=== PATIENT | male | born 1950 | race Caucasian/White ===

== ENCOUNTER → 2019-12-07 09:18 | Outpatient (BNVA) | payer MEDICARE, SELFPAY | PROVIDERS: Family Provider Nurse Practitioner; PCP Nurse Practitioner; Visit Provider Internal Medicine Cardiovascular Disease | DX: I48.91 Unspecified atrial fibrillation (principal); E11.9 Type 2 diabetes mellitus without complications; F41.9 Anxiety disorder, unspecified; E55.9 Vitamin D deficiency, unspecified; F41.1 Generalized anxiety disorder; E78.2 Mixed hyperlipidemia; E61.1 Iron deficiency; I10 Essential (primary) hypertension; I48.20 Chronic atrial fibrillation, unspecified | CPT/HCPCS: 36415; 80053; 80061; 83036; 85610 ==

== ENCOUNTER → 2020-01-04 09:23 | Outpatient (BNVA) | payer MEDICARE, SELFPAY | PROVIDERS: Family Provider Nurse Practitioner; PCP Nurse Practitioner; Visit Provider Internal Medicine Cardiovascular Disease | DX: I48.20 Chronic atrial fibrillation, unspecified (principal) | CPT/HCPCS: 85610 ==

== ENCOUNTER → 2020-02-01 09:35 | Outpatient (BNVA) | payer MEDICARE, SELFPAY | PROVIDERS: Family Provider Nurse Practitioner; PCP Nurse Practitioner; Visit Provider Internal Medicine Cardiovascular Disease | DX: I48.91 Unspecified atrial fibrillation (principal) | CPT/HCPCS: 85610 ==

== ENCOUNTER → 2020-02-29 09:11 | Outpatient (BNVA) | payer MEDICARE, SELFPAY | PROVIDERS: Family Provider Nurse Practitioner; PCP Nurse Practitioner; Visit Provider Internal Medicine Cardiovascular Disease | DX: I48.91 Unspecified atrial fibrillation (principal) | CPT/HCPCS: 85610 ==

== ENCOUNTER → 2020-03-28 09:14 | Outpatient (BNVA) | payer MEDICARE, SELFPAY | PROVIDERS: Family Provider Nurse Practitioner; PCP Nurse Practitioner; Visit Provider Internal Medicine Cardiovascular Disease | DX: I48.20 Chronic atrial fibrillation, unspecified (principal) | CPT/HCPCS: 85610 ==

== ENCOUNTER → 2020-04-27 09:41 | Outpatient (BNVA) | payer MEDICARE, SELFPAY | PROVIDERS: Family Provider Nurse Practitioner; PCP Nurse Practitioner; Visit Provider Internal Medicine Cardiovascular Disease | DX: I48.20 Chronic atrial fibrillation, unspecified (principal); Z79.01 Long term (current) use of anticoagulants | CPT/HCPCS: 85610 ==

== ENCOUNTER → 2020-05-25 09:06 | Outpatient (BNVA) | payer MEDICARE, SELFPAY | PROVIDERS: Family Provider Nurse Practitioner; PCP Nurse Practitioner; Visit Provider Internal Medicine Cardiovascular Disease | DX: I48.20 Chronic atrial fibrillation, unspecified (principal); Z79.01 Long term (current) use of anticoagulants | CPT/HCPCS: 85610 ==

== ENCOUNTER → 2020-06-14 08:41 | Outpatient (BNVA) | payer MEDICARE, SELFPAY | PROVIDERS: Family Provider Nurse Practitioner; PCP Nurse Practitioner; Visit Provider Nurse Practitioner | DX: E55.9 Vitamin D deficiency, unspecified (principal); E11.9 Type 2 diabetes mellitus without complications; F03.90 Unspecified dementia, unspecified severity, without behavioral disturbance, psychotic disturbance, mood disturbance, and anxiety; I10 Essential (primary) hypertension; F41.9 Anxiety disorder, unspecified | CPT/HCPCS: 80053; 80061; 81000; 82044; 82306; 83036; 85025; 87086 ==

== ENCOUNTER → 2020-06-22 08:59 | Outpatient (BNVA) | payer MEDICARE, SELFPAY | PROVIDERS: Family Provider Nurse Practitioner; PCP Nurse Practitioner; Visit Provider Internal Medicine Cardiovascular Disease | DX: I48.20 Chronic atrial fibrillation, unspecified (principal); Z79.01 Long term (current) use of anticoagulants | CPT/HCPCS: 85610 ==

== ENCOUNTER → 2020-07-20 09:06 | Outpatient (BNVA) | payer MEDICARE, SELFPAY | PROVIDERS: Family Provider Nurse Practitioner; PCP Nurse Practitioner; Visit Provider Internal Medicine Cardiovascular Disease | DX: I48.20 Chronic atrial fibrillation, unspecified (principal) | CPT/HCPCS: 85610 ==

== ENCOUNTER → 2020-08-17 09:40 | Outpatient (BNVA) | payer MEDICARE, SELFPAY | PROVIDERS: Family Provider Nurse Practitioner; PCP Nurse Practitioner; Visit Provider Internal Medicine Cardiovascular Disease | DX: I48.20 Chronic atrial fibrillation, unspecified (principal); Z79.01 Long term (current) use of anticoagulants | CPT/HCPCS: 85610 ==

== ENCOUNTER → 2020-09-13 08:34 | Outpatient (BNVA) | payer MEDICARE, SELFPAY | PROVIDERS: Family Provider Nurse Practitioner; PCP Nurse Practitioner; Visit Provider Nurse Practitioner | DX: E11.9 Type 2 diabetes mellitus without complications (principal); E55.9 Vitamin D deficiency, unspecified; F03.90 Unspecified dementia, unspecified severity, without behavioral disturbance, psychotic disturbance, mood disturbance, and anxiety; F41.9 Anxiety disorder, unspecified; I10 Essential (primary) hypertension | CPT/HCPCS: 80053; 83036 ==

== ENCOUNTER → 2020-09-14 08:56 | Outpatient (BNVA) | payer MEDICARE, SELFPAY | PROVIDERS: Family Provider Nurse Practitioner; PCP Nurse Practitioner; Visit Provider Internal Medicine Cardiovascular Disease | DX: I48.20 Chronic atrial fibrillation, unspecified (principal); Z79.01 Long term (current) use of anticoagulants | CPT/HCPCS: 85610 ==

== ENCOUNTER → 2020-09-21 08:55 | Outpatient (BNVA) | payer MEDICARE, SELFPAY | PROVIDERS: Family Provider Nurse Practitioner; PCP Nurse Practitioner; Visit Provider Internal Medicine Cardiovascular Disease | DX: I48.20 Chronic atrial fibrillation, unspecified (principal); Z79.01 Long term (current) use of anticoagulants | CPT/HCPCS: 85610 ==

== ENCOUNTER → 2020-10-05 09:15 | Outpatient (BNVA) | payer MEDICARE, SELFPAY | PROVIDERS: Family Provider Nurse Practitioner; PCP Nurse Practitioner; Visit Provider Internal Medicine Cardiovascular Disease | DX: I48.20 Chronic atrial fibrillation, unspecified (principal); Z79.01 Long term (current) use of anticoagulants | CPT/HCPCS: 85610 ==

== ENCOUNTER → 2020-11-02 09:10 | Outpatient (BNVA) | payer MEDICARE, SELFPAY | PROVIDERS: Family Provider Nurse Practitioner; PCP Nurse Practitioner; Visit Provider Internal Medicine Cardiovascular Disease | DX: I48.20 Chronic atrial fibrillation, unspecified (principal); Z79.01 Long term (current) use of anticoagulants | CPT/HCPCS: 85610 ==

== ENCOUNTER → 2020-11-30 09:02 | Outpatient (BNVA) | payer MEDICARE, SELFPAY | PROVIDERS: Family Provider Nurse Practitioner; PCP Nurse Practitioner; Visit Provider Internal Medicine Cardiovascular Disease | DX: Z79.01 Long term (current) use of anticoagulants (principal); I48.20 Chronic atrial fibrillation, unspecified | CPT/HCPCS: 85610 ==

== ENCOUNTER → 2020-12-29 10:30 | Outpatient (BNVA) | payer MEDICARE, SELFPAY | PROVIDERS: Family Provider Nurse Practitioner; PCP Nurse Practitioner; Visit Provider Internal Medicine Cardiovascular Disease | DX: I48.20 Chronic atrial fibrillation, unspecified (principal); Z79.01 Long term (current) use of anticoagulants | CPT/HCPCS: 85610 ==

== ENCOUNTER → 2021-01-26 09:34 | Outpatient (BNVA) | payer MEDICARE, SELFPAY | PROVIDERS: Family Provider Nurse Practitioner; PCP Nurse Practitioner; Visit Provider Internal Medicine Cardiovascular Disease | DX: I48.20 Chronic atrial fibrillation, unspecified (principal); Z79.01 Long term (current) use of anticoagulants | CPT/HCPCS: 85610 ==

== ENCOUNTER → 2021-02-23 09:32 | Outpatient (BNVA) | payer MEDICARE, SELFPAY | PROVIDERS: Family Provider Nurse Practitioner; PCP Nurse Practitioner; Visit Provider Internal Medicine Cardiovascular Disease | DX: Z79.01 Long term (current) use of anticoagulants (principal); I48.20 Chronic atrial fibrillation, unspecified | CPT/HCPCS: 85610 ==

== ENCOUNTER → 2021-03-02 09:19 | Outpatient (BNVA) | payer MEDICARE, SELFPAY | PROVIDERS: Family Provider Nurse Practitioner; PCP Nurse Practitioner; Visit Provider Internal Medicine Cardiovascular Disease | DX: Z79.01 Long term (current) use of anticoagulants (principal); I48.20 Chronic atrial fibrillation, unspecified | CPT/HCPCS: 85610 ==

== ENCOUNTER → 2021-03-13 11:12 | Outpatient (BNVA) | payer MEDICARE, SELFPAY | PROVIDERS: Family Provider Nurse Practitioner; PCP Nurse Practitioner; Visit Provider Nurse Practitioner | DX: E11.9 Type 2 diabetes mellitus without complications (principal); E55.9 Vitamin D deficiency, unspecified; F03.90 Unspecified dementia, unspecified severity, without behavioral disturbance, psychotic disturbance, mood disturbance, and anxiety; I10 Essential (primary) hypertension; F41.1 Generalized anxiety disorder; E78.2 Mixed hyperlipidemia | CPT/HCPCS: 80053; 80061; 82306; 82607; 83036; 85025 ==

== ENCOUNTER → 2021-03-16 09:11 | Outpatient (BNVA) | payer MEDICARE, SELFPAY | PROVIDERS: Family Provider Nurse Practitioner; PCP Nurse Practitioner; Visit Provider Internal Medicine Cardiovascular Disease | DX: I48.20 Chronic atrial fibrillation, unspecified (principal); Z79.01 Long term (current) use of anticoagulants | CPT/HCPCS: 85610 ==

== ENCOUNTER → 2021-03-23 09:20 | Outpatient (BNVA) | payer MEDICARE, SELFPAY | PROVIDERS: Family Provider Nurse Practitioner; PCP Nurse Practitioner; Visit Provider Internal Medicine Cardiovascular Disease | DX: I48.20 Chronic atrial fibrillation, unspecified (principal) | CPT/HCPCS: 85610 ==

== ENCOUNTER → 2021-04-20 09:07 | Outpatient (BNVA) | payer MEDICARE, SELFPAY | PROVIDERS: Family Provider Nurse Practitioner; PCP Nurse Practitioner; Visit Provider Internal Medicine Cardiovascular Disease | DX: I48.20 Chronic atrial fibrillation, unspecified (principal); Z79.01 Long term (current) use of anticoagulants | CPT/HCPCS: 85610 ==

== ENCOUNTER → 2021-05-18 09:02 | Outpatient (BNVA) | payer MEDICARE, SELFPAY | PROVIDERS: Family Provider Nurse Practitioner; PCP Nurse Practitioner; Visit Provider Internal Medicine Cardiovascular Disease | DX: I48.20 Chronic atrial fibrillation, unspecified (principal); Z79.01 Long term (current) use of anticoagulants | CPT/HCPCS: 85610 ==

== ENCOUNTER → 2021-06-15 09:29 | Outpatient (BNVA) | payer MEDICARE, SELFPAY | PROVIDERS: Family Provider Nurse Practitioner; PCP Nurse Practitioner; Visit Provider Internal Medicine Cardiovascular Disease | DX: I48.20 Chronic atrial fibrillation, unspecified (principal); Z79.01 Long term (current) use of anticoagulants | CPT/HCPCS: 85610 ==

== ENCOUNTER → 2021-07-13 09:39 | Outpatient (BNVA) | payer MEDICARE, SELFPAY | PROVIDERS: Family Provider Nurse Practitioner; PCP Nurse Practitioner; Visit Provider Internal Medicine Cardiovascular Disease | DX: Z79.01 Long term (current) use of anticoagulants (principal); I48.20 Chronic atrial fibrillation, unspecified | CPT/HCPCS: 85610 ==

== ENCOUNTER → 2021-08-10 09:34 | Outpatient (BNVA) | payer MEDICARE, SELFPAY | PROVIDERS: Family Provider Nurse Practitioner; PCP Nurse Practitioner; Visit Provider Internal Medicine Cardiovascular Disease | DX: I48.20 Chronic atrial fibrillation, unspecified (principal); Z79.01 Long term (current) use of anticoagulants | CPT/HCPCS: 85610 ==

== ENCOUNTER → 2021-09-04 10:00 | Outpatient (BNVA) | payer MEDICARE, SELFPAY | PROVIDERS: Family Provider Nurse Practitioner; PCP Nurse Practitioner; Visit Provider Nurse Practitioner | DX: E55.9 Vitamin D deficiency, unspecified (principal); E11.9 Type 2 diabetes mellitus without complications; F03.90 Unspecified dementia, unspecified severity, without behavioral disturbance, psychotic disturbance, mood disturbance, and anxiety; I10 Essential (primary) hypertension; F41.1 Generalized anxiety disorder; E78.2 Mixed hyperlipidemia | CPT/HCPCS: 80053; 80061; 82043; 82306; 83036 ==

== ENCOUNTER → 2021-09-07 09:33 | Outpatient (BNVA) | payer MEDICARE, SELFPAY | PROVIDERS: Family Provider Nurse Practitioner; PCP Nurse Practitioner; Visit Provider Internal Medicine Cardiovascular Disease | DX: I48.20 Chronic atrial fibrillation, unspecified (principal); Z79.01 Long term (current) use of anticoagulants | CPT/HCPCS: 85610 ==

== ENCOUNTER → 2021-10-05 09:22 | Outpatient (BNVA) | payer MEDICARE, SELFPAY | PROVIDERS: Family Provider Nurse Practitioner; PCP Nurse Practitioner; Visit Provider Internal Medicine Cardiovascular Disease | DX: I48.20 Chronic atrial fibrillation, unspecified (principal); Z79.01 Long term (current) use of anticoagulants | CPT/HCPCS: 85610 ==

== ENCOUNTER → 2021-11-02 09:53 | Outpatient (BNVA) | payer MEDICARE, SELFPAY | PROVIDERS: Family Provider Nurse Practitioner; PCP Nurse Practitioner; Visit Provider Internal Medicine Cardiovascular Disease | DX: I48.20 Chronic atrial fibrillation, unspecified (principal); Z79.01 Long term (current) use of anticoagulants | CPT/HCPCS: 85610 ==

== ENCOUNTER → 2021-11-16 09:52 | Outpatient (BNVA) | payer MEDICARE, SELFPAY | PROVIDERS: Family Provider Nurse Practitioner; PCP Nurse Practitioner; Visit Provider Internal Medicine Cardiovascular Disease | DX: I48.20 Chronic atrial fibrillation, unspecified (principal); Z79.01 Long term (current) use of anticoagulants | CPT/HCPCS: 85610 ==

== ENCOUNTER → 2021-11-30 11:30 | Outpatient (BNVA) | payer MEDICARE, SELFPAY | PROVIDERS: Family Provider Nurse Practitioner; PCP Nurse Practitioner; Visit Provider Internal Medicine Cardiovascular Disease | DX: I48.20 Chronic atrial fibrillation, unspecified (principal) | CPT/HCPCS: 85610 ==

== ENCOUNTER → 2021-12-28 09:01 | Outpatient (BNVA) | payer MEDICARE, SELFPAY | PROVIDERS: Family Provider Nurse Practitioner; PCP Nurse Practitioner; Visit Provider Internal Medicine Cardiovascular Disease | DX: Z79.01 Long term (current) use of anticoagulants (principal); I48.20 Chronic atrial fibrillation, unspecified | CPT/HCPCS: 85610 ==

== ENCOUNTER → 2022-01-08 08:59 | Outpatient (BNVA) | payer MEDICARE, SELFPAY | PROVIDERS: Family Provider Nurse Practitioner; PCP Nurse Practitioner; Visit Provider Internal Medicine Cardiovascular Disease | DX: I48.20 Chronic atrial fibrillation, unspecified (principal) | CPT/HCPCS: 85610 ==

== ENCOUNTER → 2022-02-05 09:11 | Outpatient (BNVA) | payer MEDICARE, SELFPAY | PROVIDERS: Family Provider Nurse Practitioner; PCP Nurse Practitioner; Visit Provider Internal Medicine Cardiovascular Disease | DX: Z79.01 Long term (current) use of anticoagulants (principal) ==

== ENCOUNTER 2022-02-25 00:36 | Emergency (ER) | payer MEDICARE, SELFPAY ==
[2022-02-25 00:46] VITALS: BP 147/97; PULSE 91; RESP 18; TEMP 36.7; O2SAT 99; BMI 27.8
--- NOTE | 2022-02-25 00:59 | W.ED.FALL ---
HPI - Fall General: Chief Complaint: Fall Stated Complaint: Fall Time Seen by Provider: 02/25/22 00:59 History of Present Illness: 72-year-old male patient comes in today with injury to the left anterior ribs from a fall injury yesterday. Patient reports worsening pain tonight. Patient appears in moderate pain. Patient appears nontoxic. Patient has a history of hypertension, coronary artery disease, CABG, diabetes, hyperlipidemia, and atrial fibrillation with the use of warfarin. MD complaint: fall Onset (ago): day(s) Fall from: standing Loss of consciousness: None Associated symptoms-after fall: Denies abdominal pain Review of Systems General: Reports: 10 or more systems reviewed and unremarkable except in HPI and below Const: Denies: fever(s) Resp: Reports: pain on inspiration GI: Denies: abdominal pain Musc: Reports: other (Left anterior rib pain) PFS ED PFSH: Medical History (Updated 02/25/22 @ 01:37 by TODD Sprague) Anxiety disorder, unspecified Atrial fibrillation, chronic Chronic anticoagulation Controlled diabetes mellitus Dementia Essential (primary) hypertension Iron deficiency Mixed hyperlipidemia Neuropathic peripheral nerve Vitamin D deficiency Surgical History History of appendectomy 1979 Hx of CABG in 1991 Family History Mother Diabetes Dementia Grandmother Heart disease Paternal Social History Second hand smoke exposure: No Smoking risk assessment/counseling performed?: No Alcohol intake: never Desire information about alcohol rehabilitation?: No Counseling given: No Desire information about substance/drug rehabilitation?: No Counseling given: No Adopted: No Caregiver/support person: No Lives independently: Yes Household members: spouse Housing: House Marital status: service: No Current occupational status: retired History of recent travel: No Current gender identity: Male Physical Exam Const: COMMON NORMALS: alert HENMT: COMMON NORMALS: atraumatic HEAD & SCALP: atraumatic Neck/C-Spine: COMMON NORMALS: full ROM Chest: CHEST: Yes tenderness rib (Right lower anterior ribs) Resp: COMMON NORMALS: normal respiratory effort AUSCULTATION: diminished lung sounds Cardio: COMMON NORMALS: regular rate and regular rhythm RATE: regular rate RHYTHM: regular rhythm GI: COMMON NORMALS: Soft to palpation and non-tender PALPATION: Yes Soft to palpation : COMMON NORMALS: Yes no CVA tenderness BLADDER/KIDNEY EXAM: Yes no CVA tenderness Back/Pelvis: COMMON NORMALS: no CVA tenderness Extremity: COMMON NORMALS: no pedal edema Neuro: SENSORIUM/ORIENTATION: Yes alert Skin: COMMON NORMALS: turgor normal GENERAL SKIN EXAM: turgor normal Course Vital Signs: Vital signs: Vital Signs Temperature 98.0 F 02/25/22 00:46 Pulse Rate 89 02/25/22 01:27 Respiratory Rate 18 02/25/22 01:27 Blood Pressure 134/91 02/25/22 01:27 Pulse Oximetry 94 02/25/22 01:27 MDM - Fall Medical Decision Making 72-year-old male patient comes in today for complaints of left rib pain. On exam patient has tenderness in the anterior left ribs. Decreased lung sounds in the bases. Abdomen soft nontender. Differential diagnosis includes contusion, rib fracture, pneumonia. X-ray showed some mild atelectasis in the left lower lung, a fracture of the #6 rib, no obvious pneumothorax or other pathology is noted. Recommended patient use incentive spirometer. Hydrocodone tablets for pain. And follow-up for worsening symptoms or new concerns. Patient reported understanding. Discharge Plan Discharge Patient Disposition: Home Clinical Impression: Fracture, rib Qualifiers: Encounter type: initial encounter Rib fracture type: single rib Fracture type: closed Laterality: left Qualified Code(s): S22.32XA - Fracture of one rib, left side, initial encounter for closed fracture Condition: Stable Prescriptions: New hydrocodone-acetaminophen 5-325 mg tablet 1 tab PO Q6H PRN (Reason: pain (scale score 7-10)) Qty: 14 0RF No Action enalapril maleate 5 mg tablet 5 mg PO BID Qty: 180 4RF metoprolol succinate [Toprol XL] 100 mg tablet extended release 24 hr 100 mg PO DAILY Qty: 90 4RF nitroglycerin [Nitro-Dur] 0.4 mg/hr patch 24 hour 1 patch TRANSDERMA Q24H Qty: 30 6RF Rx Instructions: allow nitrate-free interval of approx. 10-12 hrs per 24-hour period rosuvastatin [Crestor] 10 mg tablet 10 mg PO DAILY Qty: 90 4RF warfarin 1 mg tablet 1 mg PO DAILY Qty: 30 6RF Protocol: Dose Management Condition: Saturday Dose/Route: 5 mg Instruction: 1 x 5 mg tablet Condition: Saturday Dose/Route: 5 mg Instruction: 1 x 5 mg tablet Condition: Saturday Dose/Route: 5 mg Instruction: 1 x 5 mg tablet Condition: Saturday Dose/Route: 5 mg Instruction: 1 x 5 mg tablet Condition: Dose/Route: 6 mg Instruction: 1 x 1 mg tablet, 1 x 5 mg tablet Condition: Saturday Dose/Route: 5 mg Instruction: 1 x 5 mg tablet Condition: Saturday Dose/Route: 5 mg Instruction: 1 x 5 mg tablet Protocol Text: Adjustment Start Date: Saturday02/06/22 INR Value: 2.8 INR Date: 02/05/22 Recheck Date: 03/05/22 warfarin 5 mg tablet 5 mg PO DAILY Qty: 30 6RF Protocol: Dose Management Condition: Saturday Dose/Route: 5 mg Instruction: 1 x 5 mg tablet Condition: Saturday Dose/Route: 5 mg Instruction: 1 x 5 mg tablet Condition: Saturday Dose/Route: 5 mg Instruction: 1 x 5 mg tablet Condition: Saturday Dose/Route: 5 mg Instruction: 1 x 5 mg tablet Condition: Dose/Route: 6 mg Instruction: 1 x 1 mg tablet, 1 x 5 mg tablet Condition: Saturday Dose/Route: 5 mg Instruction: 1 x 5 mg tablet Condition: Saturday Dose/Route: 5 mg Instruction: 1 x 5 mg tablet Protocol Text: Adjustment Start Date: Saturday02/06/22 INR Value: 2.8 INR Date: 02/05/22 Recheck Date: 03/05/22 (DME) Accu-Chek Julianna Plus test strp Strip See Rx Instructions .ROUTE .MEDSUPPLY Qty: 50 5RF Rx Instructions: 1 strip daily aspirin [Aspir-Low] 81 mg tablet,delayed release (DR/EC) 81 mg PO DAILY PRN0RF folic acid 1 mg tablet 1 mg PO DAILY Qty: 30 0RF Rx Instructions: getting over the counter cholecalciferol (vitamin D3) 1,250 mcg (50,000 unit) capsule 50,000 unit PO .monthly Qty: 1 5RF donepezil [Aricept] 5 mg tablet 5 mg PO DAILY Qty: 30 5RF metformin 500 mg tablet extended release 24 hr 500 mg PO DAILY Qty: 30 5RF sertraline [Zoloft] 50 mg tablet 50 mg PO DAILY Qty: 30 5RF Discharge Orders: Discharge ED (Routine); Ordered 02/25/22 Ordered By: Dayne Scherer Referrals: Hao Jeffries FNP-C [Primary Care Provider] - Discharge Diet: Usual diet Discharge Activity: Increase activity as tolerated Patient Instructions: Rib Fracture (ED), Opioid Safety Activity Restrictions/Additional Instructions: Activity as tolerated. Use ice or heat to the area for comfort. Use incentive spirometer as directed. Splint the ribs with a pillow in order to take deep breaths and cough. Drink plenty of water with medication. Follow-up with primary care for further instruction. Return to the emergency department for new concerns. Coding Level of Care Code ED Weaving Supervisor for Marina Fwd Exam Comprehensive
--- NOTE | 2022-02-25 01:12 | XRR_ITS ---
PROCEDURE INFORMATION: Exam: XR Left Ribs with PA Chest Exam date and time: 02/25/2022 1:20 AM Age: 72 years old Clinical indication: Injury or trauma; Fall; Rib area, left side; Blunt trauma; Prior surgery; Surgery date: 6+ months; Surgery type: Cabg; Additional info: Fall injury TECHNIQUE: Imaging protocol: XR Left ribs with PA chest. Views: 3 views COMPARISON: CR Shoulder 2+ views, LEFT* 06/24/2019 10:13 AM FINDINGS: Lungs: Unremarkable. No consolidation. Pleural spaces: Unremarkable. No pleural effusion. No pneumothorax. Heart/Mediastinum: There is mild cardiomegaly. Bones/joints: There has been a median sternotomy. Nondisplaced left 6th rib fracture. Multiple old left rib fractures. XR/XR ribs LT mn 3V w CXR1V [id number] IMPRESSION: 1. Mild cardiomegaly. 2. Acute Nondisplaced left 6th rib fracture.
[2022-02-25 01:27] VITALS: BP 134/91; PULSE 89; RESP 18; O2SAT 94
[2022-02-25] MEDS: HYDROcodone-acetaminophen 10-325 mg Tablet 1 TAB PO (01:47)
== END 2022-02-25 02:05 | disposition home or self-care (01) ==
PROVIDERS: Emergency Provider Nurse Practitioner Family; PCP Nurse Practitioner
DX: S22.32XA Fracture of one rib, left side, initial encounter for closed fracture (principal); Z79.01 Long term (current) use of anticoagulants; Z79.84 Long term (current) use of oral hypoglycemic drugs; Z79.82 Long term (current) use of aspirin; E11.9 Type 2 diabetes mellitus without complications; F03.90 Unspecified dementia, unspecified severity, without behavioral disturbance, psychotic disturbance, mood disturbance, and anxiety; I10 Essential (primary) hypertension; E78.2 Mixed hyperlipidemia; Z95.1 Presence of aortocoronary bypass graft; I25.10 Atherosclerotic heart disease of native coronary artery without angina pectoris
CPT/HCPCS: 71101; 99283

== ENCOUNTER → 2022-03-05 09:22 | Outpatient (BNVA) | payer MEDICARE, SELFPAY | PROVIDERS: PCP Nurse Practitioner; Visit Provider Internal Medicine Cardiovascular Disease | DX: I48.20 Chronic atrial fibrillation, unspecified (principal); Z79.01 Long term (current) use of anticoagulants | CPT/HCPCS: 85610 ==

== ENCOUNTER → 2022-03-21 10:53 | Outpatient (BNVA) | payer MEDICARE, SELFPAY | PROVIDERS: PCP Nurse Practitioner; Visit Provider Nurse Practitioner | DX: R07.81 Pleurodynia (principal); S22.42XA Multiple fractures of ribs, left side, initial encounter for closed fracture; W19.XXXA Unspecified fall, initial encounter; Y92.009 Unspecified place in unspecified non-institutional (private) residence as the place of occurrence of the external cause | CPT/HCPCS: 71101 ==

== ENCOUNTER → 2022-04-02 09:59 | Outpatient (BNVA) | payer MEDICARE, SELFPAY | PROVIDERS: PCP Nurse Practitioner; Visit Provider Internal Medicine | DX: Z79.01 Long term (current) use of anticoagulants (principal) | CPT/HCPCS: 85610 ==

== ENCOUNTER → 2022-04-09 09:59 | Outpatient (BNVA) | payer MEDICARE, SELFPAY | PROVIDERS: PCP Nurse Practitioner; Visit Provider Internal Medicine | DX: Z79.01 Long term (current) use of anticoagulants (principal) | CPT/HCPCS: 85610 ==

== ENCOUNTER → 2022-04-10 11:30 | Outpatient (BNVA) | payer MEDICARE, SELFPAY | PROVIDERS: PCP Nurse Practitioner; Visit Provider Nurse Practitioner | DX: F41.1 Generalized anxiety disorder (principal); E11.9 Type 2 diabetes mellitus without complications; F03.90 Unspecified dementia, unspecified severity, without behavioral disturbance, psychotic disturbance, mood disturbance, and anxiety; E55.9 Vitamin D deficiency, unspecified | CPT/HCPCS: 80053; 80061; 82306; 82607; 83036; 84443; 85025 ==

== ENCOUNTER → 2022-04-16 10:02 | Outpatient (BNVA) | payer MEDICARE, SELFPAY | PROVIDERS: PCP Nurse Practitioner; Visit Provider Internal Medicine | DX: Z79.01 Long term (current) use of anticoagulants (principal) | CPT/HCPCS: 85610 ==

== ENCOUNTER → 2022-05-14 09:45 | Outpatient (BNVA) | payer MEDICARE, SELFPAY | PROVIDERS: PCP Nurse Practitioner; Visit Provider Internal Medicine | DX: Z79.01 Long term (current) use of anticoagulants (principal) | CPT/HCPCS: 85610 ==

== ENCOUNTER → 2022-05-17 09:53 | Outpatient (BNVA) | payer MEDICARE, SELFPAY | PROVIDERS: PCP Nurse Practitioner; Visit Provider Internal Medicine | DX: Z79.01 Long term (current) use of anticoagulants (principal) ==

== ENCOUNTER → 2022-05-21 09:58 | Outpatient (BNVA) | payer MEDICARE, SELFPAY | PROVIDERS: PCP Nurse Practitioner; Visit Provider Internal Medicine | DX: I48.20 Chronic atrial fibrillation, unspecified (principal) | CPT/HCPCS: 85610 ==

== ENCOUNTER → 2022-05-23 17:09 | Outpatient (BNVA) | payer MEDICARE, SELFPAY | PROVIDERS: PCP Nurse Practitioner; Visit Provider Internal Medicine | DX: Z79.01 Long term (current) use of anticoagulants (principal) ==

== ENCOUNTER → 2022-05-28 09:30 | Outpatient (BNVA) | payer MEDICARE, SELFPAY | PROVIDERS: PCP Nurse Practitioner; Visit Provider Internal Medicine | DX: I48.20 Chronic atrial fibrillation, unspecified (principal); Z79.01 Long term (current) use of anticoagulants | CPT/HCPCS: 85610 ==

== ENCOUNTER → 2022-05-31 10:41 | Outpatient (BNVA) | payer MEDICARE, SELFPAY | PROVIDERS: PCP Nurse Practitioner; Visit Provider Internal Medicine | DX: Z79.01 Long term (current) use of anticoagulants (principal) ==

== ENCOUNTER 2022-06-05 09:41 | Outpatient (CLI) | payer MEDICARE, SELFPAY | END 2022-06-05 09:42 | disposition home or self-care (01) | LOC: RAD 09:46 | PROVIDERS: PCP Nurse Practitioner; Visit Provider Internal Medicine | DX: Z51.81 Encounter for therapeutic drug level monitoring (principal); I48.20 Chronic atrial fibrillation, unspecified | CPT/HCPCS: 36415; 85610 ==

== ENCOUNTER → 2022-06-06 15:10 | Outpatient (BNVA) | payer MEDICARE, SELFPAY | PROVIDERS: PCP Nurse Practitioner; Visit Provider Internal Medicine | DX: I48.20 Chronic atrial fibrillation, unspecified (principal); Z51.81 Encounter for therapeutic drug level monitoring | CPT/HCPCS: 85610 ==

== ENCOUNTER → 2022-06-08 13:53 | Outpatient (BNVA) | payer MEDICARE, SELFPAY | PROVIDERS: PCP Nurse Practitioner; Visit Provider Internal Medicine | DX: Z79.01 Long term (current) use of anticoagulants (principal) ==

== ENCOUNTER → 2022-06-13 09:48 | Outpatient (BNVA) | payer MEDICARE, SELFPAY | PROVIDERS: PCP Nurse Practitioner; Visit Provider Internal Medicine | DX: I48.20 Chronic atrial fibrillation, unspecified (principal) | CPT/HCPCS: 85610 ==

== ENCOUNTER → 2022-06-15 13:18 | Outpatient (BNVA) | payer MEDICARE, SELFPAY | PROVIDERS: PCP Nurse Practitioner; Visit Provider Internal Medicine | DX: Z79.01 Long term (current) use of anticoagulants (principal) ==

== ENCOUNTER → 2022-06-20 09:30 | Outpatient (BNVA) | payer MEDICARE, SELFPAY | PROVIDERS: PCP Nurse Practitioner; Visit Provider Internal Medicine | DX: Z51.81 Encounter for therapeutic drug level monitoring (principal) | CPT/HCPCS: 85610 ==

== ENCOUNTER → 2022-06-22 08:14 | Outpatient (BNVA) | payer MEDICARE, SELFPAY | PROVIDERS: PCP Nurse Practitioner; Visit Provider Internal Medicine | DX: Z79.01 Long term (current) use of anticoagulants (principal) ==

== ENCOUNTER → 2022-06-27 11:26 | Outpatient (BNVA) | payer MEDICARE, SELFPAY | PROVIDERS: PCP Nurse Practitioner; Visit Provider Internal Medicine | DX: I48.20 Chronic atrial fibrillation, unspecified (principal) | CPT/HCPCS: 85610 ==

== ENCOUNTER → 2022-07-04 10:42 | Outpatient (BNVA) | payer MEDICARE, SELFPAY | PROVIDERS: PCP Nurse Practitioner; Visit Provider Internal Medicine | DX: I48.20 Chronic atrial fibrillation, unspecified (principal) | CPT/HCPCS: 85610 ==

== ENCOUNTER → 2022-07-11 09:24 | Outpatient (BNVA) | payer MEDICARE, SELFPAY | PROVIDERS: PCP Nurse Practitioner; Visit Provider Internal Medicine | DX: I48.20 Chronic atrial fibrillation, unspecified (principal) | CPT/HCPCS: 85610 ==

== ENCOUNTER 2022-07-12 12:29 | Inpatient (IN) | payer MEDICARE, SELFPAY ==
[2022-07-12] VITALS (89 sets, daily range): BP systolic 103–155; BP diastolic 79–112; PULSE 74–127; RESP 0–45; O2SAT 81–100; BMI 34.0
--- NOTE | 2022-07-12 12:33 | ECG_ITS ---
[facility] Test Date: 2022-07-12 Pat Name: Justyn Pedroza Department: Room: Gender: Male Crib Tender: : 1950 Requested By: Vince Millard Order Number: [id number] Easton MD: Yarelis Negron M.D. Measurements Intervals [place] Rate: 89 P: IA: QRS: 39 QRSD: 125 T: -40 QT: 378 QTc: 461 Interpretive Statements ATRIAL FIBRILLATION WITH ABERRANT CONDUCTION OR VENTRICULAR PREMATURE COMPLEXES LATERAL MYOCARDIAL INFARCTION , OF INDETERMINATE AGE INFERIOR MYOCARDIAL INFARCTION , OF INDETERMINATE AGE No previous ECG available for comparison Electronically Signed On 07-12-2022 18:39:30 CDT by Yarelis Negron M.D. [id number]
--- NOTE | 2022-07-12 12:41 | XR_ITS ---
WS: [id number] XR chest 1V portable [id number] REASON FOR EXAM: post cardioversion; cp FINDINGS: Previous coronary artery bypass surgery. Cardiomegaly. Chronic interstitial changes in both lower lung [place]. No definite acute chest abnormality. XR/XR chest 1V portable [id number] IMPRESSION: No acute chest abnormality.
--- NOTE | 2022-07-12 12:43 | ED_ITS ---
HPI - Chest Pain General: Chief Complaint: Chest Pain Stated Complaint: CHEST PAIN Time Seen by Provider: 07/12/22 12:40 Source: patient and EMS Mode of arrival: EMS Limitations: no limitations History of Present Illness: Patient was transported by EMS to the emergency department because of arrhythmia with chest pain. Patient states earlier this morning he was feeling like his heart was beating irregularly and fast. He states that it was associated with central chest pressure without radiation. He states his symptoms increased and then he called 911. Upon arrival 911/EMS evaluated the patient performed twelve-lead EKGs repetitively which showed a wide-complex tachycardia. The patient was treated appropriately with IV fluid bolus, adenosine however did not responded in fact the patient's blood pressure started to drop in the 50-60 range systolic. At that time he was cardioverted with 100 J successfully. The patient converted to a generally sinus rhythm of narrow complex QRSs. Patient currently denies any chest pain. He states that he may have had a similar episode several years ago associated post CABG but has no history that he is aware of recurrent rhythm issues. EMS does report that he takes Coumadin and so 1 wonders if he has atrial fib chronically. He has not been recently ill. He has not taken any of his usual medications today because of this current intervention. Patient did receive 324 mg of aspirin via EMS prior to arrival. MD complaint: chest heaviness Pertinent past history: coronary artery disease and CABG Onset: during rest Pain location: substernal Pain radiation: none Associated symptoms: Reports dyspnea and palpitations; Deny abdominal pain, fever(s) or vomiting Review of Systems Const: Denies: fever(s) or chills Eyes: Denies: change in vision ENMT: Denies: odynophagia or nasal congestion Card: Reports: chest pain, palpitations and lightheadedness Resp: Reports: dyspnea; Denies: productive cough, non-productive cough, wheezing or stridor GI: Denies: abdominal pain, vomiting or diarrhea : Denies: flank pain, difficulty urinating or dysuria Musc: Denies: neck pain, back pain, extremity pain or extremity swelling Skin/Breast: Denies: rash Neuro: Denies: headache(s), numbness in extremities or weakness in extremities Endo: Denies: polyuria or polydipsia Ernie/Lymph: Reports: easy bruising; Denies: easy bleeding PFSH ED PFSH: Medical History (Updated 07/12/22 @ 14:14 by Vince Millard DO) Anxiety disorder, unspecified Atrial fibrillation, chronic Chronic anticoagulation Controlled diabetes mellitus Dementia Essential (primary) hypertension Iron deficiency Mixed hyperlipidemia Neuropathic peripheral nerve Vitamin D deficiency Surgical History History of appendectomy 1979 Hx of CABG in 1991 Family History Mother Diabetes Dementia Grandmother Heart disease Paternal Social History Smoking and tobacco status: former smoker Second hand smoke exposure: No Smoking risk assessment/counseling performed?: No Alcohol intake: never Desire information about alcohol rehabilitation?: No Counseling given: No Desire information about substance/drug rehabilitation?: No Counseling given: No Adopted: No Caregiver/support person: No Lives independently: Yes Household members: spouse Housing: House Marital status: service: No Current occupational status: retired History of recent travel: No Current gender identity: Male Physical Exam Narrative: EXAM NARRATIVE: Patient is currently slightly anxious but cooperative. He answers questions in a goal-directed fashion. He is alert. Const: COMMON NORMALS: average body habitus and patient oriented x3 GENERAL APPEARANCE: cooperative HENMT: COMMON NORMALS: normocephalic, Normal nasal mucous membranes and turbinates present and moist oral mucous membranes HEAD & SCALP: normocephalic NOSE: Normal nasal mucous membranes and turbinates present Eye: COMMON NORMALS: Equal, round and reactive pupils present, EOMs intact bilaterally and conjunctivae normal CONJUNCTIVA: Yes conjunctivae normal PUPIL: Yes Equal, round and reactive pupils present Neck/C-Spine: COMMON NORMALS: full ROM, no meningeal signs, no JVD and No carotid bruits Chest: COMMONS NORMALS: normal inspection of the chest (Midline sternotomy scar) and normal palpation of entire chest wall Resp: COMMON NORMALS: normal respiratory effort, No retractions, No use of a ccessory muscles and clear to auscultation bilaterally EFFORT & INSPECTION: Yes able to speak in complete sentences AUSCULTATION: clear to auscultation bilaterally Cardio: COMMON NORMALS: no JVD, regular rate, regular rhythm (Appears to be irregularly irregular), No murmurs present (Cardio) and Peripheral pulses 2+ throughout RATE: regular rate RHYTHM: regular rhythm (Appears to be irregularly irregular) PERIPHERAL PULSES: Peripheral pulses 2+ throughout GI: COMMON NORMALS: Normal to inspection, nondistended, normoactive bowel sounds present, Soft to palpation and no masses PALPATION: Yes Soft to palpation : COMMON NORMALS: Yes no CVA tenderness BLADDER/KIDNEY EXAM: Yes no CVA tenderness Back/Pelvis: COMMON NORMALS: no CVA tenderness, thoracic and lumbar spine normal to inspection, no thoracic nor lumbar tenderness, thoraco-lumbar ROM normal and straight leg raise negative bilaterally Extremity: COMMON NORMALS: normal to inspection, full ROM, no calf tenderness and no pedal edema Neuro: COMMON NORMALS: patient oriented x3, moves all extremities, no focal motor deficits and no sensory deficits noted MENINGEAL SIGNS: Yes no meningeal signs Psych: COMMON NORMALS: mental status grossly normal Skin: COMMON NORMALS: no rashes or lesions noted and turgor normal GENERAL SKIN EXAM: no rashes or lesions noted and turgor normal Course ED course: Reviewed multiple strips from EMS. Appears to be a wide-complex tachycardia just prior to electrocardioversion certainly could have been V. tach or A. fib with aberrancy. Reevaluation(s): Reevaluation #1: Remained stable. His rhythm remains in a controlled ventricular response with the underlying atrial fib. Not displayed any other arrhythmias while in the emergency department. His initial troponin is reassuring. Chest x-ray is reassuring. His BNP is elevated but I have no baseline to compare with and with a clear chest x-ray uncertain if this is an acute change or not. Reviewed with noninterventional digital producer and they agree that the patient likely needs to be placed in observation at this time. He is appropriately anticoagulated with an INR of 2.12. Time: 14:12 Consultations: Consultation #1: Discussed with digital producer, Dr. Franklin who will agreed the patient likely would benefit from a short stay observation to ensure that he remains in a controlled ventricular rhythm. Time: 14:13 Consultation #2: Discussed with Dr. Barrios who agreed to admit the patient Time: 14:53 [facility] - Chest Pain Medical Decision Making This patient who was transported via EMS with history of chest pain with rapid heart rate and discovered to be in a wide-complex tachycardia. Prior to arrival he was given Identicard and then became hypotensive and received cardioversion which converted him back to his [place] rhythm. His evaluation here finds no evidence of ACS or ongoing ischemia. He appears to have atrial fibrillation with a Murphy conduction. He has adequate adequately anticoagulated. We feel that the patient is warranted observation time to ensure that his rhythm remains controlled and further establish that there is no ongoing ischemia. Medical Records I reviewed the patient's medical records. Lab Data I reviewed the patient's lab results. : 07/12/22 12:39 07/12/22 12:39 Radiology Impressions Chest X-Ray 07/12/22 12:41 IMPRESSION: No acute chest abnormality. Laboratory Results WBC 7.7 10^3/uL (4.0-10.0) 07/12/22 12:39 RBC 4.74 10^6/uL (4.1-5.3) 07/12/22 12:39 Hgb 14.6 g/dL (11.7-16.6) 07/12/22 12:39 Hct 44.8 % (42.0-52.0) 07/12/22 12:39 MCV 94.5 fl (80-94) H 07/12/22 12:39 MCH 30.8 pg (28.0-34.0) 07/12/22 12:39 MCHC 32.6 g/dL (30.0-36.0) 07/12/22 12:39 RDW 13.6 % (12.1-15.1) 07/12/22 12:39 Plt Count 144 10^3/cmm (130-400) 07/12/22 12:39 MPV 9.3 fL (7.4-10.4) 07/12/22 12:39 Neut % (Auto) 79.2 % 07/12/22 12:39 Lymph % (Auto) 11.1 % 07/12/22 12:39 [place] % (Auto) 6.4 % 07/12/22 12:39 Eos % (Auto) 1.4 % 07/12/22 12:39 Baso % (Auto) 0.5 % 07/12/22 12:39 Neut # (Auto) 6.05 10^3/uL (1.8-7.7) 07/12/22 12:39 Lymph # (Auto) 0.9 10^3/uL (0.8-4.8) 07/12/22 12:39 [place] # (Auto) 0.5 10^3/uL (0.2-0.9) 07/12/22 12:39 Eos # (Auto) 0.1 10^3/uL (0.0-0.8) 07/12/22 12:39 Baso # (Auto) 0.0 10^3/uL (0.0-0.1) 07/12/22 12:39 Nucleated RBC % (auto) 0 % 07/12/22 12:39 Nucleated RBCs # 0.0 /100WBC 07/12/22 12:39 PT 24.10 SECONDS (12.1-14.9) H 07/12/22 12:39 INR 2.12 (0.8-1.2) H 07/12/22 12:39 APTT 28.2 SECONDS (23.9-36.7) 07/12/22 12:39 Sodium 139 mmol/L (136-145) 07/12/22 12:39 Potassium 5.1 mmol/L (3.5-5.1) 07/12/22 12:39 Chloride 103 mmol/L (98-107) 07/12/22 12:39 Carbon Dioxide 24 mmol/L (22-29) 07/12/22 12:39 Anion Gap 17.1 (5-19) 07/12/22 12:39 BUN 11 mg/dL (8-23) 07/12/22 12:39 Creatinine 0.9 mg/dL (0.7-1.2) 07/12/22 12:39 GFR Calculation 83.4 mL/min (90-130) L 07/12/22 12:39 Glucose 227 mg/dL (65-115) H 07/12/22 12:39 Calculated Osmolality 295 mOsm/kg (285-295) 07/12/22 12:39 Calcium 8.9 mg/dL (8.5-10.5) 07/12/22 12:39 Total Bilirubin 0.8 mg/dL (0.15-1.2) 07/12/22 12:39 AST 24 U/L (0-40) 07/12/22 12:39 ALT 17 U/L (0-41) 07/12/22 12:39 Alkaline Phosphatase 56 IU/L (40-130) 07/12/22 12:39 Troponin T Baseline 11 ng/L (0-15) 07/12/22 12:39 NT-Pro-B Natriuret Pep 2199 pg/mL (0-125) H 07/12/22 12:39 Total Protein 6.7 g/dL (6.6-8.7) 07/12/22 12:39 Albumin 4.1 g/dL (3.5-5.2) 07/12/22 12:39 Globulin 2.6 g/dL (1.3-4.6) 07/12/22 12:39 EKG Data EKG 1: EKG interpretation time: 12:49 Interpretation: Resting EKG shows what appears to be an irregularly irregular rhythm suggestive of atrial fibrillation. Occasional PVCs noted. No acute ST-T wave changes noted. EKG 2: I personally reviewed and interpreted this EKG as follows: EKG interpretation time: 14:27 Interpretation: Second EKG this visit reveals ventricular rate of 85 bpm. Underlying rhythm is atrial fibrillation. Appears to have QRSs, consistent with a Murphy C and conduction. No acute ST-T wave changes noted. Discharge Plan Discharge Patient Disposition: Placed in Observation Clinical Impression: Atrial fibrillation, chronic, Sustained supraventricular tachycardia Coding Level of Care Code ED Starch Treating Assistant for Chg Fwd Exam Comprehensive
--- NOTE | 2022-07-12 12:46 | PC.NURSE ---
PT PLACED ON CONTINUOS NIBP, SPO2, AND CM
[2022-07-12 12:52] LABS: Basophils % 0.5 %; Eosinophils # 0.1 10^3/uL (0.0-0.8); Eosinophils % 1.4 %; Hematocrit 44.8 % (42.0-52.0); Hemoglobin 14.6 g/dL (11.7-16.6); Lymphocytes # 0.9 10^3/uL (0.8-4.8); Lymphocytes % 11.1 %; Mean Corpuscular HGB Conc 32.6 g/dL (30.0-36.0); Mean Corpuscular Hemoglobin 30.8 pg (28.0-34.0); Mean Corpuscular Volume 94.5 fl (80-94); Mean Platelet Volume 9.3 fL (7.4-10.4); Monocytes # 0.5 10^3/uL (0.2-0.9); Monocytes % 6.4 %; Neutrophils # 6.05 10^3/uL (1.8-7.7); Neutrophils % 79.2 %; Nucleated Red Blood Cells % 0 %; Platelet Count 144 10^3/cmm (130-400); Red Blood Count 4.74 10^6/uL (4.1-5.3); Red Cell Distribution Width 13.6 % (12.1-15.1); White Blood Count 7.7 10^3/uL (4.0-10.0)
[2022-07-12] MEDS: magnesium sulfate premix 2 GM/50 ML PIGGYBACK IV (13:03)
[2022-07-12 13:11] LABS: INR 2.12 (0.8-1.2); Partial Thromboplastin Time 28.2 SECONDS (23.9-36.7)
[2022-07-12 13:16] LABS: Troponin(5th) Baseline 11 ng/L (0-15)
[2022-07-12 13:26] LABS: Alanine Aminotransferase 17 U/L (0-41); Albumin Level 4.1 g/dL (3.5-5.2); Alkaline Phosphatase 56 IU/L (40-130); Anion Gap 17.1 (5-19); Aspartate Amino Transferase 24 U/L (0-40); Blood Urea Nitrogen 11 mg/dL (8-23); Calcium 8.9 mg/dL (8.5-10.5); Carbon Dioxide 24 mmol/L (22-29); Chloride 103 mmol/L (98-107); Globulin 2.6 g/dL (1.3-4.6); Glomerular Filtration Rate 83.4 mL/min (90-130); Glucose 227 mg/dL (65-115); NT Pro B Type Natriuretic Pept 2199 pg/mL (0-125); Osmolality Calculated 295 mOsm/kg (285-295); Potassium 5.1 mmol/L (3.5-5.1); Sodium 139 mmol/L (136-145); Total Bilirubin 0.8 mg/dL (0.15-1.2); Total Protein 6.7 g/dL (6.6-8.7)
--- NOTE | 2022-07-12 14:25 | ECG_ITS ---
[facility] Test Date: 2022-07-12 Pat Name: Justyn Pedroza Department: Room: Gender: Male Pile Header: : 1950 Requested By: Vince Millard Order Number: [id number] Easton MD: Yarelis Negron M.D. Measurements Intervals [place] Rate: 85 P: OR: QRS: 40 QRSD: 125 T: 14 QT: 388 QTc: 462 Interpretive Statements ATRIAL FIBRILLATION WITH ABERRANT CONDUCTION OR VENTRICULAR PREMATURE COMPLEXES INFERIOR MYOCARDIAL INFARCTION , PROBABLY OLD [40+ ms Q WAVE AND/OR ST/T ABNORMALITY IN II/aVF] No previous ECG available for comparison Electronically Signed On 07-12-2022 18:54:24 CDT by Yarelis Negron M.D. [id number]
--- NOTE | 2022-07-12 14:30 | PC.PHAR ---
PT AND PTS VERIFIED PTS MEDICATIONS-PTS STATES HEART CARE DCED THE ARICEPT 10MG DAILY FILLED 06/25/22 30D/S AND ZOLOFT 50MG DAILY FILLED 04/10/22 90D/S-NOTES ARE MADE IN THE PHARMACY COMMENTS
--- NOTE | 2022-07-12 15:04 | USCV_ITS ---
Justyn Pedroza Age: 72 Gender: M : 1950 Exam Date: 07/12/2022 15:51 Ordering Phys: Juni Linda MD Technologist: Tereso Tate [place]am [place] [facility] [place]: cardiomyopathy BP: 154 / 99 HR: 125 Rhythm: Other Technical Quality: Adequate MEASUREMENTS (Male / Female) Normal Values 2D ECHO LV Diastolic Diameter PLAX 5.0 cm 4.2 - 5.9 / 3.9 - 5.3 cm LV Systolic Diameter PLAX 4.1 cm IVS Diastolic Thickness 0.9 cm 0.6 - 1.0 / 0.6 - 0.9 cm IVS Systolic Thickness 0.7 cm LVPW Diastolic Thickness 0.7 cm 0.6 - 1.0 / 0.6 - 0.9 cm LVPW Systolic Thickness 0.7 cm LVOT Diameter 2.0 cm LV Ejection Fraction 2D Teich 35.2 % LV Ejection Fraction MOD 2C 28.3 % LV Ejection Fraction 2C AL 29.7 % LA Diameter 4.2 cm LA Width 3.7 cm LA Height 6.5 cm RA Width 4.5 cm RA Height 5.1 cm Aorta at Sinotubular Diameter 2.6 cm IVC Diameter 1.8 cm M-MODE Aortic Annulus Diameter 2.8 cm LA Ao Ratio MM 1.4 MV E Point Septal Separation 0.8 cm DOPPLER AV Peak Velocity 112.3 cm/s LVOT Peak Velocity 77.0 cm/s AV Area Cont Eq vti 2.6 cm squared AV Area Cont Eq pk 2.2 cm squared MV Peak Velocity 157.0 cm/s Right Atrial Pressure 3.0 mmHg RV Acceleration Time 0.3 s RV Ejection Time 0.1 s RV AcT/ET 3.7 FINDINGS Left Ventricle Mildly dilated LV cavity with a diminished ejection fraction of 30%. Diffuse hypokinesia of the left ventricle. No filling defects are noted Right Ventricle Possibly normal RV size and ejection fraction Right Atrium Mildly increased right atrial size. Left Atrium Moderately increased left atrial size. Mitral Valve Thickened mitral valve. Mild mitral annular calcification. Mild mitral valve regurgitation. Aortic Valve Thickened aortic valve. Tricuspid Valve Thickened tricuspid valve. Pulmonic Valve Pulmonic valve not well visualized. Pericardium No pericardial effusion. Aorta Normal aortic annulus size. IVC Normal inferior vena cava. CONCLUSIONS Mildly dilated LV cavity with a diminished ejection fraction of 30%. Diffuse hypokinesia of the left ventricle. No filling defects are noted. (Echo contrast was used for endocardial delineation and LV function analysis) Mildly increased right atrial size. Moderately increased left atrial size. Thickened mitral valve. Mild mitral annular calcification. Mild mitral valve regurgitation. Thickened aortic valve. Thickened tricuspid valve. There is no pericardial effusion. Dr Jose Franklin MD [facility] (Electronically Signed) Final Date: 12 July 2022 22:47 S
[2022-07-12 15:05] LABS: Troponin 5 2HR 20.58 ng/L (0-15)
[2022-07-12 15:07] LABS: Troponin 5 2HR Delta 9.58 ABS# (0-10)
--- NOTE | 2022-07-12 15:08 | PM.HP ---
Providers/Chief Complaint Primary Care Provider: Hao Jeffries, HARMONYC Chief Complaint: CHEST PAIN History of Present Illness Justyn Pedroza is a 72 year old male with past medical history of atrial fibrillation, post CABG, ischemic cardiomyopathy with a EF of 40% on echocardiogram from more than 5 years ago, normal stress test more than 5 years ago, type 2 diabetes mellitus, chronic anticoagulation with Coumadin, hypertension who is to follow-up with Dr. Herring with last visit in December 2021 was brought to the ER today by EMS. As per the patient's family, he has been feeling on and off dizzy, weak with jitteriness for last 2 days. Today he was feeling the same way and he had episode of extreme dizziness so the EMS was called. On arrival EMS found him to be in wide-complex tachycardia for which he received 2 boluses of adenosine after which his blood pressure dropped and he was eventually cardioverted. After the patient he has been having occasional chest pressure-like symptoms along with the episodes. The symptoms started after he had an episode of what he felt like heartburn around 4 days ago. As baseline he does not have any difficulty in breathing or chest pain on rest or exertion other than these current episodes. As per the family they have been having difficulty maintaining his anticoagulation with Coumadin recently and they have been a trying to go up on the medications. He supposed to take 6 mg of Coumadin Saturday and along with 5 mg of Coumadin on all the other days. In the ER, he was given 2 g of IV magnesium. Examination is, clean comfortably in bed, slightly anxious, having frequent VPCs. Review of Systems General: Reports: 10 or more systems reviewed and unremarkable except in HPI and below Const: Denies: fever(s), chills, body aches, change in appetite, change in weight, malaise, night sweats, diaphoresis, change in sleep pattern, daytime sleepiness or snoring Eyes: Denies: change in vision, blurry vision, photophobia, eye discomfort or eye discharge ENMT: Denies: throat pain, enlarged tonsils, hoarseness, mouth pain, oral sores, dry mouth, tinnitus, nasal congestion or post nasal drip Card: Denies: chest pain, palpitations, irregular heart rhythm, edema, swelling of feet/ankles, lightheadedness, syncope, pre-syncope, dyspnea on exertion, orthopnea, leg pain with exertion or acrocyanosis Resp: Denies: dyspnea, productive cough, non-productive cough, wheezing, stridor, pain on inspiration, change in phlegm color, hemoptysis or chest congestion GI: Denies: abdominal pain, nausea, vomiting, hematemesis, coffee ground emesis, dysphagia, heartburn, diarrhea, constipation, bloating, GI cramping, change in bowel habits, pain on defecation, hematochezia or melena : Denies: flank pain, difficulty urinating, dysuria, urinary frequency, urinary urgency, urinary hesitancy, urinary dribbling, difficulty starting urination, change in urine stream, nocturia or hematuria Musc: Denies: neck pain, back pain, extremity pain, joint pain, joint swelling, joint redness, joint stiffness or limited range of motion Neuro: Denies: headache(s), numbness in extremities, weakness in extremities, sensory changes, lack of coordination, difficulty walking, frequent falls, dizziness, vertigo, confusion, Slurred speech present, difficulty communicating thoughts or seizure-like activity Psych: Denies: anxiety, depression, mood swings, panic attacks, hopelessness or irritability Endo: Denies: polyuria, polydipsia, tired all the time, cold intolerance, excessive sweating, flushing or heat intolerance Ernie/Lymph: Denies: easy bruising or easy bleeding All/Imm: Denies: tongue swelling, facial swelling or acute wheezing Medications/Allergies Home Medications Medication Instructions Recorded Confirmed Last Taken Type blood sugar diagnostic (Accu-Chek #50 ea 03/13/21 07/12/22 Unknown Rx Julianna Plus test strp) enalapril maleate 5 mg tablet 5 mg PO BID #180 tabs 12/11/21 07/12/22 07/12/22 08:00 Rx nitroglycerin 0.4 mg/hr 1 patch transdermal Q24H #30 ea 12/11/21 07/12/22 07/11/22 Rx transdermal 24 hour patch (Nitro-Dur) aspirin 81 mg tablet,delayed 81 mg PO QAM 07/12/22 07/12/22 07/12/22 08:00 History release cholecalciferol (vitamin D3) 1,250 50,000 unit PO Q30D 07/12/22 07/12/22 07/02/22 History mcg (50,000 unit) capsule cyanocobalamin (vitamin B-12) 1,000 mcg PO DAILY 07/12/22 07/12/22 07/11/22 History 1,000 mcg tablet (Vitamin B-12) ferrous sulfate 325 mg (65 mg 325 mg PO DAILY 07/12/22 07/12/22 07/11/22 History iron) tablet (iron) folic acid 1 mg tablet 1 mg PO QAM 07/12/22 07/12/22 07/12/22 08:00 History magnesium oxide 400 mg PO DAILY 07/12/22 07/12/22 07/11/22 History metformin 500 mg tablet,extended 500 mg PO QAM 07/12/22 07/12/22 07/12/22 08:00 History release 24 hr metoprolol succinate 100 mg 100 mg PO QAM 07/12/22 07/12/22 07/12/22 History tablet,extended release 24 hr (Toprol XL) potassium gluconate 595 mg (99 mg) 595 mg PO DAILY 07/12/22 07/12/22 07/11/22 History tablet rosuvastatin 10 mg tablet (Crestor) 10 mg PO QAM 07/12/22 07/12/22 07/12/22 History warfarin 5 mg tablet See Rx Instructions .Route .COMPLEX 07/12/22 07/12/22 Unknown History warfarin 6 mg tablet 6 mg PO .ON AND Sat07/12/22 07/12/22 07/12/22 History Allergies Allergy/AdvReac Type Severity Reaction Status Date / Time venlafaxine [From Effexor] Allergy hypertensio Verified 07/12/22 14:12 n PFSH Acute PFSH: Medical History (Updated 07/12/22 @ 15:47 by Juni Linda MD) Anxiety disorder, unspecified Atrial fibrillation, chronic CAD (coronary artery disease) Chronic anticoagulation Controlled diabetes mellitus Dementia Essential (primary) hypertension Iron deficiency LBBB (left bundle branch block) Mixed hyperlipidemia Neuropathic peripheral nerve Vitamin D deficiency Surgical History History of appendectomy 1979 Hx of CABG in 1991 Family History Mother Diabetes Dementia Grandmother Heart disease Paternal Social History Smoking and tobacco status: former smoker Second hand smoke exposure: No Smoking risk assessment/counseling performed?: No Alcohol intake: never Desire information about alcohol rehabilitation?: No Counseling given: No Desire information about substance/drug rehabilitation?: No Counseling given: No Adopted: No Caregiver/support person: No Lives independently: Yes Household members: spouse Housing: House Marital status: service: No Current occupational status: retired History of recent travel: No Current gender identity: Male Vitals/I&O/Wt Weight last 48 hrs Weight 104.326 kg Physical Exam Narrative: EXAM NARRATIVE: General: No acute distress, AO x3, NC oxygen supplementation, anxious HEENT: PERRLA, pupils bilaterally equal and reactive Chest: Bilateral normal vesicular breath sounds, occasional rhonchi present all over the lung [place] CVS: S1-S2 regular with frequent VPCs, soft pansystolic murmur at apex, no tachycardia, no gallops, no rubs Abdomen: Soft, nontender, no organomegaly, bowel sounds present, morbidly obese Neuro: No focal deficits, no facial deformity, AO x3, power 5/5 in all limbs Data : 07/12/22 12:39 07/12/22 12:39 A&P Assessment and plan (1) Arrhythmia: Status: Acute (2) Wide-complex tachycardia: Status: Acute (3) Atrial fibrillation, chronic: Status: Chronic (4) Cardiomyopathy, ischemic: Status: Acute (5) CAD (coronary artery disease): Status: Acute (6) Essential (primary) hypertension: Status: Chronic (7) Mixed hyperlipidemia: Status: Chronic (8) LBBB (left bundle branch block): Status: Acute Plan Arrhythmia: Patient does have a history of chronic atrial fibrillation with LBB. On monitor having frequent VPCs. Also has a history of chronic ischemic cardiomyopathy along with CABG with last known EF of 40%. Check magnesium. Keep magnesium around 2 and potassium around 4. Cannot rule out further ischemic etiology versus possible scar etiology. Check echocardiogram, Lexiscan stress test. N.p.o. after midnight, urine drug screen, urinalysis. Check A1c, lipid panel. Continue with home dose of aspirin, statin, beta-page. Telemetry. Hold off on Coumadin for now. Switch to Lovenox 1 mg/kg body weight every 12 hourly as per creatinine clearance. Cardiology has been consulted from the ER. Continue other chronic medications. Check INR daily. Atrial fibrillation Hypertension Dyslipidemia Check iron panel, TSH, vitamin B12, folate level, A1c, lipid panel. Analgesia: Tylenol as needed Glycemic control: Not needed. Hold off on home OHA's. Check A1c. Nutrition: Cardiac diet CODE STATUS: Full code PUD prophylaxis: Famotidine DVT prophylaxis: Lovenox 1 mg/kg body weight every 12 hourly Admit to CSU. This documentation was created by [employer] horticulture instructor software. Every effort was made to ensure accuracy of horticulture instructor. Any obvious errors or omissions should be clarified with the author of the document. Attestations Medical Necessity Statement*: Requires admission under observation for further evaluation and work-up of arrhythmia in a patient with chronic A. fib, LBBB who has baseline ischemic cardiomyopathy post CABG Time Spent in Patient Care: Greater than 35 minutes Coding Level of Care Code Acute Fugitive Investigator for g Fwd Diagnoses Arrhythmia I49.9 Wide-complex tachycardia I47.2 Atrial fibrillation, chronic I48.20 Cardiomyopathy, ischemic I25.5 CAD (coronary artery disease) I25.10 Essential (primary) hypertension I10 Mixed hyperlipidemia E78.2 LBBB (left bundle branch block) I44.7
[2022-07-12 15:52] LABS: Iron 110 ug/dL (59-158); Magnesium 1.8 mg/dL (1.7-2.3); Phosphorus 3.7 mg/dL (2.5-4.5); Thyroid Stimulating Hormone 3.15 uIU/mL (0.27-4.20); Total Iron Binding Capacity 229 mcg/dl; Unsaturated Iron Binding 119 ug/dL (112-347)
[2022-07-12] MEDS: enoxaparin 100 mg/mL Syringe SUBCUT (16:00)
--- NOTE | 2022-07-12 16:13 | P.CONIM_ITS ---
Providers/Reason For Consult Consulting Physician/Specialty*: ALESSANDRO Franklin MD/cardiology Reason for Consult*: Patient with wide-complex tachycardia/atrial fibrillation Requesting Physician: Dr. Linda/Dr. Millard Attending Physician: Juni Linda MD Primary Care Provider: TODD Boggs-C History of Present Illness History of Present Illness Justyn Pedroza is a 72 year old male, with a history of ischemia cardiomyop athy, chronic atrial fibrillation, he is presenting with complaints of sudden onset of generalized weakness, jitteriness and a near syncopal episode. He was apparently in the grocery store while this was happening. Because of the symptoms, an ambulance was called in. He was found to be in wide-complex tachycardia at that time. IV adenosine x2 was ineffective. He was found to be becoming hypotensive. At that time, he got cardioverted by EMS. His rhythm returned to atrial fibrillation with a controlled ventricular response rate. He denies any chest pain or chest tightness. Still has some feeling of generalized weakness. He has some baseline shortness of breath with activities. No other specific complaints. Cardiology consult is requested for further cardiac evaluation recommendations. Mr. Pedroza has a history of atherosclerotic heart disease and had a myocardial infarction in 1990. In 1991, he had a single vessel bypass surgery at [facility] in [place]. Apparently, he occluded the bypass graft subsequently. He had an angiogram in December of 2004 and was found to have a patent venous graft in the right coronary artery with a total occlusion of [place] right coronary artery. The patient had myocardial perfusion imaging since then which revealed persistent perfusion defect in the distribution of the right coronary artery. Most recently on 08/07/2012, he had a myocardial perfusion imaging. At that time, he also was found to have fixed defect in the distribution of the right coronary artery. His left ventricle was found to be dilated with an eject ion fraction around 40%. He also had features of right ventricular hypertrophy, at that time. This patient apparently has been in his baseline state of health up until this morning when he had this event. He has not had any recent fever or chills. No cough. No unusual shortness of breath. Denies any orthopnea or PND. He is on long-term oral anticoagulation with Coumadin. Has not had any recent bleeding complications. Has not had any recent echocardiograms, since 2011. He is known to have atherosclerotic heart disease, high blood pressure, type 2 diabetes, peripheral arterial disease and dyslipidemia. Review of Systems Narrative: CONSTITUTIONAL: No fever or chills. EYES: No blurring of vision or other visual disturbances lately. ENT: No hoarseness of voice, auditory disturbances or sore throat. CARDIOVASCULAR: As mentioned above. RESPIRATORY: No significant cough. GASTROINTESTINAL: No hematemesis or melena. GENITOURINARY: No dysuria or hematuria. INTEGUMENTARY: No skin rashes or history of skin cancer. NEURO: No transient ischemic attacks or amaurosis. PSYCHIATRIC: No history of psychosis or major depression. HEMATOLOGIC: Patient on long-term oral anticoagulation ENDOCRINE: History of type 2 diabetes MUSCULOSKELETAL: No recent joint pain or swelling. ALLERGY/IMMUNOLOGY: As mentioned above. Medications/Allergies Home Medications Medication Instructions Recorded Confirmed Last Taken Type blood sugar diagnostic (Accu-Chek #50 ea 03/13/21 07/12/22 Unknown Rx Julianna Plus test strp) enalapril maleate 5 mg tablet 5 mg PO BID #180 tabs 12/11/21 07/12/22 07/12/22 08:00 Rx nitroglycerin 0.4 mg/hr 1 patch transdermal Q24H #30 ea 12/11/21 07/12/22 07/11/22 Rx transdermal 24 hour patch (Nitro-Dur) aspirin 81 mg tablet,delayed 81 mg PO QAM 07/12/22 07/12/22 07/12/22 08:00 History release cholecalciferol (vitamin D3) 1,250 50,000 unit PO Q30D 07/12/22 07/12/22 History mcg (50,000 unit) capsule cyanocobalamin (vitamin B-12) 1,000 mcg PO DAILY 07/12/22 07/12/22 07/11/22 History 1,000 mcg tablet (Vitamin B-12) ferrous sulfate 325 mg (65 mg 325 mg PO DAILY 07/12/22 07/12/22 07/11/22 History iron) tablet (iron) folic acid 1 mg tablet 1 mg PO QAM 07/12/22 07/12/22 07/12/22 08:00 History magnesium oxide 400 mg PO DAILY 07/12/22 07/12/22 07/11/22 History metformin 500 mg tablet,extended 500 mg PO QAM 07/12/22 07/12/22 07/12/22 08:00 History release 24 hr metoprolol succinate 100 mg 100 mg PO QAM 07/12/22 07/12/22 07/12/22 History tablet,extended release 24 hr (Toprol XL) potassium gluconate 595 mg (99 mg) 595 mg PO DAILY 07/12/22 07/12/22 07/11/22 History tablet rosuvastatin 10 mg tablet (Crestor) 10 mg PO QAM 07/12/22 07/12/22 07/12/22 History warfarin 5 mg tablet See Rx Instructions .Route .COMPLEX 07/12/22 07/12/22 Unknown History warfarin 6 mg tablet 6 mg PO .ON AND Sat07/12/22 07/12/22 07/12/22 History Allergies Allergy/AdvReac Type Severity Reaction Status Date / Time venlafaxine [From Effexor] Allergy hypertensio Verified 07/12/22 14:12 n PFSH Acute PFSH: Medical History (Updated 07/13/22 @ 13:21 by Juni Linda MD) Anxiety disorder, unspecified Atrial fibrillation, chronic CAD (coronary artery disease) Chronic anticoagulation Controlled diabetes mellitus Dementia Essential (primary) hypertension Iron deficiency LBBB (left bundle branch block) Mixed hyperlipidemia Neuropathic peripheral nerve Ventricular tachycardia Vitamin D deficiency Surgical History History of appendectomy 1979 Hx of CABG in 1991 Family History Mother Diabetes Dementia Grandmother Heart disease Paternal Social History Smoking and tobacco status: former smoker Second hand smoke exposure: No Smoking risk assessment/counseling performed?: No Alcohol intake: never Desire information about alcohol rehabilitation?: No Counseling given: No Desire information about substance/drug rehabilitation?: No Counseling given: No Adopted: No Caregiver/support person: No Lives independently: Yes Household members: spouse Housing: House Marital status: service: No Current occupational status: retired History of recent travel: No Current gender identity: Male Vitals/I&O/Wt Last Vital Signs Pulse 82 07/12/22 15:30 Resp 14 07/12/22 15:30 BP 146/100 07/12/22 15:30 Pulse Ox 96 07/12/22 15:30 O2 Del Method 07/12/22 15:30 O2 Flow Rate 4 07/12/22 14:00 Weight last 48 hrs Weight 230 lb Physical Exam Narrative: GENERAL: The patient is alert and oriented times three. Not in any acute distress. HEENT: No significant pallor, icterus or lymphadenopathy.Oral cavity: There are no mucous membrane lesions. NECK: Trachea appears to be central. No masses noted. No JVD or thyromegaly appreciated. RESPIRATORY: Chest is symmetrical. No intercostals muscle retraction or any ac cessory muscle activation. There is no chest wall tenderness. Breath sounds are heard bilaterally. No rales or rhonchi heard. No evidence of any consolidation. BREASTS: Deferred. HEART: The first heart sound is variable. Second heart rate is normal. No S3 or S4. Short systolic murmur in the left sternal border. No diastolic murmurs. No pericardial rub ABDOMEN: No vessel pulsations or distention. No tenderness. No organomegaly appreciated. Bowel sounds are normally heard. : Deferred. RECTAL: Deferred. LYMPHATIC: No lymphadenopathy noted in the neck. EXTREMITIES: No edema or cyanosis. No clubbing. Peripheral pulses are very weak on both sides MUSCULOSKELETAL: No acute joint deformities or swelling SKIN: There are no significant rashes or ecchymosis NEUROPSYCHIATRIC: The patient is alert and oriented x3. He is very tremulous. Not in any acute distress. Data : 07/13/22 03:35 07/13/22 03:35 Micro: Laboratory Last Values WBC 7.7 10^3/uL (4.0-10.0) 07/12/22 12:39 RBC 4.74 10^6/uL (4.1-5.3) 07/12/22 12:39 Hgb 14.6 g/dL (11.7-16.6) 07/12/22 12:39 Hct 44.8 % (42.0-52.0) 07/12/22 12:39 MCV 94.5 fl (80-94) H 07/12/22 12:39 MCH 30.8 pg (28.0-34.0) 07/12/22 12:39 MCHC 32.6 g/dL (30.0-36.0) 07/12/22 12:39 RDW 13.6 % (12.1-15.1) 07/12/22 12:39 Plt Count 144 10^3/cmm (130-400) 07/12/22 12:39 MPV 9.3 fL (7.4-10.4) 07/12/22 12:39 Neut % (Auto) 79.2 % 07/12/22 12:39 Lymph % (Auto) 11.1 % 07/12/22 12:39 [place] % (Auto) 6.4 % 07/12/22 12:39 Eos % (Auto) 1.4 % 07/12/22 12:39 Baso % (Auto) 0.5 % 07/12/22 12:39 Neut # (Auto) 6.05 10^3/uL (1.8-7.7) 07/12/22 12:39 Lymph # (Auto) 0.9 10^3/uL (0.8-4.8) 07/12/22 12:39 [place] # (Auto) 0.5 10^3/uL (0.2-0.9) 07/12/22 12:39 Eos # (Auto) 0.1 10^3/uL (0.0-0.8) 07/12/22 12:39 Baso # (Auto) 0.0 10^3/uL (0.0-0.1) 07/12/22 12:39 Nucleated RBC % (auto) 0 % 07/12/22 12:39 Nucleated RBCs # 0.0 /100WBC 07/12/22 12:39 PT 24.10 SECONDS (12.1-14.9) H 07/12/22 12:39 INR 2.12 (0.8-1.2) H 07/12/22 12:39 APTT 28.2 SECONDS (23.9-36.7) 07/12/22 12:39 Sodium 139 mmol/L (136-145) 07/12/22 12:39 Potassium 5.1 mmol/L (3.5-5.1) 07/12/22 12:39 Chloride 103 mmol/L (98-107) 07/12/22 12:39 Carbon Dioxide 24 mmol/L (22-29) 07/12/22 12:39 Anion Gap 17.1 (5-19) 07/12/22 12:39 BUN 11 mg/dL (8-23) 07/12/22 12:39 Creatinine 0.9 mg/dL (0.7-1.2) 07/12/22 12:39 GFR Calculation 83.4 mL/min (90-130) L 07/12/22 12:39 Glucose 227 mg/dL (65-115) H 07/12/22 12:39 Calculated Osmolality 295 mOsm/kg (285-295) 07/12/22 12:39 Calcium 8.9 mg/dL (8.5-10.5) 07/12/22 12:39 Phosphorus 3.7 mg/dL (2.5-4.5) 07/12/22 12:39 Magnesium 1.8 mg/dL (1.7-2.3) 07/12/22 12:39 Iron 110 ug/dL (59-158) 07/12/22 12:39 TIBC 229 mcg/dl 07/12/22 12:39 % Saturation 48.0 % (20-50) 07/12/22 12:39 Unsat Iron Binding 119 ug/dL (112-347) 07/12/22 12:39 Total Bilirubin 0.8 mg/dL (0.15-1.2) 07/12/22 12:39 AST 24 U/L (0-40) 07/12/22 12:39 ALT 17 U/L (0-41) 07/12/22 12:39 Alkaline Phosphatase 56 IU/L (40-130) 07/12/22 12:39 Troponin T Baseline 11 ng/L (0-15) 07/12/22 12:39 Troponin T 120 Minute 20.58 ng/L (0-15) H 07/12/22 14:37 Delta Troponin T 9.58 ABS# (0-10) 07/12/22 14:37 NT-Pro-B Natriuret Pep 2199 pg/mL (0-125) H 07/12/22 12:39 Total Protein 6.7 g/dL (6.6-8.7) 07/12/22 12:39 Albumin 4.1 g/dL (3.5-5.2) 07/12/22 12:39 Globulin 2.6 g/dL (1.3-4.6) 07/12/22 12:39 TSH 3.15 uIU/mL (0.27-4.20) 07/12/22 12:39 Will EKG 1: My Interpretation: Wide-complex tachycardia with right bundle branch block morphology and left anterior fascicular block. EKG computer-generated impression: Chest X-Ray 07/12/22 12:41 IMPRESSION: No acute chest abnormality. EKG 2: My Interpretation: Fibrillation with a controlled ventricular response rate of 91 bpm. Features of old inferior wall myocardial infarction. QRS duration 128 ms. Nonspecific IVCD. EKG computer-generated impression: Chest X-Ray 07/12/22 12:41 IMPRESSION: No acute chest abnormality. A&P Assessment and plan (1) Wide-complex tachycardia: The EKG features are consistent with ventricular tachycardia with a right bundle branch block and left anterior fascicular block-suggesting fascicular tachycardia. Patient apparently is highly symptomatic. He has a underlying structural heart disease with an LV ejection fraction of around 40%, 10 years ago. Status post electrical cardioversion, currently back in the atrial f ibrillation with a controlled ventricular response rate. Status: Acute (2) Atherosclerosis of coronary artery of [place] heart without angina pectoris: Patient is currently stable. Denies any chest pain. He has a chronically occluded right coronary artery and coronary artery bypass graft. The most recent a Myocardial perfusion imaging from 2012 revealing fixed defect in the distribution of the right coronary artery. May need to repeat Myocardial perfusion imaging Status: Acute (3) Cardiomyopathy, ischemic: His LV ejection fraction was 40% by echocardiogram in 2012. This needs to be repeated. Status: Acute (4) Essential (primary) hypertension: Patient was hypotensive with the tachyarrhythmia. Currently the blood pressure is soft stage II Status: Chronic (5) Mixed hyperlipidemia: Patient is on dietary modification? Status: Chronic (6) Chronic atrial fibrillation: He is on long-term oral anticoagulation. The ventricular response rate is under control. Status: Acute (7) T2DM (type 2 diabetes mellitus): The blood sugar is elevated. Status: Acute (8) Peripheral arterial disease: Patient is currently asymptomatic. Status: Acute Plan In view of his structural heart disease, I may start him on IV amiodarone. May be kept on the other current medications for the time being. Do an echocardiogram, to reevaluate LV ejection fraction. I will hold off on the Coumadin for the time being. Start him on Lovenox in the morning. Patient may require a INSURANCE INVESTIGATOR-D and possible ablation later on. I will be discussing his arrhythmia management with an superintendent refuse disposal, specifically about the role of ablation. Based on the clinical progress, further recommendations will be made Thank for the opportunity to eval this patient and make these recommendations. Coding Level of Care Code Acute Boat And Plant Utility Supervisor for [place] History Detailed Exam Detailed Medical Decision Making High Complexity Diagnoses Wide-complex tachycardia I47.2 Atherosclerosis of coronary artery of [place] heart without angina pectoris I25.10 Cardiomyopathy, ischemic I25.5 Essential (primary) hypertension I10 Mixed hyperlipidemia E78.2 Chronic atrial fibrillation I48.20 T2DM (type 2 diabetes mellitus) E11.9 Peripheral arterial disease I73.9
[2022-07-12] MEDS: perflutren protein-a microsphr 0.22 mg/mL SDV 3 mL IV (16:26)
[2022-07-12 16:42] LABS: Vitamin B12 > 2000 pg/mL (232-1245)
--- NOTE | 2022-07-12 16:53 | PC.NURSE ---
DR. BOOTH GAVE VERBAL ORDER TO HOLD ENOXAPARIN 100MG
--- NOTE | 2022-07-12 17:21 | PC.NURSE ---
Arrived from ED, AO x4, no c/o
[2022-07-12] MEDS: docusate sodium 100 mg Capsule PO (18:21)
[2022-07-12] MEDS: famotidine 20 mg/2 mL INJ IVP (18:21)
--- NOTE | 2022-07-12 18:41 | ECG_ITS ---
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 Measurements Intervals [place] Rate: 91 P: TX: QRS: 29 QRSD: 128 T: -22 QT: 368 QTc: 454 Interpretive Statements ATRIAL FIBRILLATION WITH ABERRANT CONDUCTION OR VENTRICULAR PREMATURE COMPLEXES INFERIOR MYOCARDIAL INFARCTION , OF INDETERMINATE AGE [40+ ms Q WAVE AND/OR ST/T ABNORMALITY IN II/aVF] Compared to ECG 07/12/2022 14:25:07 No significant changes Electronically Signed On 07-13-2022 7:07:22 CDT by Yarelis Negron M.D. [id number]
[2022-07-12 19:22] LABS: Amphetamines Screen Urine Negative (Negative); Barbiturates Screen Urine Negative (Negative); Benzodiazepines Screen Urine Negative (Negative); Blood Urine 2+ (Negative); Cocaine Screen Urine Negative (Negative); Ketones Urine Negative (Negative); Nitrate Urine Negative (Negative); Opiate Screen Urine Negative (Negative); PCP Screen Urine Negative (Negative); Protein Urine Trace (Negative); Specific Gravity, Urine 1.015 (1.005-1.030); THC Screen Urine Negative (Negative); Urine Appearance Clear (CLEAR); Urine Color Yellow (Yellow); pH Urine 6.5 (5-7)
[2022-07-12 19:23] LABS: Add Urine Culture? No; Add Urine Microscopic? YES; Bilirubin Urine Neg (Negative); Glucose Urine UA Trace (Normal); Hyaline Casts Urine 0-4 /lpf; Leukocyte Esterase Urine Trace (Negative); RBC Urine 0-4 /hpf (0-2); Squamous Epithelial Cell Urine 0-4 /hpf (0-5); Urobilinogen Urine Norm (Negative)
[2022-07-12 19:30] LABS: Folate Level > 20.0 ng/mL (4.5-32.2)
[2022-07-12 19:31] LABS: Potassium, Radom Urine 91 mmol/L; Urine Random Chloride 134 mmol/L; Urine Random Sodium 121 mmol/L
[2022-07-13] VITALS (63 sets, daily range): BP systolic 118–163; BP diastolic 69–112; PULSE 75–127; RESP 7–39; O2SAT 93–98
--- NOTE | 2022-07-13 | ECG_ITS ---
[facility] Test Date: 2022-07-13 Pat Name: Justyn Pedroza Department: Room: ICU02 Gender: Male [employer]: : 1950 Requested By: Juni Linda Order Number: [id number] Rustam MD: Jose Franklin M.D. Interpretive Statements NAME OF STUDY: LEXISCAN SESTAMIBI STRESS TEST INDICATION: Unstable angina PROCEDURE: At the baseline, the EKG revealed atrial fibrillation with a controlled ventricular response rate of 96 bpm. Nonspecific IVCD. Possible old inferior wall TX.. The baseline blood pressure was 140/74 mm Hg with a heart rate of 96 beats/min. Lexiscan was infused over a period of 20 seconds. A total of 0.4 milligrams of Lexiscan was infused. The stress phase was continued for a total of 5 minutes. Heart rate at the end of the stress phase was 97 with a blood pressure 149/66. The EKG at the peak infusion revealed no significant changes. Sestamibi was injected 20 seconds after the Lexiscan infusion. Blood pressure at the end of the recovery phase was 150/70 with a heart rate of 98 per minute. CONCLUSION: 1. No significant EKG changes with the LexiScan infusion 2. No LexiScan induced chest pain or cardiac arrhythmia 3. Normal blood pressure and heart rate response 4. Sestamibi/sestamibi perfusion scan pending; see separate report. Electronically Signed On 07-20-2022 15:37:30 CDT by Jose Franklin M.D. [id number]
[2022-07-13] MEDS: famotidine 20 mg/2 mL INJ IVP (04:26)
[2022-07-13 04:37] LABS: Basophils # 0.1 10^3/uL (0.0-0.1); Basophils % 0.5 %; Eosinophils # 0.2 10^3/uL (0.0-0.8); Eosinophils % 2.1 %; Hematocrit 44.4 % (42.0-52.0); Hemoglobin 14.2 g/dL (11.7-16.6); Lymphocytes # 1.2 10^3/uL (0.8-4.8); Mean Corpuscular Hemoglobin 31.2 pg (28.0-34.0); Mean Corpuscular Volume 97.6 fl (80-94); Mean Platelet Volume 9.7 fL (7.4-10.4); Monocytes # 0.6 10^3/uL (0.2-0.9); Monocytes % 6.5 %; Neutrophils # 7.22 10^3/uL (1.8-7.7); Neutrophils % 77.3 %; Nucleated Red Blood Cells % 0 %; Platelet Count 146 10^3/cmm (130-400); Red Blood Count 4.55 10^6/uL (4.1-5.3); White Blood Count 9.4 10^3/uL (4.0-10.0)
[2022-07-13 04:54] LABS: Alanine Aminotransferase 15 U/L (0-41); Albumin Level 3.6 g/dL (3.5-5.2); Alkaline Phosphatase 50 IU/L (40-130); Aspartate Amino Transferase 23 U/L (0-40); Blood Urea Nitrogen 13 mg/dL (8-23); Calcium 8.8 mg/dL (8.5-10.5); Carbon Dioxide 22 mmol/L (22-29); Chloride 103 mmol/L (98-107); Chol HDL Ratio 2.63 mg/dL (1.0-5.00); Cholesterol 113 mg/dL (0-200); Globulin 2.6 g/dL (1.3-4.6); Glomerular Filtration Rate 111.5 mL/min (90-130); Glucose 124 mg/dL (65-115); HDL Cholesterol 43 mg/dL (60-100); LDL Cholesterol Calculated 56 mg/dL (50-129); Magnesium 1.9 mg/dL (1.7-2.3); Osmolality Calculated 286 mOsm/kg (285-295); Phosphorus 3.2 mg/dL (2.5-4.5); Sodium 137 mmol/L (136-145); Total Protein 6.2 g/dL (6.6-8.7); Triglycerides 71 mg/dL (0-150); VLDL Cholestrol Calculation 14 mg/dL (0-30)
--- NOTE | 2022-07-13 05:24 | PC.NURSE ---
Dr. Howard notified of continuous pt behavior throughout shift of removing monitor wires, becoming agitated, and demanding to leave. Order recieved for klonipin 0.25mg PRN for agitation.
[2022-07-13 05:39] LABS: Estmated Average Glucose 146; Hemoglobin A1C 6.7 % (4.0-6.0)
[2022-07-13] MEDS: CLONazepam 0.5 mg Tablet 0.25 MG PO (05:47)
[2022-07-13 06:03] LABS: INR 2.25 (0.8-1.2)
[2022-07-13] MEDS: atorvastatin 40 mg Tablet PO (06:57)
[2022-07-13] MEDS: folic acid 1 mg Tablet PO (06:58)
[2022-07-13] MEDS: aspirin 81 mg EC Tablet PO (06:59)
--- NOTE | 2022-07-13 07:23 | PC.NURSE ---
Patient to stress test at this time
[2022-07-13] MEDS: regadenoson 0.4 Mg/5 ml Syringe IVP (08:44)
[2022-07-13] MEDS: docusate sodium 100 mg Capsule PO (09:41)
[2022-07-13] MEDS: ALPRAZolam 0.5 mg Tablet PO (09:41)
[2022-07-13] MEDS: ferrous sulfate EC 325 mg Tablet PO (09:41)
[2022-07-13] MEDS: amiodarone 200 mg Tablet PO ×2 (09:41→13:12)
--- NOTE | 2022-07-13 10:17 | PC.CHAP ---
Pastoral Care Encounter/Spiritual Assessment Type of Contact [] Declined passenger service agent visit [] Patient/Family/Request visit [] Outpatient visit [] Follow-up visit [] Physician referral [] Code/Alert [x] Routine visit [] Staff referral [] Actively dying [] Patient sleeping [] Family support [] [] Out of room [] Palliative care [] [x] Receiving care in room [] Pre-surgical visit [] Trauma [] Long length of stay [x] ICU visit [] Other: Relational/Emotional Strength [] Patient feels connected with others/family/visitors/staff [] Distress [] Loneliness/isolation [] Abandonment Spirituality of Patient [] Person of Nicole [] Attends Restorationism of their Nicole [] Believes in Prayer [] Reads Bible or Jainism materials [] There are Spiritual issues to be addressed Hospitality Job Titles Interventions [x] Prayer [x] Active listening [x] Non-anxious presence [x] Spiritual/emotional support [] Crisis/trauma care [] Spiritual counseling [] Bereavement support [] Provided bereavement packet [] Provided Bible/devotional materials [] Provided toy/stuffed animal, coloring book to patient or family member [] Provided Communion [] Anointing/[place] [] Salvation [x] Completed spiritual assessment [] Other: Impact on Illness or Injury [] Angry [x] Fearful [] Anxious [] Often cries [] Exhaustion [] Unable to work [] Unable to attend episcopal [] Unable to walk/stand [] Unable to read [] Unable to drive [] Unable to eat/drink [] Unable to sleep [] Unable to be with family [] Patient intubated [] Other: Summary still experiencing chest pains... nurse gave medication..PT calmed down and began to relax......Hospitality Job Titles will return in a couple hours to check on him Time spent with patient
--- NOTE | 2022-07-13 10:36 | PC.NURSE ---
C/O of chest pain and diaphoretic, no ST changes noted, VS WNL, symptoms resolved shortly after ordered xamaliax, Dr. Linda ordered Troponin series
--- NOTE | 2022-07-13 11:03 | PC.NURSE ---
patient has pulled out iv for 5th time, increasingly confused, getting up out of bed, reorients only briefly then forgets again. Dr. Linda to come to bedside
--- NOTE | 2022-07-13 11:37 | PC.NURSE ---
Dr. kumar gave v.o. for IM zofran 4mg now, hold prn xanax and klonipin
[2022-07-13 12:12] LABS: Troponin(5th) Baseline 28 ng/L (0-15)
--- NOTE | 2022-07-13 12:40 | ECG_ITS ---
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 Measurements Intervals [place] Rate: 96 P: CA: QRS: 43 QRSD: 128 T: 37 QT: 399 QTc: 505 Interpretive Statements ATRIAL FIBRILLATION PROBABLE LATERAL MYOCARDIAL INFARCTION , PROBABLY OLD [35 ms Q WAVE IN I/aVL/V5/V6] INFERIOR MYOCARDIAL INFARCTION , PROBABLY OLD [40+ ms Q WAVE AND/OR ST/T ABNORMALITY IN II/aVF] Compared to ECG 07/12/2022 20:14:39 Ventricular premature complex(es) no longer present Aberrant conduction of supraventricular beat(s) no longer present Myocardial infarct finding still present The extremities normal Paulie in the Who Normal on home normal Electronically Signed On 07-13-2022 18:35:40 CDT by Jose Franklin M.D. [id number]
--- NOTE | 2022-07-13 13:10 | PM.DCS ---
Discharge Providers Date of Admission: 07/13/22 08:46 Date of Discharge: July 13, 2022 Attending Provider at Admission: Juni Linda MD Attending Provider at Discharge: Juni Linda MD Consults: Cardiology: Dr. Franklin Primary Care Provider: ANTONIETTA Boggs Diagnoses at Discharge Discharge Diagnosis (1) Wide-complex tachycardia: Status: Acute (2) Atherosclerosis of coronary artery of tangirnaq heart without angina pectoris: Status: Acute (3) Cardiomyopathy, ischemic: Status: Acute (4) Essential (primary) hypertension: Status: Chronic (5) Mixed hyperlipidemia: Status: Chronic (6) Chronic atrial fibrillation: Status: Acute (7) T2DM (type 2 diabetes mellitus): Status: Acute (8) Peripheral arterial disease: Status: Acute Reason for Visit Reason for Visit: CHEST PAIN Hospital Course Hospital Course Justyn Pedroza is a 72 year old male, with a history of ischemia cardiomyopathy, chronic atrial fibrillation, he is presenting with complaints of sudden onset of generalized weakness, jitteriness and a near syncopal episode.? He was apparently in the grocery store while this was happening.? Because of the symptoms, an ambulance was called in.? He was found to be in wide-complex tachycardia at that time.? IV adenosine x2 was ineffective.? He was found to be becoming hypotensive.? At that time, he got cardioverted by EMS.? His rhythm returned to atrial fibrillation with a controlled ventricular response rate.? He denies any chest pain or chest tightness.? Still has some feeling of generalized weakness.? He has some baseline shortness of breath with activities.? No other specific complaints.? Cardiology consult is requested for further cardiac evaluation recommendations. Mr. Pedroza has a history of atherosclerotic heart disease and had a myocardial infarction in 1990. In 1991, he had a single vessel bypass surgery at [facility] in [place]. Apparently, he occluded the bypass graft subsequently. 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 The patient had? myocardial perfusion imaging since then which revealed persistent perfusion defect in the distribution of the right coronary artery. Most recently on 08/07/2012, he had a myocardial perfusion imaging. At that time, he also was found to have fixed defect in the distribution of the right coronary artery. His left ventricle was found to be dilated with an ejection fraction around 40%. He also had features of right ventricular hypertrophy, at that time. This patient apparently has been in his baseline state of health up until this morning when he had this event.? He has not had any recent fever or chills.? No cough.? No unusual shortness of breath.? Denies any orthopnea or PND.? He is on long-term oral anticoagulation with Coumadin.? Has not had any recent bleeding complications.? Has not had any recent echocardiograms, since 2012. He is known to have atherosclerotic heart disease, high blood pressure, type 2 diabetes, peripheral arterial disease and dyslipidemia. Patient admitted to hospital further evaluation and management. There is a concern for ventricular tachycardia secondary to new ischemia versus scar VT. He was started on amiodarone drip which were later transitioned over to oral amiodarone. Cardiology was consulted and patient underwent Lexiscan stress test on 07/13. Stress test showed myocardial scarring in distribution of RCA, LCx with very small area of eva-infarct ischemia around the apex and inferior lateral regions. He underwent echocardiogram which showed an EF of 40% with diffuse hypokinesia of LV along with dilatation, biatrial enlargement. Patient's hospitalization was complicated by him developing confusion secondary to worsening of his dementia. Care plan was discussed in detail with patient and patient's family. Patient needs to be on oral amiodarone along with LifeVest while PUBLIC HEALTH TECHNICIAN-D is arranged for him as an outpatient at a facility diuretic can be done. Patient was agreeable for LifeVest and wants to follow-up as an outpatient for PUBLIC HEALTH TECHNICIAN-D. He has been discharged home medically stable condition on oral amiodarone, his dose of enalapril has been increased. He is to continue taking his home dose metoprolol and warfarin. Physical Exam Narrative: EXAM NARRATIVE: General: No acute distress, AO x3, anxious, occasional episodes of confusion HEENT: PERRLA, pupils bilaterally equal and reactive Chest: Bilateral normal vesicular breath sounds, occasional rhonchi present all over the lung [place] CVS: S1-S2 regular with frequent VPCs, soft pansystolic murmur at apex, no tachycardia, no gallops, no rubs Abdomen: Soft, nontender, no organomegaly, bowel sounds present, morbidly obese Neuro: No focal deficits, no facial deformity, AO x3, power 5/5 in all limbs Discharge Data Studies Completed and Pending Completed Studies During Hospitalization Category Date Time Status Sestamibi Stress Test Request Stat Exams 07/13/22 07:11 Draft XR chest 1V portable [id number] Stat Exams 07/12/22 12:41 Completed NM seema perf SPECT r/s* [id number] Routine Nuc Med 07/13/22 15:07 Completed CV. echo complete* [id number] Routine Ultrasound 07/12/22 15:04 Completed Pending at discharge Category Date Time Status Sestamibi Stress Test Request Stat Exams 07/12/22 15:04 Stop Req Complete Blood Count w/Auto AM LABS Lab 07/14/22 04:00 Ordered Comprehensive Metabolic Panel AM LABS Lab 07/14/22 04:00 Ordered Troponin(5th) 2 Hour. Timed Lab 07/13/22 12:57 Received Troponin(5th) 6 hour. Timed Lab 07/13/22 17:30 Ordered Radiology Impressions Chest X-Ray 07/12/22 12:41 IMPRESSION: No acute chest abnormality. Lexiscan stress test: PERFUSION FINDINGS ?Moderate to large area of severely decreased tracer uptake in the basal, mid?and apical inferior; basal and mid inferolateral, apical lateral and LV apex.? ?Subtle areas of reversibility was noted in the apical and mid inferolateral?segments.? As very small area of reversible defect was noted in the mid ?inferoseptal region. ?FUNCTIONAL RESULTS ? ? (calculated via Gated SPECT) ? Stress Image LV EF (%):? ? 26 ? Stress EDV (mL):179? TID:? 1.03 ? Stress ESV (mL):132 ?FUNCTIONAL FINDINGS: ?Segmental wall motion analysis revealed a severe diffuse hypokinesia of the LV?apex, inferior wall and septum.? Mild diffuse hypokinesia of the anterior wall. ?IMPRESSIONS ?1.? Myocardial perfusion imaging revealing moderate to large area of severely?decreases uptake in the inferior, inferolateral and apical regions with a ?subtle areas of reversibility, suggesting myocardial scarring in the?distribution of the right coronary artery and left circumflex artery with very?small areas of eva-infarction ischemia around the apex and inferolateral?regions. ?2.? Diminished LV ejection fraction of 26%. ?3.? Multiple wall motion normalities as mentioned above. ?4.? Moderately dilated LV cavity, with an end-systolic volume of 132 ml. ?No similar previous studies are available for comparison ?Dr Jose Franklin MD [facility] ?(Electronically Signed) ?Final Date:? ? ? 13 July 2022 ? 09:22 Echocardiogram: ?CONCLUSIONS ?Mildly dilated LV cavity with a diminished ejection fraction of?30%.? ?Diffuse hypokinesia of the left ventricle.? No filling defects?are noted. (Echo contrast was used for endocardial delineation?and LV function analysis) ?Mildly increased right atrial size. ?Moderately increased left atrial size. ?Thickened mitral valve. Mild mitral annular calcification. Mild?mitral valve regurgitation. ?Thickened aortic valve. ?Thickened tricuspid valve. ?There is no pericardial effusion. ?Dr Jose Franklin MD [facility] ?(Electronically Signed) ?Final Date:? ? ? 12 July 2022 ? 22:47 S Laboratory Results WBC 9.4 10^3/uL (4.0-10.0) 07/13/22 03:35 RBC 4.55 10^6/uL (4.1-5.3) 07/13/22 03:35 Hgb 14.2 g/dL (11.7-16.6) 07/13/22 03:35 Hct 44.4 % (42.0-52.0) 07/13/22 03:35 MCV 97.6 fl (80-94) H 07/13/22 03:35 MCH 31.2 pg (28.0-34.0) 07/13/22 03:35 MCHC 32.0 g/dL (30.0-36.0) 07/13/22 03:35 RDW 14.0 % (12.1-15.1) 07/13/22 03:35 Plt Count 146 10^3/cmm (130-400) 07/13/22 03:35 MPV 9.7 fL (7.4-10.4) 07/13/22 03:35 Neut % (Auto) 77.3 % 07/13/22 03:35 Lymph % (Auto) 13.0 % 07/13/22 03:35 Kimble % (Auto) 6.5 % 07/13/22 03:35 Eos % (Auto) 2.1 % 07/13/22 03:35 Baso % (Auto) 0.5 % 07/13/22 03:35 Neut # (Auto) 7.22 10^3/uL (1.8-7.7) 07/13/22 03:35 Lymph # (Auto) 1.2 10^3/uL (0.8-4.8) 07/13/22 03:35 Kimble # (Auto) 0.6 10^3/uL (0.2-0.9) 07/13/22 03:35 Eos # (Auto) 0.2 10^3/uL (0.0-0.8) 07/13/22 03:35 Baso # (Auto) 0.1 10^3/uL (0.0-0.1) 07/13/22 03:35 Nucleated RBC % (auto) 0 % 07/13/22 03:35 Nucleated RBCs # 0.0 /100WBC 07/13/22 03:35 PT 25.20 SECONDS (12.1-14.9) H 07/13/22 03:35 INR 2.25 (0.8-1.2) H 07/13/22 03:35 APTT 28.2 SECONDS (23.9-36.7) 07/12/22 12:39 Sodium 137 mmol/L (136-145) 07/13/22 03:35 Potassium 4.0 mmol/L (3.5-5.1) 07/13/22 03:35 Chloride 103 mmol/L (98-107) 07/13/22 03:35 Carbon Dioxide 22 mmol/L (22-29) 07/13/22 03:35 Anion Gap 16.0 (5-19) 07/13/22 03:35 BUN 13 mg/dL (8-23) 07/13/22 03:35 Creatinine 0.7 mg/dL (0.7-1.2) 07/13/22 03:35 GFR Calculation 111.5 mL/min (90-130) 07/13/22 03:35 Glucose 124 mg/dL (65-115) H 07/13/22 03:35 Estimat Average Glucose 146 07/13/22 03:35 Hemoglobin A1c 6.7 % (4.0-6.0) H 07/13/22 03:35 Calculated Osmolality 286 mOsm/kg (285-295) 07/13/22 03:35 Calcium 8.8 mg/dL (8.5-10.5) 07/13/22 03:35 Phosphorus 3.2 mg/dL (2.5-4.5) 07/13/22 03:35 Magnesium 1.9 mg/dL (1.7-2.3) 07/13/22 03:35 Iron 110 ug/dL (59-158) 07/12/22 12:39 TIBC 229 mcg/dl 07/12/22 12:39 % Saturation 48.0 % (20-50) 07/12/22 12:39 Unsat Iron Binding 119 ug/dL (112-347) 07/12/22 12:39 Total Bilirubin 1.0 mg/dL (0.15-1.2) 07/13/22 03:35 AST 23 U/L (0-40) 07/13/22 03:35 ALT 15 U/L (0-41) 07/13/22 03:35 Alkaline Phosphatase 50 IU/L (40-130) 07/13/22 03:35 Troponin T Baseline 28 ng/L (0-15) H 07/13/22 11:28 Troponin T 120 Minute 20.58 ng/L (0-15) H 07/12/22 14:37 Delta Troponin T 9.58 ABS# (0-10) 07/12/22 14:37 Troponin T Hi Sens 6Hr 30.50 ng/L (0-15) H 07/12/22 18:32 Troponin T Hi Sens 6Hr Delta 19.50 ng/L (0-12) H* 07/12/22 18:32 NT-Pro-B Natriuret Pep 2199 pg/mL (0-125) H 07/12/22 12:39 Total Protein 6.2 g/dL (6.6-8.7) L 07/13/22 03:35 Albumin 3.6 g/dL (3.5-5.2) 07/13/22 03:35 Globulin 2.6 g/dL (1.3-4.6) 07/13/22 03:35 Triglycerides 71 mg/dL (0-150) 07/13/22 03:35 Cholesterol 113 mg/dL (0-200) 07/13/22 03:35 LDL Cholesterol, Calc 56 mg/dL (50-129) 07/13/22 03:35 Total VLDL Cholesterol 14 mg/dL (0-30) 07/13/22 03:35 HDL Cholesterol 43 mg/dL (60-100) L 07/13/22 03:35 Cholesterol/HDL Ratio 2.63 mg/dL (1.0-5.00) 07/13/22 03:35 Vitamin B12 > 2000 pg/mL (232-1245) H 07/12/22 12:39 Folate > 20.0 ng/mL (4.5-32.2) 07/12/22 18:32 TSH 3.15 uIU/mL (0.27-4.20) 07/12/22 12:39 Urine Color Yellow (Yellow) 07/12/22 19:00 Urine Appearance Clear (CLEAR) 07/12/22 19:00 Urine pH 6.5 (5-7) 07/12/22 19:00 Ur Specific [place] 1.015 (1.005-1.030) 07/12/22 19:00 Urine Protein Trace (Negative) 07/12/22 19:00 Urine Glucose (UA) Trace (Normal) H 07/12/22 19:00 Urine Ketones Negative (Negative) 07/12/22 19:00 Urine Blood 2+ (Negative) H 07/12/22 19:00 Urine Nitrate Negative (Negative) 07/12/22 19:00 Urine Bilirubin Neg (Negative) 07/12/22 19:00 Urine Urobilinogen Norm mg/dL (Negative) 07/12/22 19:00 Ur Leukocyte Esterase Trace (Negative) H 07/12/22 19:00 Urine RBC 0-4 /hpf (0-2) H 07/12/22 19:00 Urine WBC 5-10 /hpf (0-5) H 07/12/22 19:00 Ur Squamous Epith Cells 0-4 /hpf (0-5) H 07/12/22 19:00 Amorphous Sediment Not Reportable 07/12/22 19:00 Urine Bacteria None /hpf (NONE) 07/12/22 19:00 Hyaline Casts 0-4 /lpf H 07/12/22 19:00 Ur Random Sodium 121 mmol/L 07/12/22 19:00 Ur Random Potassium 91 mmol/L 07/12/22 19:00 Ur Random Chloride 134 mmol/L 07/12/22 19:00 Urine Opiates Screen Negative ng/mL (Negative) 07/12/22 19:00 Ur Barbiturates Screen Negative ng/mL (Negative) 07/12/22 19:00 Ur Phencyclidine Scrn Negative ng/mL (Negative) 07/12/22 19:00 Ur Amphetamines Screen Negative ng/mL (Negative) 07/12/22 19:00 U Benzodiazepines Scrn Negative ng/mL (Negative) 07/12/22 19:00 Urine Cocaine Screen Negative ng/mL (Negative) 07/12/22 19:00 U Marijuana (THC) Screen Negative ng/mL (Negative) 07/12/22 19:00 Vitals Last Vital Signs Pulse 93 07/13/22 10:00 Resp 31 H 07/13/22 10:00 BP 163/112 07/13/22 10:00 Pulse Ox 93 07/13/22 10:00 O2 Del Method 07/12/22 20:27 O2 Flow Rate 4 07/12/22 14:00 Discharge Plan Discharge Patient Disposition: Home Condition: Stable Prescriptions: New amiodarone 200 mg tablet See Taper PO DAILY Qty: 90 0RF Taper: amiodarone 400bid to 200daily 400 mg Twice A Day for 10 Days and 0 Hour 200 mg Twice A Day for 10 Days and 0 Hour 200 mg Daily for 30 Days and 0 Hour Rx Instructions: Take 400 mg morning and evening for next 10 days followed by 200 mg morning and evening for 10 days, after that take 200 mg daily. Continued nitroglycerin [Nitro-Dur] 0.4 mg/hr patch 24 hour 1 patch TRANSDERMA Q24H Qty: 30 6RF Rx Instructions: allow nitrate-free interval of approx. 10-12 hrs per 24-hour period (DME) Accu-Chek Julianna Plus test strp Strip See Rx Instructions .ROUTE .MEDSUPPLY Qty: 50 5RF Rx Instructions: 1 strip daily Aspir-81 81 mg Tablet,Delayed Release (Dr/Ec) 81 mg PO QAM Toprol XL 100 mg tablet extended release 24 hr 100 mg PO QAM folic acid 1 mg tablet 1 mg PO QAM Rx Instructions: getting over the counter metformin 500 mg tablet extended release 24 hr 500 mg PO QAM Crestor 10 mg tablet 10 mg PO QAM cholecalciferol (vitamin D3) 1,250 mcg (50,000 unit) capsule 50,000 unit PO Q30D warfarin 6 mg Tablet 6 mg PO .ON TH AND FRI Rx Instructions: 6MG PO ON TH AND FRI AND 5MG ON SUN,MON,,WED,SAT warfarin 5 mg Tablet See Rx Instructions .ROUTE .COMPLEX Rx Instructions: 5MG PO DAILY ON SUN,MON,,SAT,SAT AND 6MG PO DAILY ON THURS AND FRI Vitamin B-12 1,000 mcg Tablet 1,000 mcg PO DAILY iron 325 mg (65 mg iron) Tablet 325 mg PO DAILY potassium gluconate 595 mg (99 mg) Tablet 595 mg PO DAILY magnesium oxide 400 mg magnesium Tablet 400 mg PO DAILY Changed enalapril maleate 5 mg tablet 10 mg PO BID Qty: 180 4RF Discharge Orders: Discharge Order (Routine); Ordered 07/13/22 Ordered By: Juni Linda Other Ambulatory Orders: DME: Life Vest (Order) Timeframe: 1 Day Location: None Selected Ordered By: Juni Linda Referrals: Hao Jeffries FNP-C [Primary Care Provider] - 7-10 days Jsoe Franklin MD [Physician] - 1 month Sakina Calhoun FNP [Nurse Practitioner] - 4-7 days Discharge Diet: Cardiac Discharge Activity: Resume usual activity and Increase activity as tolerated Patient Instructions: Opioid Safety Activity Restrictions/Additional Instructions: Please take amiodarone 400 mg 2 tablets morning and evening for next 10 days followed by 200 mg tablets 1 tablet morning and evening for 10 days afterwards. Following that take 20 mg daily. Continue taking your Coumadin/warfarin as before. The dose of enalapril has been increased to 10 mg twice daily. Please make sure you are wearing LifeVest. Please follow-up with cardiology/[facility] Care Services on set appointment. They will let you know about PUBLIC HEALTH TECHNICIAN-D appointment as an outpatient. Discharge Attestations Time Spent in Discharge Care*: greater than 30 min Specific Discharge Activities: educating patient, educating and/or supporting family/caregiver, discussing with pcp/other providers, discussing with cyanide case hardener/social workers/dc planners, documenting/other paperwork and evaluating patient/reviewing data Status at Discharge: Cognitive status at discharge: mildly impaired cognition, Behavioral status at discharge: cooperative and can be uncooperative, Functional status at discharge: independent ambulation, Overall status at discharge: patient is back to baseline Quality Metrics Clinical Quality Measures [ No reported AMI, CVA or VTE this stay] Coding Level of Care Code Acute Chg FW DC note Diagnoses Wide-complex tachycardia I47.2 Atherosclerosis of coronary artery of tangirnaq heart without angina pectoris I25.10 Cardiomyopathy, ischemic I25.5 Essential (primary) hypertension I10 Mixed hyperlipidemia E78.2 Chronic atrial fibrillation I48.20 T2DM (type 2 diabetes mellitus) E11.9 Peripheral arterial disease I73.9
--- NOTE | 2022-07-13 13:14 | PC.NURSE ---
Patient refusing to wear telemetry, Dr. Linda and Dr. Franklin spoke with patient and family, patient decided to go home with life vest. Dr. Franklin to order
--- NOTE | 2022-07-13 13:41 | P.PN_ITS ---
Subjective Subjective: Patient had a Myocardial perfusion imaging today. He was found to have very small areas of reversible defect in the apical and inferoseptal regions. The patient has been very confused and agitated through the night. He was pulling out the IVs and is wanting to go home. The episodes of confusion seems to be waxing and waning. 1 time he complained about chest pain and was found to be sweating. Medications: Medication Review Details: Current Medications Acetaminophen (Acetaminophen 325 Mg Tablet) 650 mg PO Q6H PRN PRN Reason: Mild/Mod Pain Or Temp >/= 101 Alprazolam (Alprazolam 0.5 Mg Tablet) 0.5 mg PO TID [facility] Last Admin: 07/13/22 09:41 Dose: 0.5 mg Aminophylline (Aminophylline 25 Mg/Ml Sdv 10 Ml) 25 mg IVP Q2M PRN PRN Reason: see dose instructions Stop: 07/14/22 07:11 Amiodarone HCl (Amiodarone 200 Mg Tablet) 200 mg PO BID [facility] Last Admin: 07/13/22 09:41 Dose: 200 mg Aspirin (Aspirin 81 Mg Ec Tablet) 81 mg PO QAM [facility] Last Admin: 07/13/22 06:59 Dose: 81 mg Atorvastatin Calcium (Atorvastatin 40 Mg Tablet) 40 mg PO QAM [facility] Last Admin: 07/13/22 06:57 Dose: 40 mg Calcium Carbonate (Calcium Carbonate 500 Mg Chew Tablet) 1,000 mg PO Q4H PRN PRN Reason: DYSPEPSI Clonazepam (Clonazepam 0.5 Mg Tablet) 0.25 mg PO TID PRN PRN Reason: ANXIETY Last Admin: 07/13/22 05:47 Dose: 0.25 mg Docusate Sodium (Docusate Sodium 100 Mg Capsule) 100 mg PO BID [facility] Last Admin: 07/13/22 09:41 Dose: 100 mg Enalapril Maleate (Enalapril 10 Mg Tablet) 10 mg PO BID [facility] Last Admin: 07/13/22 10:07 Dose: 10 mg Enoxaparin Sodium (Enoxaparin 100 Mg/Ml Syringe) 100 mg 1 mg/kg (100 mg) SUBCUT Q12H [facility] Last Admin: 07/13/22 04:23 Dose: Not Given Famotidine (Famotidine 20 Mg/2 Ml Inj) 20 mg IVP Q12H [facility] Last Admin: 07/13/22 04:26 Dose: 20 mg Ferrous Sulfate (Ferrous Sulfate Ec 325 Mg Tablet) 325 mg PO DAILY [facility] Last Admin: 07/13/22 09:41 Dose: 325 mg Folic Acid (Folic Acid 1 Mg Tablet) [address] [facility] Last Admin: 07/13/22 06:58 Dose: 1 mg Amiodarone HCl 900 mg/Dextrose/ IV Miscellaneous Supplies 518 mls @ 0 mls/hr IV .Q0M [facility]; Protocol Last Titration: 07/13/22 05:09 Dose: 0 mg/min, 0 mls/hr Metoprolol Succinate (Metoprolol Succinate Er (24 Hr) 100 Mg Tablet) [address] [facility] Last Admin: 07/13/22 06:55 Dose: Not Given Morphine Sulfate (Morphine 4 Mg/Ml Sdv 1 Ml) 1 mg IVP Q4H PRN PRN Reason: SEVERE PAIN Nitroglycerin (Nitroglycerin 0.4 Mg Sublingual Tablet) 0.4 mg SUBLINGUAL Q5M PRN PRN Reason: CHEST PAIN Stop: 07/14/22 07:11 Ondansetron HCl (Ondansetron 2 Mg/Ml Sdv 2 Ml) 4 mg IVP Q8H PRN PRN Reason: vomiting, or N/V if npo Ondansetron HCl (Ondansetron 2 Mg/Ml Sdv 2 Ml) 4 mg IVP Q2M PRN PRN Reason: NAUSEA Vitals/I&O/Wt Last Vital Signs Pulse 93 07/13/22 10:00 Resp 31 H 07/13/22 10:00 BP 163/112 07/13/22 10:00 Pulse Ox 93 07/13/22 10:00 O2 Del Method 07/12/22 20:27 O2 Flow Rate 4 07/12/22 14:00 07/12/22 07/13/22 07/13/22 22:59 06:59 14:59 Intake Total 50 / 50 227.044 / 277.044 Output Total 50 / 50 100 / 100 Balance 0 / 0 227.044 / 227.044 -100 / -100 Weight last 48 hrs Weight 230 lb Physical Exam Narrative: GENERAL: The patient is alert and confused. Telemetry shows atrial fibrillation with a controlled ventricular response rate. HEENT: No significant pallor, icterus or lymphadenopathy.Oral cavity: There are no mucous membrane lesions. NECK: Trachea appears to be central. No masses noted. No JVD or thyromegaly appreciated. RESPIRATORY: Chest is symmetrical. No intercostals muscle retraction or any accessory muscle activation. There is no chest wall tenderness. Breath sounds are heard bilaterally. No rales or rhonchi heard. No evidence of any consolidation. BREASTS: Deferred. HEART: The first heart sound is variable. Second heart rate is normal. No S3 or S4. Short systolic murmur in the left sternal border. No diastolic murmurs. No pericardial rub ABDOMEN: No vessel pulsations or distention. No tenderness. No organomegaly appreciated. Bowel sounds are normally heard. : Deferred. RECTAL: Deferred. LYMPHATIC: No lymphadenopathy noted in the neck. EXTREMITIES: No edema or cyanosis. No clubbing. Peripheral pulses are very weak on both sides MUSCULOSKELETAL: No acute joint deformities or swelling SKIN: There are no significant rashes or ecchymosis NEUROPSYCHIATRIC: The patient is alert and oriented x3. He is very tremulous. Not in any acute distress. Data : 07/13/22 03:35 07/13/22 03:35 Other Labs: Laboratory Last Values WBC 9.4 10^3/uL (4.0-10.0) 07/13/22 03:35 RBC 4.55 10^6/uL (4.1-5.3) 07/13/22 03:35 Hgb 14.2 g/dL (11.7-16.6) 07/13/22 03:35 Hct 44.4 % (42.0-52.0) 07/13/22 03:35 MCV 97.6 fl (80-94) H 07/13/22 03:35 MCH 31.2 pg (28.0-34.0) 07/13/22 03:35 MCHC 32.0 g/dL (30.0-36.0) 07/13/22 03:35 RDW 14.0 % (12.1-15.1) 07/13/22 03:35 Plt Count 146 10^3/cmm (130-400) 07/13/22 03:35 MPV 9.7 fL (7.4-10.4) 07/13/22 03:35 Neut % (Auto) 77.3 % 07/13/22 03:35 Lymph % (Auto) 13.0 % 07/13/22 03:35 [place] % (Auto) 6.5 % 07/13/22 03:35 Eos % (Auto) 2.1 % 07/13/22 03:35 Baso % (Auto) 0.5 % 07/13/22 03:35 Neut # (Auto) 7.22 10^3/uL (1.8-7.7) 07/13/22 03:35 Lymph # (Auto) 1.2 10^3/uL (0.8-4.8) 07/13/22 03:35 [place] # (Auto) 0.6 10^3/uL (0.2-0.9) 07/13/22 03:35 Eos # (Auto) 0.2 10^3/uL (0.0-0.8) 07/13/22 03:35 Baso # (Auto) 0.1 10^3/uL (0.0-0.1) 07/13/22 03:35 Nucleated RBC % (auto) 0 % 07/13/22 03:35 Nucleated RBCs # 0.0 /100WBC 07/13/22 03:35 PT 25.20 SECONDS (12.1-14.9) H 07/13/22 03:35 INR 2.25 (0.8-1.2) H 07/13/22 03:35 APTT 28.2 SECONDS (23.9-36.7) 07/12/22 12:39 Sodium 137 mmol/L (136-145) 07/13/22 03:35 Potassium 4.0 mmol/L (3.5-5.1) 07/13/22 03:35 Chloride 103 mmol/L (98-107) 07/13/22 03:35 Carbon Dioxide 22 mmol/L (22-29) 07/13/22 03:35 Anion Gap 16.0 (5-19) 07/13/22 03:35 BUN 13 mg/dL (8-23) 07/13/22 03:35 Creatinine 0.7 mg/dL (0.7-1.2) 07/13/22 03:35 GFR Calculation 111.5 mL/min (90-130) 07/13/22 03:35 Glucose 124 mg/dL (65-115) H 07/13/22 03:35 Estimat Average Glucose 146 07/13/22 03:35 Hemoglobin A1c 6.7 % (4.0-6.0) H 07/13/22 03:35 Calculated Osmolality 286 mOsm/kg (285-295) 07/13/22 03:35 Calcium 8.8 mg/dL (8.5-10.5) 07/13/22 03:35 Phosphorus 3.2 mg/dL (2.5-4.5) 07/13/22 03:35 Magnesium 1.9 mg/dL (1.7-2.3) 07/13/22 03:35 Iron 110 ug/dL (59-158) 07/12/22 12:39 TIBC 229 mcg/dl 07/12/22 12:39 % Saturation 48.0 % (20-50) 07/12/22 12:39 Unsat Iron Binding 119 ug/dL (112-347) 07/12/22 12:39 Total Bilirubin 1.0 mg/dL (0.15-1.2) 07/13/22 03:35 AST 23 U/L (0-40) 07/13/22 03:35 ALT 15 U/L (0-41) 07/13/22 03:35 Alkaline Phosphatase 50 IU/L (40-130) 07/13/22 03:35 Troponin T Baseline 28 ng/L (0-15) H 07/13/22 11:28 Troponin T 120 Minute 20.58 ng/L (0-15) H 07/12/22 14:37 Delta Troponin T 9.58 ABS# (0-10) 07/12/22 14:37 Troponin T Hi Sens 6Hr 30.50 ng/L (0-15) H 07/12/22 18:32 Troponin T Hi Sens 6Hr Delta 19.50 ng/L (0-12) H* 07/12/22 18:32 NT-Pro-B Natriuret Pep 2199 pg/mL (0-125) H 07/12/22 12:39 Total Protein 6.2 g/dL (6.6-8.7) L 07/13/22 03:35 Albumin 3.6 g/dL (3.5-5.2) 07/13/22 03:35 Globulin 2.6 g/dL (1.3-4.6) 07/13/22 03:35 Triglycerides 71 mg/dL (0-150) 07/13/22 03:35 Cholesterol 113 mg/dL (0-200) 07/13/22 03:35 LDL Cholesterol, Calc 56 mg/dL (50-129) 07/13/22 03:35 Total VLDL Cholesterol 14 mg/dL (0-30) 07/13/22 03:35 HDL Cholesterol 43 mg/dL (60-100) L 07/13/22 03:35 Cholesterol/HDL Ratio 2.63 mg/dL (1.0-5.00) 07/13/22 03:35 Vitamin B12 > 2000 pg/mL (232-1245) H 07/12/22 12:39 Folate > 20.0 ng/mL (4.5-32.2) 07/12/22 18:32 TSH 3.15 uIU/mL (0.27-4.20) 07/12/22 12:39 Urine Color Yellow (Yellow) 07/12/22 19:00 Urine Appearance Clear (CLEAR) 07/12/22 19:00 Urine pH 6.5 (5-7) 07/12/22 19:00 Ur Specific [place] 1.015 (1.005-1.030) 07/12/22 19:00 Urine Protein Trace (Negative) 07/12/22 19:00 Urine Glucose (UA) Trace (Normal) H 07/12/22 19:00 Urine Ketones Negative (Negative) 07/12/22 19:00 Urine Blood 2+ (Negative) H 07/12/22 19:00 Urine Nitrate Negative (Negative) 07/12/22 19:00 Urine Bilirubin Neg (Negative) 07/12/22 19:00 Urine Urobilinogen Norm mg/dL (Negative) 07/12/22 19:00 Ur Leukocyte Esterase Trace (Negative) H 07/12/22 19:00 Urine RBC 0-4 /hpf (0-2) H 07/12/22 19:00 Urine WBC 5-10 /hpf (0-5) H 07/12/22 19:00 Ur Squamous Epith Cells 0-4 /hpf (0-5) H 07/12/22 19:00 Amorphous Sediment Not Reportable 07/12/22 19:00 Urine Bacteria None /hpf (NONE) 07/12/22 19:00 Hyaline Casts 0-4 /lpf H 07/12/22 19:00 Ur Random Sodium 121 mmol/L 07/12/22 19:00 Ur Random Potassium 91 mmol/L 07/12/22 19:00 Ur Random Chloride 134 mmol/L 07/12/22 19:00 Urine Opiates Screen Negative ng/mL (Negative) 07/12/22 19:00 Ur Barbiturates Screen Negative ng/mL (Negative) 07/12/22 19:00 Ur Phencyclidine Scrn Negative ng/mL (Negative) 07/12/22 19:00 Ur Amphetamines Screen Negative ng/mL (Negative) 07/12/22 19:00 U Benzodiazepines Scrn Negative ng/mL (Negative) 07/12/22 19:00 Urine Cocaine Screen Negative ng/mL (Negative) 07/12/22 19:00 U Marijuana (THC) Screen Negative ng/mL (Negative) 07/12/22 19:00 Myocardial perfusion imaging: My impression: ?1.? Myocardial perfusion imaging revealing moderate to large area of severely ?decreases uptake in the inferior, inferolateral and apical regions with a ?subtle areas of reversibility, suggesting myocardial scarring in the ?distribution of the right coronary artery and left circumflex artery with very ?small areas of eva-infarction ischemia around the apex and inferolateral ?regions. ?2.? Diminished LV ejection fraction of 26%. ?3.? Multiple wall motion normalities as mentioned above. ?4.? Moderately dilated LV cavity, with an end-systolic volume of 132 ml. ?No similar previous studies are available for comparison A&P Assessment and plan (1) Wide-complex tachycardia: The EKG features are consistent with ventricular tachycardia with a right bundle branch block and left anterior fascicular block-suggesting fascicular tachycardia. Patient apparently is highly symptomatic. He has a underlying structural heart disease with an LV ejection fraction of around 40%, 10 years ago. Status post electrical cardioversion, currently back in the atrial fibrillation with a controlled ventricular response rate. He seems to be tolerating the amiodarone so far well. Status: Acute (2) Atherosclerosis of coronary artery of lime heart without angina pectoris: The Myocardial perfusion imaging results from today was discussed with the family in detail. Because of the worsening of the LV systolic function and atypical chest pains and new onset of ventricular tachycardia, it may be appropriate to do a cardiac catheterization to evaluate the coronary arteries and decide on further management. The patient is not willing to go for the angiogram at this time. He wants to go home. He might consider this later . Status: Acute (3) Cardiomyopathy, ischemic: The repeat echocardiogram from yesterday revealed ejection fraction around 30%. Patient would benefit from a PLANT SAFETY LEADER-D in view of the prolonged QRS complex and ventricular tachycardia.. Since the patient is wanting to wait for a while, discussed about LifeVest. Patient is willing to wear the LifeVest. Since he is not wanting to wait in the hospital for this, we will make arrangements to have it done at home. Status: Acute (4) Essential (primary) hypertension: Patient was hypotensive with the tachyarrhythmia. Currently the blood pressure is soft stage II. The antihypertensive medications needs to be optimized. Status: Chronic (5) Mixed hyperlipidemia: Patient is on dietary modification? Status: Chronic (6) Chronic atrial fibrillation: He is on long-term oral anticoagulation. The ventricular response rate is under control. Status: Acute (7) T2DM (type 2 diabetes mellitus): The blood sugar is elevated. Status: Acute (8) Peripheral arterial disease: Patient is currently asymptomatic. Status: Acute Plan He is a patient desires to go home, he may be discharged home on amiodarone 400 mg p.o. twice daily for 10 days followed by 400 mg p.o. daily. Need to be seen by the nurse practitioner at the [facility] in [address] Almendarez at the [facility] in [facility] is willing to take him for the PLANT SAFETY LEADER-D placement. However the family is concerned about his insurance acceptance in [place]. If his insurance is not accepted in [place], I will make arrangements for him to be [facility] Medical Necessity Statement*: Disposition as per the primary Coding Level of Care Code Acute [facility] for [facility] Fwd History Detailed Exam Detailed Medical Decision Making High Complexity Diagnoses Wide-complex tachycardia I47.2 Atherosclerosis of coronary artery of lime heart without angina pectoris I25.10 Cardiomyopathy, ischemic I25.5 Essential (primary) hypertension I10 Mixed hyperlipidemia E78.2 Chronic atrial fibrillation I48.20 T2DM (type 2 diabetes mellitus) E11.9 Peripheral arterial disease I73.9
--- NOTE | 2022-07-13 15:07 | NMCV_ITS ---
NM seema perf SPECT r/s* [id number] Justyn Pedroza Age: 72 Gender: M : 1950 Exam Date: 07/13/2022 07:03 Ordering Phys: Juni Linda MD Technologist: YING Manuel Exam Location: [facility] Indications: CHEST PAIN STRESS TEST Please [facility] IMAGE PROTOCOL Rest/Stress 1 Lexiscan Day Radiopharmaceutical Dose (mCi) Administration Site Administered by Rest: Tc-99m 10.9 IV Tim Corona, YING Sestamibi Stress:Tc-99m 32.9 IV YING Potts Sestamibi Rest: 13-Jul-2022 60 Discovery 630 Stress: 13-Jul-2022 30 Discovery 630 0.4mg Lexiscan. Supine position only as patient was unable to lay prone. SPECT RESULTS Technical Quality: Excellent Raw Data Analysis: Normal Image Corrections: No attenuation or motion correction applied Summed Stress Score: 22 Summed Rest Score: 20 Summed Difference Score: 4 PERFUSION FINDINGS Moderate to large area of severely decreased tracer uptake in the basal, mid and apical inferior; basal and mid inferolateral, apical lateral and LV apex. Subtle areas of reversibility was noted in the apical and mid inferolateral segments. As very small area of reversible defect was noted in the mid inferoseptal region FUNCTIONAL RESULTS (calculated via Gated SPECT) Stress Image LV EF (%): 26 Stress EDV (mL):179 TID: 1.03 Stress ESV (mL):132 FUNCTIONAL FINDINGS: Segmental wall motion analysis revealed a severe diffuse hypokinesia of the LV apex, inferior wall and septum. Mild diffuse hypokinesia of the anterior wall. IMPRESSIONS 1. Myocardial perfusion imaging revealing moderate to large area of severely decreases uptake in the inferior, inferolateral and apical regions with a subtle areas of reversibility, suggesting myocardial scarring in the distribution of the right coronary artery and left circumflex artery with very small areas of eva-infarction ischemia around the apex and inferolateral regions. 2. Diminished LV ejection fraction of 26%. 3. Multiple wall motion normalities as mentioned above. 4. Moderately dilated LV cavity, with an end-systolic volume of 132 ml. No similar previous studies are available for comparison Dr Jose Franklin MD FACC (Electronically Signed) Final Date: 13 July 2022 09:22 S
--- NOTE | 2022-07-13 16:40 | ECG_ITS ---
[facility] Test Date: 2022-07-13 Pat Name: Justyn Pedroza Department: Room: ICU02 Gender: Male Medical Scribe: : 1950 Requested By: Juni Linda Order Number: [id number] Rustam MD: Jose Franklin M.D. Measurements Intervals [place] Rate: 97 P: PA: QRS: 22 QRSD: 149 T: 29 QT: 392 QTc: 499 Interpretive Statements ATRIAL FIBRILLATION WITH ABERRANT CONDUCTION OR VENTRICULAR PREMATURE COMPLEXES INTRAVENTRICULAR CONDUCTION DELAY [130+ ms QRS DURATION] Compared to ECG 07/13/2022 13:09:57 Ventricular premature complex(es) now present Aberrant conduction of supraventricular beat(s) now present Intraventricular conduction delay now present Myocardial infarct finding no longer present Electronically Signed On 07-13-2022 18:37:38 CDT by Jose Franklin M.D. [id number]
--- NOTE | 2022-07-13 16:48 | PC.NURSE ---
Discharge Dr. Linda stated to d/c patient once life vest is set up. [facility] med surg set up life vest to be delivered home, patient signed d/c form, all instructions and appointments educated to patient and family. no questions or concerns expressed. patient signed d/c form, [facility] at this time transported by family
== END 2022-07-13 16:57 | disposition home or self-care (01) | DRG 310 ==
LOC: ER 14:14 → ICU 15:51
PROVIDERS: Admitting Provider Student in an Organized Health Care Education/Training Program; Emergency Provider Emergency Medicine; PCP Nurse Practitioner; Visit Provider Student in an Organized Health Care Education/Training Program
DX: I47.2 Ventricular tachycardia (principal); I10 Essential (primary) hypertension; I45.10 Unspecified right bundle-branch block; I48.20 Chronic atrial fibrillation, unspecified; I25.10 Atherosclerotic heart disease of native coronary artery without angina pectoris; Z95.1 Presence of aortocoronary bypass graft; I25.5 Ischemic cardiomyopathy; E11.42 Type 2 diabetes mellitus with diabetic polyneuropathy; F41.9 Anxiety disorder, unspecified; F03.90 Unspecified dementia, unspecified severity, without behavioral disturbance, psychotic disturbance, mood disturbance, and anxiety; E78.2 Mixed hyperlipidemia; Z87.891 Personal history of nicotine dependence; I25.2 Old myocardial infarction; Z79.82 Long term (current) use of aspirin; Z79.84 Long term (current) use of oral hypoglycemic drugs; Z79.01 Long term (current) use of anticoagulants
CPT/HCPCS: 36415; 71045; 78452; 80053; 80061; 80306; 81001; 82436; 82607; 82746; 83036; 83540; 83550; 83735; 83880; 84100; 84133; 84300; 84443; 84484; 85025; 85610; 85730; 93005; 93017; 93306; 94664; 96365; 96375; 99285; A9500; G0378; J0282; J1650; J2785; J3475; J3490; J7060; Q9956

== ENCOUNTER → 2022-07-18 09:52 | Outpatient (BNVA) | payer MEDICARE, SELFPAY | PROVIDERS: PCP Nurse Practitioner; Visit Provider Internal Medicine | DX: Z79.01 Long term (current) use of anticoagulants (principal) | CPT/HCPCS: 85610 ==

== ENCOUNTER → 2022-07-20 09:14 | Outpatient (BNVA) | payer MEDICARE, SELFPAY | PROVIDERS: PCP Nurse Practitioner; Visit Provider Nurse Practitioner Family | DX: I25.10 Atherosclerotic heart disease of native coronary artery without angina pectoris (principal); I48.20 Chronic atrial fibrillation, unspecified; I47.2 Ventricular tachycardia; Z95.1 Presence of aortocoronary bypass graft; I10 Essential (primary) hypertension; Z87.891 Personal history of nicotine dependence; Z79.01 Long term (current) use of anticoagulants | CPT/HCPCS: 93005; 99214 ==

== ENCOUNTER → 2022-07-25 09:06 | Outpatient (BNVA) | payer MEDICARE, SELFPAY | PROVIDERS: PCP Nurse Practitioner; Visit Provider Internal Medicine | DX: Z79.01 Long term (current) use of anticoagulants (principal) | CPT/HCPCS: 85610 ==

== ENCOUNTER → 2022-08-07 14:41 | Outpatient (BNVA) | payer MEDICARE, SELFPAY | PROVIDERS: PCP Nurse Practitioner Family; Visit Provider Internal Medicine | DX: I48.20 Chronic atrial fibrillation, unspecified (principal); I25.10 Atherosclerotic heart disease of native coronary artery without angina pectoris; R58 Hemorrhage, not elsewhere classified; I47.2 Ventricular tachycardia; E11.9 Type 2 diabetes mellitus without complications; I25.2 Old myocardial infarction | CPT/HCPCS: 85610; 99214 ==

== ENCOUNTER 2022-08-20 07:28 | Outpatient (CLI) | payer MEDICARE, SELFPAY ==
[2022-08-20] VITALS (23 sets, daily range): BP systolic 104–135; BP diastolic 65–96; PULSE 73–106; RESP 12–40; TEMP 37.7; O2SAT 98; BMI 30.8
--- NOTE | 2022-08-20 07:30 | XACV_ITS ---
Ht: 175 cm Wt: 95 kg BSA: 2.18 m2 Gender: Male : 1950 Any Known Allergies: Other Exam Priority: Routine Indication(s): - Abnormal stress perfusion study - Decreased LV systolic function - Tachycardia/V-tach Procedure(s): Procedure Description: Diagnostic procedure Procedure Description: Left Heart Catheterization Procedure Description: Coronary Angiography Diagnostic Cath Status: Elective Diagnostic Findings * Left main artery: Patent LAD: Patent Left circumflex artery: Patent RCA: Has proximal chronic total occlusion. PDA receives collaterals from left system SVG to RCA: Occluded.. * INDICATION: LV dysfunction/ abnormal stress test/ Ventricular tachycardia. * Coronary angiography shows right dominance. Conclusions 1. Left main artery: Patent LAD: Patent Left circumflex artery: Patent RCA: Has proximal chronic total occlusion. PDA receives collaterals from left system SVG to RCA: Occluded.. 2. Patient has prior CABG. Recommendations * Aggressive risk factor modification. * Guideline directed heart failure therapy. * Outpatient cardiology follow-up in 4 weeks. Interventional RX Recommendation: medical therapy and/or counseling Diagnostic RX Recommendation: medical therapy and/or counseling Pressures Phase:Rest AO : / ( 0 ) @ 10:52:00 AM 93 / 74 ( 83 ) @ 10:55:00 AM 92 / 70 ( 82 ) @ 10:56:00 AM 135 / 73 ( 97 ) @ 11:09:00 AM LV : 429 / 429 / 274 @ 11:06:00 AM 129 / -19 / -5 @ 11:06:00 AM 124 / -19 / -6 @ 11:07:00 AM 122 / -13 / -12 @ 11:07:00 AM 97 / 0 / 3 @ 11:08:00 AM 123 / -15 / 0 @ 11:08:00 AM 124 / -13 / 3 @ 11:08:00 AM 131 / -15 / -7 @ 11:08:00 AM 128 / -13 / 1 @ 11:08:00 AM 131 / -14 / -6 @ 11:09:00 AM 121 / -12 / 0 @ 11:09:00 AM 124 / -13 / 2 @ 11:09:00 AM 126 / -13 / -2 @ 11:09:00 AM 120 / -11 / 0 @ 11:09:00 AM 131 / -17 / -2 @ 11:09:00 AM Valves Phase:DefaultPhase AV : 0.0 @ 10:23:53 AM AV Mean Gradient: 0.0 @ 10:23:53 AM Clinical Evaluation EBL: 5mL-10mL Procedural Details Procedure Consent Obtained. Admit Source: Out Patient. Pre-Procedure Time Out. Identified patient by full name and date of as verbalized by the patient/guarantor. Does the consent match the physician's order: Yes. Accurate & Complete Informed Consent: Yes. Inpatient/Outpatient History & Physical on Chart: Yes. If H&P is completed, is and addenduem needed: No; If yes, is the addendum complete: N/A. Visualize and Verify Site with Patient/Guarantor: N/A. Relevant Radiology Images available: N/A. The risks, benefits, and alternatives of sedation and/or procedure were discussed by physician. The patient agrees to continue. Procedure started. [facility] Clinical Fraility Score: 4: Vulnerable. Wet Mix Operator Indications: LV Dysfunction and V TACH and abnormal stress test. Chest Pain Symptom Assessment: Atypical Angina. Cardiovascular Instability: No, stable. Correct patient, site and procedure confirmed by cath team. Current diagnosis: LV DYSFUNCTION, V TACH, ABNORMAL STRESS TEST. PERRLA. Strong, equal hand finish carpenter bilaterally. Lungs clear x 5 lobes. IV Site on Arrival: 20 gauge in the left anticubital. IV Fluids: 0.9% NaCl at KVO. 0 mL infused prior to slabber light. Pre Procedural Pulses: bilateral dorsalis pedis was 2+. Pre Procedural Pulses: bilateral posterior tibial was Doppled. Pre Procedural Pulses: bilateral radial was 3+. Oxygen started at 3liters/min via nasal canula. bilateral groins was prepped with chloroprep then draped in the usual sterile fashion. Physician notified. Baseline sample Acquired. HR: 94 BPM. Physician arrived. Family updated to MD prior to the start of the procedure. Physician scrubbed in. Immediate Pre-Procedure Time Out. Correct Patient: Yes; Correct Procedure: Yes; Correct Site: Yes; Correct Patient Position: Yes; Correct Supplies: Yes; Dried Flammable Prep: Yes; Blood Products Available: N/A;. Lidocaine 1% infiltrated to the right groin. Arterial access obtained with micropuncture set. A 5 nepalese JL4 catheter in over wire. Multiple views taken of left coronary artery. Catheter removed over the standard wire. A 5 nepalese JR4 catheter in over wire. Multiple views taken of right coronary artery. SVG to RCA occluded. Physician review of films. EDP Sample taken: LV 129/-20,-6; HR: 98 BPM; SpO2: 100%. EDP Sample taken: LV 429/429,274; HR: 78 BPM; SpO2: 100%. EDP Sample taken: LV 122/-14,-13; HR: 101 BPM; SpO2: 100%. EDP Sample taken: LV 124/-20,-7; HR: 106 BPM; SpO2: 100%. EDP Sample taken: LV 131/-16,-8; HR: 112 BPM; SpO2: 100%. EDP Sample taken: LV 131/-15,-7; HR: 88 BPM; SpO2: 100%. Pullback taken: LV 131/-18,-3; AO 135/73(97); Mean: 0mmHg, Peak to Peak: 0mmHg, SEP: 13sec/min; HR: 96 BPM; SpO2: 100%. Catheter removed over the wire. EDP manually caluclated at 8 mm/hg. Physician scrubbed out. A Manual Compression was successful obtaining hemostatsis at the Right Femoral artery insertion site. Sheath(s) removed and manual pressure held until hemostasis was achieved. Sterile 4x4 and Op-site applied to the puncture site. No oozing or hematoma noted. Post sheath removal instructions were given and the patient verbalized understanding. Post Procedure: Pulses reassessed and unchanged. PERRLA. Strong, equal hand finish carpenter bilaterally. No VTE prophylaxis required. MEDICATION WASTE: lido 1 ml, Heparin 1000 units, Versed 1 mg, Fentanyl 75 mcg. Total IV fluids: 43 mL. Fluoro: 3:06. Contrast type used: Omnipaque 300 mg/mL, 150 mL bottle. [id number]. Post-op diagnosis: Occluded SVG to RCA; LV dysfunction. Complications: None. Estimated blood loss: 5mL-10mL. Responsiveness - Normal response to verbal stimuli; alert and oriented, PERRLA. Airway - Unaffected, no intervention required; spontaneous ventilation. Circulation: W/N/L, pulses unchanged. Nausea/Vomiting: No. Procedure completed. Patient transferred by bed to [facility]. Access Site Site: Right Femoral artery Sheath Size: 6 Fr Hemostasis Method: Manual Compression Hemostasis Success: Successful Procedure Medications Start: 9:50 AM Stop: 9:50 AM Medication: Versed 1 mg and Fentanyl 25 mcg Amount: 1 Route: I.V. I, the attending physician, have reviewed and verified all procedure medications. Yes, all medications given per verbal order History/Risk Factors Hypertension: Yes Dyslipidemia: Yes Peripheral Arterial Disease (PAD): Yes Myocardial Infarction (OR): No Obesity: No Renal Disease: No Prior Interventions PCI: No CABG: Yes Valve Surgery: No Report Signatures Finalized by Ej Francis MD on 09/01/2022 10:41 PM
[2022-08-20 08:56] LABS: Basophils % 0.5 %; Eosinophils % 0.9 %; Hematocrit 41.5 % (42.0-52.0); Hemoglobin 14.2 g/dL (11.7-16.6); Lymphocytes # 0.6 10^3/uL (0.8-4.8); Lymphocytes % 13.7 %; Mean Corpuscular HGB Conc 34.2 g/dL (30.0-36.0); Mean Corpuscular Hemoglobin 31.4 pg (28.0-34.0); Mean Corpuscular Volume 91.8 fl (80-94); Mean Platelet Volume 9.7 fL (7.4-10.4); Monocytes # 0.4 10^3/uL (0.2-0.9); Monocytes % 8.1 %; Neutrophils # 3.21 10^3/uL (1.8-7.7); Neutrophils % 74.7 %; Nucleated Red Blood Cells % 0 %; Platelet Count 105 10^3/cmm (130-400); Red Blood Count 4.52 10^6/uL (4.1-5.3); Red Cell Distribution Width 13.9 % (12.1-15.1); White Blood Count 4.3 10^3/uL (4.0-10.0)
[2022-08-20 09:13] LABS: Anion Gap 12.1 (5-19); Blood Urea Nitrogen 12 mg/dL (8-23); Calcium 8.5 mg/dL (8.5-10.5); Carbon Dioxide 23 mmol/L (22-29); Chloride 95 mmol/L (98-107); Glomerular Filtration Rate 111.5 mL/min (90-130); Glucose 132 mg/dL (65-115); Osmolality Calculated 264 mOsm/kg (285-295); Potassium 4.1 mmol/L (3.5-5.1); Sodium 126 mmol/L (136-145)
--- NOTE | 2022-08-20 09:27 | W.PM.OPSUD ---
Surgery/Procedure H&P Update DATE OF PROCEDURE: August 20, 2022 DATE H&P PERFORMED: 08/07/22 H&P UPDATE INFORMATION: I have reviewed H&P completed within last 30 days, I have examined patient prior to procedure and No changes to prior documentation PREOP DIAGNOSIS: LV dysfunction/ abnormal stress test/ Ventricular tachycardia PRIMARY INDICATION FOR PROCEDURE: LV dysfunction/ abnormal stress test/ Ventricular tachycardia PLANNED PROCEDURE: Operation Date: 08/20/22 08:30 Proposed Procedures p [facility] 71030,I20.0(Not Applicable) - Ej Francis M.D Possible percutaneous coronary intervention PATIENT REASSESSED PRIOR TO SEDATION, WITH NO CHANGE NOTED: Yes PHYSICAL EXAM: alert, oriented x 3, clear to auscultation bilaterally and regular rate & rhythm AIRWAY EVAL/ANESTHESIA PLAN: ASA III, Local Anesthesia, Risks, benefits & alternatives of sedation and/or procedure discussed and Patient agrees to continue as planned ADDITIONAL INFORMATION: Moderate sedation
--- NOTE | 2022-08-20 17:41 | PC.NURSE ---
patient ambulated in [place] with stand by assistance and a walker patient able to ambulate 300ft with out sob or chest pain sheath site with out complications
--- NOTE | 2022-08-20 18:03 | PC.NURSE ---
Discharge Note Patient discharged to home via private vehicle accompanied by family. Discharge instructions reviewed with patient and/or new accounts banking representative. Mobile pharmacy medications and/or prescriptions provided. Belongings/home medications returned.
== END 2022-08-20 18:03 | disposition home or self-care (01) ==
LOC: CCL 07:41 → MEDSURG 11:10
PROVIDERS: PCP Nurse Practitioner Family; Visit Provider Internal Medicine
DX: I25.10 Atherosclerotic heart disease of native coronary artery without angina pectoris (principal); I25.82 Chronic total occlusion of coronary artery; I10 Essential (primary) hypertension; E78.5 Hyperlipidemia, unspecified; Z79.82 Long term (current) use of aspirin; Z95.1 Presence of aortocoronary bypass graft; I48.91 Unspecified atrial fibrillation; Z79.84 Long term (current) use of oral hypoglycemic drugs; F41.9 Anxiety disorder, unspecified; I48.20 Chronic atrial fibrillation, unspecified; Z79.01 Long term (current) use of anticoagulants; E11.9 Type 2 diabetes mellitus without complications; E78.2 Mixed hyperlipidemia; I47.2 Ventricular tachycardia; I25.5 Ischemic cardiomyopathy
CPT/HCPCS: 36415; 80048; 85025; 93459; 96360; 99152; 99153; C1769; C1887; C1894; J1644; J2250; J3010; J3490; J7030; Q0163; Q9967

== ENCOUNTER → 2022-08-28 09:33 | Outpatient (BNVA) | payer MEDICARE, SELFPAY | PROVIDERS: PCP Nurse Practitioner Family; Visit Provider Nurse Practitioner Family | DX: I25.5 Ischemic cardiomyopathy (principal); Z87.891 Personal history of nicotine dependence; I48.20 Chronic atrial fibrillation, unspecified | CPT/HCPCS: 36415; 80048; 85025; 85610; 99214 ==

== ENCOUNTER → 2022-09-10 17:10 | Outpatient (BNVA) | payer MEDICARE, SELFPAY | PROVIDERS: PCP Nurse Practitioner Family; Visit Provider Internal Medicine | DX: Z79.01 Long term (current) use of anticoagulants (principal) | CPT/HCPCS: 85610 ==

== ENCOUNTER → 2022-09-18 12:20 | Outpatient (BNVA) | payer MEDICARE, SELFPAY | PROVIDERS: PCP Nurse Practitioner Family; Visit Provider Internal Medicine | DX: I25.10 Atherosclerotic heart disease of native coronary artery without angina pectoris (principal); Z95.1 Presence of aortocoronary bypass graft; I47.20 Ventricular tachycardia, unspecified; E11.9 Type 2 diabetes mellitus without complications; Z79.84 Long term (current) use of oral hypoglycemic drugs; I25.5 Ischemic cardiomyopathy; I48.20 Chronic atrial fibrillation, unspecified; Z79.01 Long term (current) use of anticoagulants; Z79.82 Long term (current) use of aspirin; Z87.891 Personal history of nicotine dependence; I10 Essential (primary) hypertension | CPT/HCPCS: 85610; 99214 ==

== ENCOUNTER → 2022-10-02 10:49 | Outpatient (BNVA) | payer MEDICARE, SELFPAY | PROVIDERS: PCP Nurse Practitioner Family; Visit Provider Internal Medicine | DX: I48.20 Chronic atrial fibrillation, unspecified (principal); Z79.01 Long term (current) use of anticoagulants | CPT/HCPCS: 85610 ==

== ENCOUNTER → 2022-10-16 11:11 | Outpatient (BNVA) | payer MEDICARE, SELFPAY | PROVIDERS: PCP Nurse Practitioner Family; Visit Provider Internal Medicine | DX: Z79.01 Long term (current) use of anticoagulants (principal); I48.20 Chronic atrial fibrillation, unspecified | CPT/HCPCS: 85610 ==

== ENCOUNTER → 2022-10-22 14:45 | Outpatient (BNVA) | payer MEDICARE, SELFPAY | PROVIDERS: PCP Nurse Practitioner Family; Visit Provider Internal Medicine | DX: Z79.01 Long term (current) use of anticoagulants (principal) | CPT/HCPCS: 85610 ==

== ENCOUNTER → 2022-11-06 10:08 | Outpatient (BNVA) | payer MEDICARE, SELFPAY | PROVIDERS: PCP Nurse Practitioner Family; Visit Provider Internal Medicine | DX: Z79.01 Long term (current) use of anticoagulants (principal) | CPT/HCPCS: 85610 ==

== ENCOUNTER → 2022-11-09 11:22 | Outpatient (BNVA) | payer MEDICARE, SELFPAY | PROVIDERS: PCP Nurse Practitioner Family; Visit Provider Nurse Practitioner Family | DX: E11.9 Type 2 diabetes mellitus without complications (principal); F03.90 Unspecified dementia, unspecified severity, without behavioral disturbance, psychotic disturbance, mood disturbance, and anxiety; Z12.5 Encounter for screening for malignant neoplasm of prostate; R25.1 Tremor, unspecified; E55.9 Vitamin D deficiency, unspecified; I48.20 Chronic atrial fibrillation, unspecified; I10 Essential (primary) hypertension | CPT/HCPCS: 80053; 80061; 82043; 82306; 82607; 83036; 83735; 84443; 85025; G0103 ==

== ENCOUNTER → 2022-11-13 09:43 | Outpatient (BNVA) | payer MEDICARE, SELFPAY | PROVIDERS: PCP Nurse Practitioner Family; Visit Provider Internal Medicine | DX: Z79.01 Long term (current) use of anticoagulants (principal) | CPT/HCPCS: 85610 ==

== ENCOUNTER → 2022-11-27 10:03 | Outpatient (BNVA) | payer MEDICARE, SELFPAY | PROVIDERS: PCP Nurse Practitioner Family; Visit Provider Internal Medicine | DX: Z79.01 Long term (current) use of anticoagulants (principal) | CPT/HCPCS: 85610 ==

== ENCOUNTER → 2022-12-11 10:07 | Outpatient (BNVA) | payer MEDICARE, SELFPAY | PROVIDERS: PCP Nurse Practitioner Family; Visit Provider Internal Medicine | DX: I48.20 Chronic atrial fibrillation, unspecified (principal); Z79.01 Long term (current) use of anticoagulants | CPT/HCPCS: 85610 ==

== ENCOUNTER → 2023-01-08 08:48 | Outpatient (BNVA) | payer MEDICARE, SELFPAY | PROVIDERS: PCP Nurse Practitioner Family; Visit Provider Internal Medicine | DX: Z79.01 Long term (current) use of anticoagulants (principal) | CPT/HCPCS: 85610 ==

== ENCOUNTER → 2023-01-15 09:25 | Outpatient (BNVA) | payer MEDICARE, SELFPAY | PROVIDERS: PCP Nurse Practitioner Family; Visit Provider Internal Medicine | DX: Z79.01 Long term (current) use of anticoagulants (principal) | CPT/HCPCS: 85610 ==

== ENCOUNTER → 2023-01-22 09:37 | Outpatient (BNVA) | payer MEDICARE, SELFPAY | PROVIDERS: PCP Nurse Practitioner Family; Visit Provider Internal Medicine | DX: Z79.01 Long term (current) use of anticoagulants (principal) | CPT/HCPCS: 85610 ==

== ENCOUNTER → 2023-02-05 09:23 | Outpatient (BNVA) | payer MEDICARE, SELFPAY | PROVIDERS: PCP Nurse Practitioner Family; Visit Provider Internal Medicine | DX: Z79.01 Long term (current) use of anticoagulants (principal) | CPT/HCPCS: 85610 ==

== ENCOUNTER → 2023-02-08 09:10 | Outpatient (BNVA) | payer MEDICARE, SELFPAY | PROVIDERS: PCP Nurse Practitioner Family; Visit Provider Nurse Practitioner Family | DX: I25.10 Atherosclerotic heart disease of native coronary artery without angina pectoris (principal); I10 Essential (primary) hypertension; I73.9 Peripheral vascular disease, unspecified; I48.20 Chronic atrial fibrillation, unspecified; Z79.01 Long term (current) use of anticoagulants; Z87.891 Personal history of nicotine dependence; Z95.1 Presence of aortocoronary bypass graft; Z79.82 Long term (current) use of aspirin | CPT/HCPCS: 99214 ==

== ENCOUNTER → 2023-02-12 10:08 | Outpatient (BNVA) | payer MEDICARE, SELFPAY | PROVIDERS: PCP Nurse Practitioner Family; Visit Provider Internal Medicine | DX: Z79.01 Long term (current) use of anticoagulants (principal) | CPT/HCPCS: 85610 ==

== ENCOUNTER → 2023-02-20 10:51 | Outpatient (BNVA) | payer MEDICARE, SELFPAY | PROVIDERS: PCP Nurse Practitioner Family; Visit Provider Nurse Practitioner Family | DX: E11.9 Type 2 diabetes mellitus without complications (principal); E55.9 Vitamin D deficiency, unspecified; Z79.01 Long term (current) use of anticoagulants | CPT/HCPCS: 80053; 80061; 82306; 82607; 83036; 85025; 85610 ==

== ENCOUNTER → 2023-03-19 09:50 | Outpatient (BNVA) | payer MEDICARE, SELFPAY | PROVIDERS: PCP Nurse Practitioner Family; Visit Provider Internal Medicine | DX: Z79.01 Long term (current) use of anticoagulants (principal) | CPT/HCPCS: 85610 ==

== ENCOUNTER → 2023-03-26 09:48 | Outpatient (BNVA) | payer MEDICARE, SELFPAY | PROVIDERS: PCP Nurse Practitioner Family; Visit Provider Internal Medicine | DX: I48.20 Chronic atrial fibrillation, unspecified (principal); Z79.01 Long term (current) use of anticoagulants | CPT/HCPCS: 85610 ==

== ENCOUNTER → 2023-04-23 10:03 | Outpatient (BNVA) | payer MEDICARE, SELFPAY | PROVIDERS: PCP Nurse Practitioner Family; Visit Provider Internal Medicine | DX: Z79.01 Long term (current) use of anticoagulants (principal) | CPT/HCPCS: 85610 ==

== ENCOUNTER → 2023-05-21 10:02 | Outpatient (BNVA) | payer MEDICARE, SELFPAY | PROVIDERS: PCP Nurse Practitioner Family; Visit Provider Nurse Practitioner Family | DX: E11.9 Type 2 diabetes mellitus without complications (principal); Z79.01 Long term (current) use of anticoagulants; E55.9 Vitamin D deficiency, unspecified | CPT/HCPCS: 80053; 80061; 82306; 82607; 83036; 84443; 85025; 85610 ==

== ENCOUNTER → 2023-06-18 10:01 | Outpatient (BNVA) | payer MEDICARE, SELFPAY | PROVIDERS: PCP Nurse Practitioner Family; Visit Provider Internal Medicine | DX: I48.20 Chronic atrial fibrillation, unspecified (principal) | CPT/HCPCS: 85610 ==

== ENCOUNTER → 2023-06-25 14:19 | Outpatient (BNVA) | payer MEDICARE, SELFPAY | PROVIDERS: PCP Nurse Practitioner Family; Visit Provider Internal Medicine | DX: I48.20 Chronic atrial fibrillation, unspecified (principal) | CPT/HCPCS: 85610 ==

== ENCOUNTER → 2023-07-23 09:44 | Outpatient (BNVA) | payer MEDICARE, SELFPAY | PROVIDERS: PCP Nurse Practitioner Family; Visit Provider Internal Medicine | DX: Z51.81 Encounter for therapeutic drug level monitoring (principal); Z79.01 Long term (current) use of anticoagulants | CPT/HCPCS: 85610 ==

== ENCOUNTER → 2023-08-09 09:46 | Outpatient (BNVA) | payer MEDICARE, SELFPAY | PROVIDERS: PCP Nurse Practitioner Family; Visit Provider Internal Medicine | DX: I47.20 Ventricular tachycardia, unspecified (principal); I48.20 Chronic atrial fibrillation, unspecified; E11.9 Type 2 diabetes mellitus without complications; I25.10 Atherosclerotic heart disease of native coronary artery without angina pectoris; I25.5 Ischemic cardiomyopathy; I10 Essential (primary) hypertension; Z87.891 Personal history of nicotine dependence; Z79.84 Long term (current) use of oral hypoglycemic drugs; Z79.01 Long term (current) use of anticoagulants | CPT/HCPCS: 93225; 99214 ==

== ENCOUNTER → 2023-08-14 10:20 | Outpatient (BNVA) | payer MEDICARE, SELFPAY | PROVIDERS: PCP Nurse Practitioner Family; Visit Provider Nurse Practitioner Family | DX: E11.9 Type 2 diabetes mellitus without complications (principal); E55.9 Vitamin D deficiency, unspecified | CPT/HCPCS: 80053; 80061; 82306; 82607; 83036; 84443; 85025 ==

== ENCOUNTER → 2023-08-20 12:52 | Outpatient (BNVA) | payer MEDICARE, SELFPAY | PROVIDERS: PCP Nurse Practitioner Family; Visit Provider Internal Medicine | DX: Z79.01 Long term (current) use of anticoagulants (principal) | CPT/HCPCS: 85610 ==

== ENCOUNTER → 2023-09-17 12:25 | Outpatient (BNVA) | payer MEDICARE, SELFPAY | PROVIDERS: PCP Nurse Practitioner Family; Visit Provider Nurse Practitioner Family | DX: Z79.01 Long term (current) use of anticoagulants (principal) | CPT/HCPCS: 85610 ==

== ENCOUNTER → 2023-10-15 10:18 | Outpatient (BNVA) | payer MEDICARE, SELFPAY | PROVIDERS: PCP Nurse Practitioner Family; Visit Provider Internal Medicine | DX: Z79.01 Long term (current) use of anticoagulants (principal) | CPT/HCPCS: 85610 ==

== ENCOUNTER → 2023-11-12 11:16 | Outpatient (BNVA) | payer MEDICARE, SELFPAY | PROVIDERS: PCP Nurse Practitioner Family; Visit Provider Internal Medicine | DX: Z79.01 Long term (current) use of anticoagulants (principal) | CPT/HCPCS: 85610 ==

== ENCOUNTER → 2023-12-11 12:49 | Outpatient (BNVA) | payer MEDICARE, SELFPAY | PROVIDERS: PCP Nurse Practitioner Family; Visit Provider Internal Medicine | DX: Z79.01 Long term (current) use of anticoagulants (principal) | CPT/HCPCS: 85610 ==

== ENCOUNTER → 2024-01-08 11:47 | Outpatient (BNVA) | payer MEDICARE, SELFPAY | PROVIDERS: PCP Nurse Practitioner Family; Visit Provider Internal Medicine | DX: Z79.01 Long term (current) use of anticoagulants (principal) | CPT/HCPCS: 85610 ==

== ENCOUNTER → 2024-02-04 10:10 | Outpatient (BNVA) | payer MEDICARE, SELFPAY | PROVIDERS: PCP Nurse Practitioner Family; Visit Provider Internal Medicine | DX: Z79.01 Long term (current) use of anticoagulants (principal) | CPT/HCPCS: 85610 ==

== ENCOUNTER → 2024-02-06 10:46 | Outpatient (BNVA) | payer MEDICARE, SELFPAY | PROVIDERS: PCP Nurse Practitioner Family; Visit Provider Nurse Practitioner Family | DX: I48.20 Chronic atrial fibrillation, unspecified (principal); Z79.01 Long term (current) use of anticoagulants; Z79.82 Long term (current) use of aspirin; I10 Essential (primary) hypertension; I25.118 Atherosclerotic heart disease of native coronary artery with other forms of angina pectoris; Z87.891 Personal history of nicotine dependence | CPT/HCPCS: 99214 ==

== ENCOUNTER 2024-02-08 01:25 | Emergency (ER) | payer MEDICARE, MEDICAID, SELFPAY ==
[2024-02-08 01:25] VITALS: BP 144/81; PULSE 74; RESP 19; TEMP 36.6; O2SAT 99; BMI 26.6
--- NOTE | 2024-02-08 01:39 | ED_ITS ---
HPI - Chest Pain 2 General: Chief Complaint: Chest Pain Stated Complaint: CP Time Seen by Provider: 02/08/24 01:45 History of Present Illness: Patient presents to the ER from home by EMS with complaints of being woke up with 10 out of 10 crushing chest pain. He cannot tell us exactly when he woke up. EMS was called they gave him 100 mcg of fentanyl, 324 mg aspirin and 1 nitro on route and the pain is significantly improved. Patient is alert to name only as he has dementia. And this is his baseline. Patient has an extensive history of coronary artery disease with history of multiple MIs and CABG in the past. Patient sees Dr. Vallejo. 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, proceed with medical therapy and/or counseling, and echo of 07/12/2022 showed mildly dilated left ventricular cavity with ejection fraction of 30%, [facility] 2 PFSH: Medical History Tremor Ventricular tachycardia CAD (coronary artery disease) Dementia Chronic anticoagulation Controlled diabetes mellitus Vitamin D deficiency Neuropathic peripheral nerve Iron deficiency Essential (primary) hypertension Mixed hyperlipidemia Atrial fibrillation, chronic Anxiety disorder, unspecified Encounter for therapeutic drug level monitoring Surgical History History of appendectomy 1979 Hx of CABG in 1991 Family History Mother Diabetes Dementia Grandmother Heart disease Paternal Social History Smoking and tobacco/nicotine status: former use of tobacco/nicotine Second hand smoke exposure: No Alcohol intake: never Substance/Drug Use: never Adopted: No Caregiver/support person: No Lives independently: Yes Household members: spouse Housing: House Marital status: service: No Current occupational status: retired Do you think of yourself as: Straight/Heterosexual Current gender identity: Male Physical Exam 2 Const: COMMON NORMALS: no acute distress, average body habitus, no limitations, healthy appearing, alert and well nourished HENMT: COMMON NORMALS: normocephalic, atraumatic, hearing grossly normal bilaterally, external ears normal, Normal external nose present, moist oral mucous membranes and oropharynx normal HEAD & SCALP: normocephalic and atraumatic NOSE: Normal external nose present EXTERNAL EAR: Yes external ears normal Eye: COMMON NORMALS: Equal, round and reactive pupils present, EOMs intact bilaterally, conjunctivae normal and no scleral icterus CONJUNCTIVA: Yes conjunctivae normal PUPIL: Yes Equal, round and reactive pupils present Neck/C-Spine: COMMON NORMALS: full ROM, no lymphadenopathy, supple, no meningeal signs, no JVD and Thyroid normal THYROID: Thyroid normal Chest: COMMONS NORMALS: normal inspection of the chest and normal palpation of entire chest wall Resp: COMMON NORMALS: normal respiratory effort, No retractions, No use of accessory muscles and clear to auscultation bilaterally AUSCULTATION: clear to auscultation bilaterally Cardio: COMMON NORMALS: no JVD, regular rate, regular rhythm, S1 normal heart sound present, S2 normal heart sound present, No gallops present (Cardio), No clicks present (Cardio), No murmurs present (Cardio) and No rub (Cardio) R ATE: regular rate RHYTHM: regular rhythm HEART SOUNDS: S1 normal heart sound present and S2 normal heart sound present GI: COMMON NORMALS: Normal to inspection, nondistended, normoactive bowel sounds present, Soft to palpation, non-tender, No hepatosplenomegaly present and no masses PALPATION: Yes Soft to palpation and Yes No hepatosplenomegaly present Neuro: SENSORIUM/ORIENTATION: Yes alert MENINGEAL SIGNS: Yes no meningeal signs Course 2 Vital Signs: Vital signs: Vital Signs Temperature 97.9 F 02/08/24 01:25 Pulse Rate 59 L 02/08/24 04:15 Respiratory Rate 16 02/08/24 04:15 Blood Pressure 114/77 02/08/24 04:15 Pulse Oximetry 99 02/08/24 04:15 Oxygen Delivery Me thod Room Air 02/08/24 02:07 Oxygen Flow Rate 2 02/08/24 01:25 MDM - Chest Pain Medical Decision Making EKG text immediately to Dr. Desai. He says does not appear to STEMI for him but he wanted an old EKG to compare to. Old EKG was found that was texted to him as well, Dr. Desai called back and said he was not impressed as there is hardly no change and he does not feel this is a STEMI he wanted us to continue the workup get a troponin and then call him back. Call Dr. Desai back after we get the initial troponin which was 13. Dr. Desai was confident that this is not a STEMI and probably not cardiac in nature. He did recommend getting a second troponin and if it is negative feels comfortable having us discharge him home. Serial EKGs did not show any acute changes, serial troponins stayed within the normal limits, patient had no more chest pain. Patient be discharged home. Differential Diagnosis Unlikely acute massive pulmonary embolism, acute respiratory failure, acute myocardial infarction, cardiac arrest or sudden cardiac Medical Records I reviewed the patient's medical records. Lab Data I reviewed the patient's lab results. 02/08/24 01:49 02/08/24 01:49 Radiology Impressions Chest X-Ray 02/08/24 01:44 IMPRESSION: Nonspecific infiltration of the retrocardiac and right middle lobe, may represent infection, atelectasis, aspiration, correlate with patient presentation and physical examination. Laboratory Results WBC 7.00 10^3/uL (3.29-11.43) 02/08/24 01:49 RBC 4.39 10^6/uL (3.85-5.65) 02/08/24 01:49 Hgb 13.90 g/dL (11.27-16.99) 02/08/24 01:49 Hct 41.0 % (37-53) 02/08/24 01:49 MCV 93.4 fl (82-101) 02/08/24 01:49 MCH 31.7 pg (27-33) 02/08/24 01:49 MCHC 33.9 g/dL (30-55) 02/08/24 01:49 RDW 13.7 % (12.1-15.1) 02/08/24 01:49 Plt Count 155 10^3/cmm (157-399) L 02/08/24 01:49 MPV 9.1 fL (7.4-10.4) 02/08/24 01:49 Neut % (Auto) 58.7 % 02/08/24 01:49 Lymph % (Auto) 30.3 % 02/08/24 01:49 [place] % (Auto) 7.3 % 02/08/24 01:49 Eos % (Auto) 1.1 % 02/08/24 01:49 Baso % (Auto) 0.9 % 02/08/24 01:49 Neut # (Auto) 4.11 10^3/uL (1.8-7.7) 02/08/24 01:49 Lymph # (Auto) 2.1 10^3/uL (0.8-4.8) 02/08/24 01:49 [place] # (Auto) 0.5 10^3/uL (0.2-0.9) 02/08/24 01:49 Eos # (Auto) 0.1 10^3/uL (0.0-0.8) 02/08/24 01:49 Baso # (Auto) 0.1 10^3/uL (0.0-0.1) 02/08/24 01:49 Nucleated RBC % (auto) 0 % 02/08/24 01:49 Nucleated RBCs # 0.0 /100WBC 02/08/24 01:49 PT 33.00 SECONDS (12.1-14.9) H 02/08/24 01:49 INR 3.09 (0.8-1.2) H 02/08/24 01:49 Sodium 130 mmol/L (136-145) L 02/08/24 01:49 Potassium 4.3 mmol/L (3.5-5.1) 02/08/24 01:49 Chloride 98 mmol/L (98-107) 02/08/24 01:49 Carbon Dioxide 21 mmol/L (22-29) L 02/08/24 01:49 Anion Gap 15.3 (5-19) 02/08/24 01:49 BUN 18 mg/dL (8-23) 02/08/24 01:49 Creatinine 0.9 mg/dL (0.7-1.2) 02/08/24 01:49 GFR Calculation Not Reportable 02/08/24 01:49 Glucose 104 mg/dL (65-115) 02/08/24 01:49 Calculated Osmolality 272 mOsm/kg (285-295) L 02/08/24 01:49 Calcium 8.3 mg/dL (8.5-10.5) L 02/08/24 01:49 Total Bilirubin 0.5 mg/dL (0.15-1.2) 02/08/24 01:49 AST 19 U/L (0-40) 02/08/24 01:49 ALT 14 U/L (0-41) 02/08/24 01:49 Alkaline Phosphatase 84 U/L (40-130) 02/08/24 01:49 Troponin T Baseline 13 ng/L (0-15) 02/08/24 01:49 Troponin T 120 Minute 11.19 ng/L (0-15) 02/08/24 03:45 Delta Troponin T -1.81 ABS# (0-10) L 02/08/24 03:45 Total Protein 6.1 g/dL (6.6-8.7) L 02/08/24 01:49 Albumin 3.5 g/dL (3.5-5.2) 02/08/24 01:49 Globulin 2.6 g/dL (1.3-4.6) 02/08/24 01:49 All radiology interpretation(s) finalized by discharge Discharge Plan Discharge Patient Disposition: Home Clinical Impression: Atypical chest pain Prescriptions: No Action (DME) Accu-Chek Julianna Plus test strp Strip See Rx Instructions .ROUTE .MEDSUPPLY Qty: 50 5RF Rx Instructions: 1 strip daily (DME) standard wheelchair See Rx Instructions .Route .MEDSUPPLY Qty: 1 0RF Rx Instructions: As directed polyethylene glycol 3350 [Miralax] 17 gram/dose powder 17 g PO DAILY Qty: 510 2RF warfarin 5 mg tablet 5 mg PO DAILY Qty: 90 3RF Protocol: Dose Management Condition: Saturday Dose/Route: 2.5 mg Instruction: 0.5 x 5 mg tablets Condition: Saturday Dose/Route: 5 mg Instruction: 1 x 5 mg tablet Condition: Saturday Dose/Route: 2.5 mg Instruction: 0.5 x 5 mg tablets Condition: Saturday Dose/Route: 2.5 mg Instruction: 0.5 x 5 mg tablets Condition: Dose/Route: 2.5 mg Instruction: 0.5 x 5 mg tablets Condition: Saturday Dose/Route: 5 mg Instruction: 1 x 5 mg tablet Condition: Saturday Dose/Route: 2.5 mg Instruction: 0.5 x 5 mg tablets Protocol Text: Adjustment Start Date: Saturday02/04/24 INR Value: 32.20 SECONDS INR Date: 02/04/24 Recheck Date: 03/03/24 nitroglycerin [Nitro-Dur] 0.4 mg/hr patch 24 hour 1 patch TRANSDERMA Q24H Qty: 90 3RF Rx Instructions: allow nitrate-free interval of approx. 10-12 hrs per 24-hour period metformin 500 mg tablet extended release 24 hr See Rx Instructions .ROUTE .COMPLEX Qty: 90 1RF Hold Instructions: Resume on 08/22/22. Dose Instruction: TAKE ONE TABLET BY MOUTH DAILY FOR 30 DAYS Rx Instructions: TAKE ONE TABLET BY MOUTH DAILY amiodarone 200 mg tablet 200 mg PO DAILY Qty: 90 3RF enalapril maleate 10 mg tablet 10 mg PO BID Qty: 180 4RF cholecalciferol (vitamin D3) 1,250 mcg (50,000 unit) capsule See Rx Instructions .ROUTE .COMPLEX Qty: 3 3RF Dose Instruction: TAKE ONE CAPSULE BY MOUTH ONCE A MONTH Rx Instructions: TAKE ONE CAPSULE BY MOUTH ONCE A MONTH metoprolol succinate 50 mg tablet extended release 24 hr 50 mg PO QAM Qty: 90 3RF aspirin 81 mg Tablet,Delayed Release (Dr/Ec) 81 mg PO QAM folic acid 1 mg tablet 1 mg PO QAM Rx Instructions: getting over the counter ferrous sulfate [iron] 325 mg (65 mg iron) Tablet 325 mg PO DAILY potassium gluconate 595 mg (99 mg) Tablet 595 mg PO DAILY magnesium oxide 400 mg magnesium Tablet 400 mg PO DAILY Discharge Orders: Discharge ED (Routine); Ordered 02/08/24 Ordered By: Jamal Sims Referrals: Yanely Owens FNP [Primary Care Provider] - 1 week Patient Instructions: Chest Pain (ED) Activity Restrictions/Additional Instructions: Your chest pain workup in ER did not show a cardiac cause of your chest pain. It is felt to be noncardiac in nature. Please follow-up with your family practice physician or ground intelligence officer within the next 7 days for further evaluation and treatment. If this chest pain returns please feel free to return to the ER. Coding Level of Care Code ED Professor Of Violin for Marina Daniels
--- NOTE | 2024-02-08 01:44 | XRR_ITS ---
PROCEDURE INFORMATION: Exam: XR Chest Exam date and time: 02/08/2024 1:50 AM Age: 74 years old Clinical indication: Chest pressure; Prior surgery; Surgery date: 6+ months; Surgery type: Cabg; Patient HX: C/O chest pain TECHNIQUE: Imaging protocol: Radiologic exam of the chest. Views: 1 view. COMPARISON: CR XR chest 1V portable [id number] 07/12/2022 12:55 PM FINDINGS: Lungs: Retrocardiac and right middle lobe reticular/curvilinear infiltrates. Pleural spaces: Unremarkable. No pleural effusion. No pneumothorax. Heart/Mediastinum: Stable appearance of the cardiomediastinal silhouette. Bones/joints: Diffuse degenerative changes of the visualized osseous structures. XR/XR chest 1V portable [id number] IMPRESSION: Nonspecific infiltration of the retrocardiac and right middle lobe, may represent infection, atelectasis, aspiration, correlate with patient presentation and physical examination.
[2024-02-08 01:59] LABS: Basophils # 0.1 10^3/uL (0.0-0.1); Basophils % 0.9 %; Eosinophils # 0.1 10^3/uL (0.0-0.8); Eosinophils % 1.1 %; Lymphocytes # 2.1 10^3/uL (0.8-4.8); Lymphocytes % 30.3 %; Mean Corpuscular HGB Conc 33.9 g/dL (30-55); Mean Corpuscular Hemoglobin 31.7 pg (27-33); Mean Corpuscular Volume 93.4 fl (82-101); Mean Platelet Volume 9.1 fL (7.4-10.4); Monocytes # 0.5 10^3/uL (0.2-0.9); Monocytes % 7.3 %; Neutrophils # 4.11 10^3/uL (1.8-7.7); Neutrophils % 58.7 %; Nucleated Red Blood Cells % 0 %; Platelet Count 155 10^3/cmm (157-399); Red Blood Count 4.39 10^6/uL (3.85-5.65); Red Cell Distribution Width 13.7 % (12.1-15.1)
[2024-02-08] MEDS: morphine 4 mg/mL SDV 1 mL 2 MG IVP (02:02)
[2024-02-08 02:07] VITALS: BP 118/60; PULSE 67; RESP 16; O2SAT 98
[2024-02-08 02:10] LABS: INR 3.09 (0.8-1.2)
[2024-02-08 02:18] LABS: Troponin(5th) Baseline 13 ng/L (0-15)
[2024-02-08 02:38] LABS: Alanine Aminotransferase 14 U/L (0-41); Albumin Level 3.5 g/dL (3.5-5.2); Alkaline Phosphatase 84 U/L (40-130); Anion Gap 15.3 (5-19); Aspartate Amino Transferase 19 U/L (0-40); Blood Urea Nitrogen 18 mg/dL (8-23); Calcium 8.3 mg/dL (8.5-10.5); Carbon Dioxide 21 mmol/L (22-29); Chloride 98 mmol/L (98-107); Creatinine Clr Calc Pharmacy 78.7864; Globulin 2.6 g/dL (1.3-4.6); Glucose 104 mg/dL (65-115); Osmolality Calculated 272 mOsm/kg (285-295); Potassium 4.3 mmol/L (3.5-5.1); Sodium 130 mmol/L (136-145); Total Bilirubin 0.5 mg/dL (0.15-1.2); Total Protein 6.1 g/dL (6.6-8.7)
--- NOTE | 2024-02-08 03:44 | ECG_ITS ---
[facility] Test Date: 2024-02-08 Pat Name: Justyn Pedroza Department: Room: Gender: Male Criminal Intelligence Analyst: : 1950 Requested By: Jamal Sims Order Number: [id number] Rustam MD: Eduar Desai M.D. Measurements Intervals [place] Rate: 55 P: 0 RI: 0 QRS: 51 QRSD: 125 T: 52 QT: 484 QTc: 464 Interpretive Statements ATRIAL FIBRILLATION WITH SLOW VENTRICULAR RESPONSE INFERIOR MYOCARDIAL INFARCTION , PROBABLY OLD [40+ ms Q WAVE AND/OR ST/T ABNORMALITY IN II/aVF] Compared to ECG 07/13/2022 15:52:53 Myocardial infarct finding now present Ventricular premature complex(es) no longer present Aberrant conduction of supraventricular beat(s) no longer present Intraventricular conduction delay no longer present Electronically Signed On 02-08-2024 8:50:26 MEN'S GARMENT FITTER by Eduar Desai M.D. [email or web address]
[2024-02-08 04:15] VITALS: BP 114/77; PULSE 59; RESP 16; O2SAT 99
[2024-02-08 04:27] LABS: Troponin 5 2HR 11.19 ng/L (0-15); Troponin 5 2HR Delta -1.81 ABS# (0-10)
[2024-02-08 04:49] VITALS: BP 114/77; PULSE 59; RESP 16; TEMP 36.6; O2SAT 99
== END 2024-02-08 04:50 | disposition home or self-care (01) ==
PROVIDERS: Emergency Provider Emergency Medicine; PCP Nurse Practitioner Family
DX: R07.89 Other chest pain (principal); Z79.01 Long term (current) use of anticoagulants; Z79.84 Long term (current) use of oral hypoglycemic drugs; Z79.82 Long term (current) use of aspirin; Z87.891 Personal history of nicotine dependence; I25.10 Atherosclerotic heart disease of native coronary artery without angina pectoris; F03.90 Unspecified dementia, unspecified severity, without behavioral disturbance, psychotic disturbance, mood disturbance, and anxiety; E11.9 Type 2 diabetes mellitus without complications; I10 Essential (primary) hypertension; E78.2 Mixed hyperlipidemia; Z95.1 Presence of aortocoronary bypass graft
CPT/HCPCS: 71045; 80053; 84484; 85025; 85610; 93005; 96374; 99285; J2270

== ENCOUNTER → 2024-02-13 10:33 | Outpatient (BNVA) | payer MEDICARE, MEDICAID, SELFPAY | PROVIDERS: PCP Nurse Practitioner Family; Visit Provider Nurse Practitioner Family | DX: I10 Essential (primary) hypertension (principal); E11.9 Type 2 diabetes mellitus without complications; I25.10 Atherosclerotic heart disease of native coronary artery without angina pectoris; E55.9 Vitamin D deficiency, unspecified | CPT/HCPCS: 80053; 80061; 82306; 83036; 83735; 84443; 85025; G0103 ==

== ENCOUNTER → 2024-03-04 10:13 | Outpatient (BNVA) | payer MEDICARE, MEDICAID, SELFPAY | PROVIDERS: PCP Nurse Practitioner Family; Visit Provider Internal Medicine | DX: Z79.01 Long term (current) use of anticoagulants (principal) | CPT/HCPCS: 85610 ==

== ENCOUNTER → 2024-04-10 09:15 | Outpatient (BNVA) | payer MEDICARE, MEDICAID, SELFPAY | PROVIDERS: PCP Nurse Practitioner Family; Visit Provider Internal Medicine | DX: Z79.01 Long term (current) use of anticoagulants (principal) | CPT/HCPCS: 85610 ==

== ENCOUNTER → 2024-05-08 09:48 | Outpatient (BNVA) | payer MEDICARE, MEDICAID, SELFPAY | PROVIDERS: PCP Nurse Practitioner Family; Visit Provider Internal Medicine | DX: Z79.01 Long term (current) use of anticoagulants (principal) | CPT/HCPCS: 85610 ==

== ENCOUNTER → 2024-05-14 10:45 | Outpatient (BNVA) | payer MEDICARE, MEDICAID, SELFPAY | PROVIDERS: PCP Nurse Practitioner Family; Visit Provider Internal Medicine | DX: Z79.01 Long term (current) use of anticoagulants (principal) | CPT/HCPCS: 85610 ==

== ENCOUNTER → 2024-05-28 10:06 | Outpatient (BNVA) | payer MEDICARE, MEDICAID, SELFPAY | PROVIDERS: PCP Nurse Practitioner Family; Visit Provider Internal Medicine | DX: I47.20 Ventricular tachycardia, unspecified (principal) | CPT/HCPCS: 85610 ==

== ENCOUNTER 2024-05-31 14:16 | Emergency (ER) | payer MEDICARE, MEDICAID, SELFPAY ==
[2024-05-31 14:20] VITALS: BP 106/59; PULSE 75; RESP 18; TEMP 36.3; O2SAT 99
--- NOTE | 2024-05-31 14:40 | CTR_ITS ---
PROCEDURE INFORMATION: Exam: CT Abdomen And Pelvis With Contrast Exam date and time: 05/31/2024 3:46 PM Age: 74 years old Clinical indication: Abdominal pain; Generalized; Additional info: Diffuse abd pain x1 day TECHNIQUE: Imaging protocol: Computed tomography of the abdomen and pelvis with contrast. Radiation optimization: All CT scans at this facility use at least one of these dose optimization techniques: automated exposure control; mA and/or kV adjustment per patient size (includes targeted exams where dose is matched to clinical indication); or iterative reconstruction. Contrast material: OMNI 350; Contrast volume: 100 ml; Contrast route: INTRAVENOUS (IV); COMPARISON: CR XR chest 1V portable [id number] 02/08/2024 1:50 AM RADIATION DOSE METRICS: Total DLP (mGy-cm): 629.14 FINDINGS: Liver: No acute findings Gallbladder and biliary ducts: Cholelithiasis and/or gallbladder sludge. Mild distension but no acute inflammatory changes. Pancreas: No ductal dilation. Spleen: No splenomegaly. Adrenal glands: No mass. Kidneys and ureters: No stones or hydronephrosis. 1.5 cm right renal hypodense lesion of indeterminate density approximately 60 HU. Stomach and bowel: Diffuse thickening of the distal esophagus and proximal stomach No obstruction. Moderate rectal stool with rectal wall thickening, nonspecific. Appendix: No evidence of appendicitis. Intraperitoneal space: Multiple small partially calcified mesenteric lesions0 without suspicious features. Vasculature: No abdominal aortic aneurysm. Lymph nodes: No enlarged lymph nodes. Urinary bladder: Incompletely distended. Reproductive: No acute findings. Bones/joints: Degenerative changes without acute findings. Soft tissues: No acute findings. CT/CT abdomen pelvis w con* [id number] IMPRESSION: No acute abdominal findings. Moderate colorectal stool/constipation with nonspecific rectal wall thickening. Diffuse thickening of the distal esophagus and proximal stomach which may be secondary to esophagitis/gastritis. Consider endoscopy in the appropriate clinical context. 1.5 cm right renal lesion of indeterminate density. Nonemergent renal ultrasound recommended for further characterization. Cholelithiasis and/or gallbladder sludge.
--- NOTE | 2024-05-31 15:02 | W.ED.ABDPA2 ---
HPI - Abdominal Pain General: Chief Complaint: Abdominal Pain Stated Complaint: ABD pain Time Seen by Provider: 05/31/24 14:30 Source: family Mode of arrival: ambulatory Limitations: altered mental status History of Present Illness: Patient is a 74-year-old male who is brought into the emergency department by family for abdominal pain for the past day. Patient has a history of CAD, dementia, diabetes, and A-fib and has had 2 days of diminished appetite as well as smaller than usual bowel movements. Today he was grabbing at his lower abdomen and indicating that he was having pain, specifically worse with bowel movement and straining while urinating. They did give him milk of magnesia however this did not improve the symptoms. Patient is chronically alert and oriented only to self, though sometimes he does not even know who he is. He does live at home with family. There has been no acute mental status changes reported. No recent medication changes. No recent dietary changes to note. Does have history of appendectomy as well as open heart surgery. No fever, nausea or vomiting, diarrhea, or other symptoms to report at this time. Review of systems is unobtainable due to patient's dementia. MD elicited complaint: abdominal pain Onset (ago): day(s) Pain Consistency: constant Location: RLQ and LLQ Severity: mild Quality: cramping Treatments prior to arrival: other (milk of magnesia) Review of Systems General: Reports: ROS unobtainable due to mental status [facility] PFSH: Medical History Tremor Ventricular tachycardia CAD (coronary artery disease) Dementia Chronic anticoagulation Controlled diabetes mellitus Vitamin D deficiency Neuropathic peripheral nerve Iron deficiency Essential (primary) hypertension Mixed hyperlipidemia Atrial fibrillation, chronic Anxiety disorder, unspecified Encounter for therapeutic drug level monitoring Surgical History History of appendectomy 1979 Hx of CABG in 1991 Family History Mother Diabetes Dementia Grandmother Heart disease Paternal Social History Smoking and tobacco/nicotine status: former use of tobacco/nicotine Second hand smoke exposure: No Alcohol intake: never Substance/Drug Use: never Adopted: No Caregiver/support person: No Lives independently: Yes Household members: spouse Housing: House Marital status: service: No Current occupational status: retired Do you think of yourself as: Straight/Heterosexual Current gender identity: Male Physical Exam Const: COMMON NORMALS: no acute distress, average body habitus, healthy appearing, alert and well nourished EXAM LIMITATIONS: altered mental status GENERAL APPEARANCE: cooperative and comfortable ORIENTATION/CONSCIOUSNESS: Yes awake and Yes oriented to person HENMT: COMMON NORMALS: normocephalic, atraumatic, hearing grossly normal bilaterally, external ears normal, Normal external nose present, Normal nasal mucous membranes and turbinates present and moist oral mucous membranes HEAD & SCALP: normocephalic and atraumatic NOSE: Normal external nose present and Normal nasal mucous membranes and turbinates present EXTERNAL EAR: Yes external ears normal Eye: COMMON NORMALS: Equal, round and reactive pupils present, EOMs intact bilaterally, conjunctivae normal and normal visual [place] by confrontation CONJUNCTIVA: Yes conjunctivae normal PUPIL: Yes Equal, round and reactive pupils present Neck/C-Spine: COMMON NORMALS: full ROM, supple, no meningeal signs and no JVD Chest: OTHER: Presence of poststernotomy scar Resp: COMMON NORMALS: normal respiratory effort, No retractions, No use of accessory muscles and clear to auscultation bilaterally AUSCULTATION: clear to auscultation bilaterally, no crackles, no rales, no rhonchi and no wheezes Cardio: COMMON NORMALS: no JVD, regular rate, regular rhythm, S1 normal heart sound present, S2 normal heart sound present, No gallops present (Cardio), No clicks present (Cardio), No murmurs present (Cardio), No rub (Cardio) and Peripheral pulses 2+ throughout RATE: regular rate RHYTHM: regular rhythm HEART SOUNDS: S1 normal heart sound present and S2 normal heart sound present PERIPHERAL PULSES: Peripheral pulses 2+ throughout GI: COMMON NORMALS: Normal to inspection, nondistended, normoactive bowel sounds present, Soft to palpation, No hepatosplenomegaly present and no masses AUSCULTATION: Yes normoactive bowel sounds PALPATION: Yes Soft to palpation, No Rigid due to palpation and Yes No hepatosplenomegaly present RECTAL EXAM: Yes deferred OTHER: Diffuse tenderness to light palpation noted : COMMON NORMALS: Yes no CVA tenderness BLADDER/KIDNEY EXAM: Yes no CVA tenderness Back/Pelvis: COMMON NORMALS: no CVA tenderness Extremity: COMMON NORMALS: normal to inspection and full ROM Neuro: COMMON NORMALS: moves all extremities, no focal motor deficits and no sensory deficits noted SENSORIUM/ORIENTATION: Yes alert and Yes oriented to person MENINGEAL SIGNS: Yes no meningeal signs Psych: COMMON NORMALS: cooperative and speech normal SPEECH: Yes normal speech Skin: COMMON NORMALS: no rashes or lesions noted GENERAL SKIN EXAM: no rashes or lesions noted Course Vital Signs: Vital signs: Vital Signs Temperature 97.4 F L 05/31/24 14:20 Pulse Rate 92 05/31/24 16:00 Respiratory Rate 18 05/31/24 14:20 Blood Pressure 128/86 05/31/24 16:00 Pulse Oximetry 92 05/31/24 16:00 Oxygen Delivery Me thod Room Air 05/31/24 16:00 MDM - Abdominal Pain Medical Decision Making Patient was brought in by family due to acute onset of abdominal pain. History of dementia is only alert and oriented to himself on examination. There was some diffuse tenderness to light palpation. His vitals were unremarkable on arrival and have remained stable. Lab work unremarkable. Urinalysis was normal. Abdomen and pelvis CT did reveal moderate stool burden, family at this time is only tried milk of magnesia which did not help. I will send home with mag citrate and send MiraLAX to pharmacy, and they are instructed to follow-up with primary care. Reasons to return are discussed. Care of patient discussed with supervising ED physician, Dr. Caro, who agrees with disposition at this time. Lab Data 05/31/24 14:56 05/31/24 14:56 Labs/Radiology: Radiology Impressions Abdomen/Pelvis CT 05/31/24 14:40 IMPRESSION: No acute abdominal findings. Moderate colorectal stool/constipation with nonspecific rectal wall thickening. Diffuse thickening of the distal esophagus and proximal stomach which may be secondary to esophagitis/gastritis. Consider endoscopy in the appropriate clinical context. 1.5 cm right renal lesion of indeterminate density. Nonemergent renal ultrasound recommended for further characterization. Cholelithiasis and/or gallbladder sludge. Laboratory Results WBC 7.62 10^3/uL (3.29-11.43) 05/31/24 14:56 RBC 4.70 10^6/uL (3.85-5.65) 05/31/24 14:56 Hgb 15.00 g/dL (11.27-16.99) 05/31/24 14:56 Hct 45.0 % (37-53) 05/31/24 14:56 MCV 95.7 fl (82-101) 05/31/24 14:56 MCH 31.9 pg (27-33) 05/31/24 14:56 MCHC 33.3 g/dL (30-55) 05/31/24 14:56 RDW 13.3 % (12.1-15.1) 05/31/24 14:56 Plt Count 142 10^3/cmm (157-399) L 05/31/24 14:56 MPV 9.5 fL (7.4-10.4) 05/31/24 14:56 Neut % (Auto) 69.4 % 05/31/24 14:56 Lymph % (Auto) 22.2 % 05/31/24 14:56 Johnson % (Auto) 6.3 % 05/31/24 14:56 Eos % (Auto) 0.7 % 05/31/24 14:56 Baso % (Auto) 0.7 % 05/31/24 14:56 Neut # (Auto) 5.30 10^3/uL (1.8-7.7) 05/31/24 14:56 Lymph # (Auto) 1.7 10^3/uL (0.8-4.8) 05/31/24 14:56 Johnson # (Auto) 0.5 10^3/uL (0.2-0.9) 05/31/24 14:56 Eos # (Auto) 0.1 10^3/uL (0.0-0.8) 05/31/24 14:56 Baso # (Auto) 0.1 10^3/uL (0.0-0.1) 05/31/24 14:56 Nucleated RBC % (auto) 0 % 05/31/24 14:56 Nucleated RBCs # 0.0 /100WBC 05/31/24 14:56 Sodium 137 mmol/L (136-145) 05/31/24 14:56 Potassium 3.7 mmol/L (3.5-5.1) 05/31/24 14:56 Chloride 100 mmol/L (98-107) 05/31/24 14:56 Carbon Dioxide 26 mmol/L (22-29) 05/31/24 14:56 Anion Gap 14.7 (5-19) 05/31/24 14:56 BUN 21 mg/dL (8-23) 05/31/24 14:56 Creatinine 1.4 mg/dL (0.7-1.2) H 05/31/24 14:56 GFR Calculation Not Reportable 05/31/24 14:56 Glucose 93 mg/dL (65-115) 05/31/24 14:56 Calculated Osmolality 287 mOsm/kg (285-295) 05/31/24 14:56 Calcium 8.1 mg/dL (8.5-10.5) L 05/31/24 14:56 Total Bilirubin 0.7 mg/dL (0.15-1.2) 05/31/24 14:56 AST 12 U/L (0-40) 05/31/24 14:56 ALT 9 U/L (0-41) 05/31/24 14:56 Alkaline Phosphatase 176 U/L (40-130) H 05/31/24 14:56 Total Protein 6.0 g/dL (6.6-8.7) L 05/31/24 14:56 Albumin 3.4 g/dL (3.5-5.2) L 05/31/24 14:56 Globulin 2.6 g/dL (1.3-4.6) 05/31/24 14:56 Lipase 12 U/L (13-60) L 05/31/24 14:56 Urine Color Yellow (Yellow) 05/31/24 15:23 Urine Appearance Clear (CLEAR) 05/31/24 15:23 Urine pH 8 (5-7) H 05/31/24 15:23 Ur Specific [place] 1.015 (1.005-1.030) 05/31/24 15:23 Urine Protein Neg (Negative) 05/31/24 15:23 Urine Glucose (UA) Norm (Normal) 05/31/24 15:23 Urine Ketones Negative (Negative) 05/31/24 15:23 Urine Blood Neg (Negative) 05/31/24 15:23 Urine Nitrate Negative (Negative) 05/31/24 15:23 Urine Bilirubin Neg (Negative) 05/31/24 15:23 Urine Urobilinogen 1 mg/dL (Negative) H 05/31/24 15:23 Ur Leukocyte Esterase Negative (Negative) 05/31/24 15:23 All radiology interpretation(s) finalized by discharge Discharge Plan Discharge Patient Disposition: Home Clinical Impression: Constipation Condition: Stable Prescriptions: New Miralax 17 gram/dose powder 4 g PO DAILY Qty: 119 0RF No Action (DME) Accu-Chek Julianna Plus test strp Strip See Rx Instructions .ROUTE .MEDSUPPLY Qty: 50 5RF Rx Instructions: 1 strip daily (DME) standard wheelchair See Rx Instructions .Route .MEDSUPPLY Qty: 1 0RF Rx Instructions: As directed polyethylene glycol 3350 [Miralax] 17 gram/dose powder 17 g PO DAILY Qty: 510 2RF fluticasone propionate [Flonase Allergy Relief] 50 mcg/actuation spray,suspension 2 spray intranasal DAILY Qty: 16 2RF Rx Instructions: administer into each nostril amiodarone 200 mg tablet 200 mg PO DAILY Qty: 90 3RF enalapril maleate 10 mg tablet 10 mg PO BID Qty: 180 4RF cholecalciferol (vitamin D3) 1,250 mcg (50,000 unit) capsule See Rx Instructions .ROUTE .COMPLEX Qty: 3 3RF Dose Instruction: TAKE ONE CAPSULE BY MOUTH ONCE A MONTH Rx Instructions: TAKE ONE CAPSULE BY MOUTH ONCE A MONTH metoprolol succinate 50 mg tablet extended release 24 hr 50 mg PO QAM Qty: 90 3RF warfarin 5 mg tablet 5 mg PO DAILY Qty: 90 3RF Protocol: Dose Management Condition: Saturday Dose/Route: 2.5 mg Instruction: 0.5 x 5 mg tablets Condition: Saturday Dose/Route: 2.5 mg Instruction: 0.5 x 5 mg tablets Condition: Saturday Dose/Route: 2.5 mg Instruction: 0.5 x 5 mg tablets Condition: Saturday Dose/Route: 2.5 mg Instruction: 0.5 x 5 mg tablets Condition: Dose/Route: 2.5 mg Instruction: 0.5 x 5 mg tablets Condition: Saturday Dose/Route: 2.5 mg Instruction: 0.5 x 5 mg tablets Condition: Saturday Dose/Route: 2.5 mg Instruction: 0.5 x 5 mg tablets Protocol Text: Adjustment Start Date: Brian 06/14/24 INR Value: 30.80 SECONDS INR Date: 05/14/24 Recheck Date: 05/29/24 nitroglycerin [Nitro-Dur] 0.4 mg/hr patch 24 hour 1 patch TRANSDERMA Q24H Qty: 90 3RF Rx Instructions: allow nitrate-free interval of approx. 10-12 hrs per 24-hour period metformin 500 mg tablet extended release 24 hr See Rx Instructions .ROUTE .COMPLEX Qty: 90 1RF Hold Instructions: Resume on 08/22/22. Dose Instruction: TAKE ONE TABLET BY MOUTH DAILY Rx Instructions: TAKE ONE TABLET BY MOUTH DAILY cholecalciferol (vitamin D3) 50 mcg (2,000 unit) capsule 50 mcg PO DAILY Qty: 90 1RF aspirin 81 mg Tablet,Delayed Release (Dr/Ec) 81 mg PO QAM folic acid 1 mg tablet 1 mg PO QAM Rx Instructions: getting over the counter ferrous sulfate [iron] 325 mg (65 mg iron) Tablet 325 mg PO DAILY potassium gluconate 595 mg (99 mg) Tablet 595 mg PO DAILY magnesium oxide 400 mg magnesium Tablet 400 mg PO DAILY Discharge Orders: Discharge ED (Routine); Ordered 05/31/24 Ordered By: Nick Morillo Referrals: Yanely Owens FNP [Primary Care Provider] - Discharge Diet: As Directed Discharge Activity: Increase activity as tolerated Patient Instructions: Constipation (ED) Activity Restrictions/Additional Instructions: Take mag citrate at home. Take MiraLAX. Plenty of fluids and increase your dietary fiber intake. Monitor for any new or worsening of symptoms and return for reevaluation. Follow-up with primary care. Coding Level of Care Code ED Manager Surgical for Marina Daniels
[2024-05-31 15:08] LABS: Basophils # 0.1 10^3/uL (0.0-0.1); Basophils % 0.7 %; Eosinophils # 0.1 10^3/uL (0.0-0.8); Eosinophils % 0.7 %; Lymphocytes # 1.7 10^3/uL (0.8-4.8); Lymphocytes % 22.2 %; Mean Corpuscular HGB Conc 33.3 g/dL (30-55); Mean Corpuscular Hemoglobin 31.9 pg (27-33); Mean Corpuscular Volume 95.7 fl (82-101); Mean Platelet Volume 9.5 fL (7.4-10.4); Monocytes # 0.5 10^3/uL (0.2-0.9); Monocytes % 6.3 %; Neutrophils % 69.4 %; Nucleated Red Blood Cells % 0 %; Platelet Count 142 10^3/cmm (157-399); Red Cell Distribution Width 13.3 % (12.1-15.1); White Blood Count 7.62 10^3/uL (3.29-11.43)
[2024-05-31 15:30] LABS: Add Urine Microscopic? NO; Charge for UA Resulting for Rev
[2024-05-31 15:31] LABS: Alanine Aminotransferase 9 U/L (0-41); Albumin Level 3.4 g/dL (3.5-5.2); Alkaline Phosphatase 176 U/L (40-130); Anion Gap 14.7 (5-19); Aspartate Amino Transferase 12 U/L (0-40); Blood Urea Nitrogen 21 mg/dL (8-23); Calcium 8.1 mg/dL (8.5-10.5); Carbon Dioxide 26 mmol/L (22-29); Chloride 100 mmol/L (98-107); Globulin 2.6 g/dL (1.3-4.6); Glucose 93 mg/dL (65-115); Lipase 12 U/L (13-60); Osmolality Calculated 287 mOsm/kg (285-295); Potassium 3.7 mmol/L (3.5-5.1); Sodium 137 mmol/L (136-145); Total Bilirubin 0.7 mg/dL (0.15-1.2)
[2024-05-31 15:33] LABS: Creatinine Clr Calc Pharmacy 48.2004
[2024-05-31 15:34] LABS: Glucose Urine UA Norm (Normal); Protein Urine Neg (Negative); Specific Gravity, Urine 1.015 (1.005-1.030); Urine Appearance Clear (CLEAR); Urine Color Yellow (Yellow); pH Urine 8 (5-7)
[2024-05-31 15:35] LABS: Bilirubin Urine Neg (Negative); Blood Urine Neg (Negative); Ketones Urine Negative (Negative); Leukocyte Esterase Urine Negative (Negative); Nitrate Urine Negative (Negative); Urobilinogen Urine 1 mg/dL (Negative)
[2024-05-31] MEDS: iohexol 350 mg/mL 500 mL Btl (per mL) IV (15:48)
[2024-05-31 15:55] VITALS: BP 132/97; O2SAT 93
[2024-05-31 16:00] VITALS: BP 128/86; PULSE 92; O2SAT 92
[2024-05-31] MEDS: magnesium citrate Btl 296 mL PO (17:28)
[2024-05-31 17:40] VITALS: BP 106/71; PULSE 76; RESP 16; O2SAT 96
== END 2024-05-31 17:41 | disposition home or self-care (01) ==
PROVIDERS: Emergency Provider Physician Assistant; PCP Nurse Practitioner Family
DX: K59.00 Constipation, unspecified (principal); Z79.01 Long term (current) use of anticoagulants; Z79.82 Long term (current) use of aspirin; Z79.84 Long term (current) use of oral hypoglycemic drugs; Z87.891 Personal history of nicotine dependence; I25.10 Atherosclerotic heart disease of native coronary artery without angina pectoris; F03.90 Unspecified dementia, unspecified severity, without behavioral disturbance, psychotic disturbance, mood disturbance, and anxiety; E11.9 Type 2 diabetes mellitus without complications; I10 Essential (primary) hypertension; E78.2 Mixed hyperlipidemia; Z95.1 Presence of aortocoronary bypass graft
CPT/HCPCS: 74177; 80053; 81003; 83690; 85025; 99285; Q9967

== ENCOUNTER → 2024-06-25 09:43 | Outpatient (BNVA) | payer MEDICARE, MEDICAID, SELFPAY | PROVIDERS: PCP Nurse Practitioner Family; Visit Provider Internal Medicine | DX: Z79.01 Long term (current) use of anticoagulants (principal) | CPT/HCPCS: 85610 ==

== ENCOUNTER → 2024-07-02 10:34 | Outpatient (BNVA) | payer MEDICARE, MEDICAID, SELFPAY | PROVIDERS: PCP Nurse Practitioner Family; Visit Provider Internal Medicine | DX: Z79.01 Long term (current) use of anticoagulants (principal) | CPT/HCPCS: 85610 ==

== ENCOUNTER → 2024-07-30 13:02 | Outpatient (BNVA) | payer MEDICARE, MEDICAID, SELFPAY | PROVIDERS: PCP Nurse Practitioner Family; Visit Provider Nurse Practitioner Family | DX: Z79.01 Long term (current) use of anticoagulants (principal); E11.9 Type 2 diabetes mellitus without complications | CPT/HCPCS: 80053; 80061; 82607; 83036; 84443; 85025; 85610 ==

== ENCOUNTER → 2024-08-05 09:53 | Outpatient (BNVA) | payer MEDICARE, MEDICAID, SELFPAY | PROVIDERS: PCP Nurse Practitioner Family; Visit Provider Internal Medicine | DX: I25.10 Atherosclerotic heart disease of native coronary artery without angina pectoris (principal); I25.118 Atherosclerotic heart disease of native coronary artery with other forms of angina pectoris | CPT/HCPCS: 85610 ==

== ENCOUNTER → 2024-08-11 12:34 | Outpatient (BNVA) | payer MEDICARE, MEDICAID, SELFPAY | PROVIDERS: PCP Nurse Practitioner Family; Visit Provider Internal Medicine | DX: E11.9 Type 2 diabetes mellitus without complications (principal); I25.10 Atherosclerotic heart disease of native coronary artery without angina pectoris; I25.118 Atherosclerotic heart disease of native coronary artery with other forms of angina pectoris; I48.20 Chronic atrial fibrillation, unspecified; I25.5 Ischemic cardiomyopathy; I47.20 Ventricular tachycardia, unspecified; Z87.891 Personal history of nicotine dependence | CPT/HCPCS: 85610; 99213 ==

== ENCOUNTER → 2024-08-25 09:55 | Outpatient (BNVA) | payer MEDICARE, MEDICAID, SELFPAY | PROVIDERS: PCP Nurse Practitioner Family; Visit Provider Internal Medicine Cardiovascular Disease | DX: Z79.01 Long term (current) use of anticoagulants (principal) | CPT/HCPCS: 85610 ==

== ENCOUNTER 2024-09-04 02:53 | Emergency (ER) | payer MEDICARE, MEDICAID, SELFPAY ==
[2024-09-04 02:55] VITALS: BP 152/118; PULSE 58; RESP 20; TEMP 36.6; O2SAT 96; BMI 27.3
[2024-09-04 03:01] VITALS: BP 154/112; PULSE 95; RESP 20; O2SAT 98
--- NOTE | 2024-09-04 03:02 | CTR_ITS ---
PROCEDURE INFORMATION: Exam: CT Head Without Contrast Exam date and time: 09/04/2024 3:09 AM Age: 74 years old Clinical indication: Injury or trauma; Fall; Blunt trauma (contusions or hematomas); Additional info: Fall posterior trauma on coumadin TECHNIQUE: Imaging protocol: Computed tomography of the head without contrast. Radiation optimization: All CT scans at this facility use at least one of these dose optimization techniques: automated exposure control; mA and/or kV adjustment per patient size (includes targeted exams where dose is matched to clinical indication); or iterative reconstruction. COMPARISON: No relevant prior studies available. RADIATION DOSE METRICS: Total DLP (mGy-cm): 1214.75 FINDINGS: Brain: There is no evidence of intracranial hemorrhage. No mass effect or midline shift. No territorial edema. There are moderate confluent periventricular hypodensities consistent with chronic microischemic changes of white matter. Cerebral ventricles: There is moderate volume loss and commensurate ventricular dilatation, consistent with the patient's age. Paranasal sinuses: There are no air-fluid levels. Mastoid air cells: The visualized mastoid air cells are well aerated. Orbital cavities: Bilateral intra-ocular lens implants. Bones: Unremarkable. No acute fracture. Soft tissues: Unremarkable. CT/CT head wo con* 20209 IMPRESSION: 1. No acute intracranial findings. 2. Moderate cerebral small-vessel disease. 3. Involutional changes of brain.
--- NOTE | 2024-09-04 03:21 | ED_ITS ---
HPI - Fall 2 General: Chief Complaint: Fall Stated Complaint: Fall Time Seen by Provider: 09/04/24 03:02 History of Present Illness: Patient presents to the ER by [facility] after a fall and hitting the back of his head. Patient has an abrasion on the back of his head. Patient does have a history of dementia per EMS patient is orientated at baseline. Patient is on Coumadin. Related Data Home Medications Medication Instructions Recorded Confirmed aspirin 81 mg tablet,delayed 81 mg PO QAM 07/12/22 08/16/24 release ferrous sulfate 325 mg (65 mg 325 mg PO DAILY 07/12/22 08/16/24 iron) tablet (iron) folic acid 1 mg tablet 1 mg PO QAM 07/12/22 08/16/24 magnesium oxide 400 mg PO DAILY 07/12/22 08/16/24 potassium gluconate 595 mg (99 mg) 595 mg PO DAILY 07/12/22 08/16/24 tablet Previous Rx's Medication Instructions Recorded blood sugar diagnostic (Accu-Chek #50 ea 03/13/21 Julianna Plus test strips) standard wheelchair #1 ea 05/21/23 metoprolol succinate 50 mg 50 mg PO QAM #90 tabs 01/03/24 tablet,extended release 24 hr warfarin 5 mg tablet 5 mg PO DAILY #90 tabs 02/17/24 nitroglycerin 0.4 mg/hr 1 patch transdermal Q24H #90 ea 05/21/24 transdermal 24 hour patch (Nitro-Dur) metformin 500 mg tablet,extended See Rx Instructions .Route 05/22/24 release 24 hr .COMPLEX #90 tabs polyethylene glycol 3350 17 4 g PO DAILY #119 grams 05/31/24 gram/dose oral powder (Miralax) enalapril maleate 10 mg tablet 10 mg PO BID #180 tabs 06/01/24 docusate sodium 100 mg capsule 100 mg PO BID PRN constipation 07/30/24 (Colace) #100 caps warfarin 2 mg tablet 2 mg PO DAILY #90 tabs 08/05/24 amiodarone 200 mg tablet See Rx Instructions .Route 08/20/24 .COMPLEX #90 tabs cholecalciferol (vitamin D3) 50 See Rx Instructions .Route 08/20/24 mcg (2,000 unit) capsule (Vitamin .COMPLEX #90 caps D3) Allergies Allergy/AdvReac Type Severity Reaction Status Date / Time venlafaxine [From Effexor] Allergy hypertensio Verified 08/11/24 12:53 n Review of Systems 2 General: Reports: 10 or more systems reviewed and unremarkable except in HPI and below PFSH ED 2 PFSH: Medical History Tremor Ventricular tachycardia CAD (coronary artery disease) Dementia Chronic anticoagulation Controlled diabetes mellitus Vitamin D deficiency Neuropathic peripheral nerve Iron deficiency Essential (primary) hypertension Mixed hyperlipidemia Atrial fibrillation, chronic Anxiety disorder, unspecified Encounter for therapeutic drug level monitoring Surgical History History of appendectomy 1979 Hx of CABG in 1991 Family History Mother Diabetes Dementia Grandmother Heart disease Paternal Social History Smoking and tobacco/nicotine status: former use of tobacco/nicotine Second hand smoke exposure: No Alcohol intake: never Substance/Drug Use: never Adopted: No Caregiver/support person: No Lives independently: Yes Household members: spouse Housing: House Marital status: service: No Current occupational status: retired Do you think of yourself as: Straight/Heterosexual Current gender identity: Male Physical Exam 2 Const: COMMON NORMALS: no acute distress, average body habitus and well nourished HENMT: COMMON NORMALS: normocephalic, hearing grossly normal bilaterally, external ears normal, Normal external nose present and moist oral mucous membranes; head/scalp not atraumatic (Abrasion noted on the posterior occipital region) HEAD & SCALP: normocephalic; not atraumatic (Abrasion noted on the posterior occipital region) NOSE: N ormal external nose present EXTERNAL EAR: Yes external ears normal Eye: COMMON NORMALS: Equal, round and reactive pupils present, EOMs intact bilaterally, conjunctivae normal and no scleral icterus CONJUNCTIVA: Yes conjunctivae normal PUPIL: Yes Equal, round and reactive pupils present Neck/C-Spine: COMMON NORMALS: full ROM, no lymphadenopathy, supple, no meningeal signs, no JVD and Thyroid normal THYROID: Thyroid normal Chest: COMMONS NORMALS: normal inspection of the chest and normal palpation of entire chest wall Resp: COMMON NORMALS: normal respiratory effort, No retractions, No use of accessory muscles and clear to auscultation bilaterally AUSCULTATION: clear to auscultation bilaterally Cardio: COMMON NORMALS: no JVD, regular rate, regular rhythm, S1 normal heart sound present, S2 normal heart sound present, No gallops present (Cardio), No clicks present (Cardio), No murmurs present (Cardio) and No rub (Cardio) R ATE: regular rate RHYTHM: regular rhythm HEART SOUNDS: S1 normal heart sound present and S2 normal heart sound present Neuro: MENINGEAL SIGNS: Yes no meningeal signs Course 2 Vital Signs: Vital signs: Vital Signs Temperature 98 F 09/04/24 02:55 Pulse Rate 95 09/04/24 03:01 Respiratory Rate 20 H 09/04/24 03:01 Blood Pressure 154/112 09/04/24 03:01 Pulse Oximetry 98 09/04/24 03:01 MDM - Fall Medical Decision Making Lab work was obtained, head CT was obtained, all essentially was negative for acute changes. Patient will be discharged home. Medical Records I reviewed the patient's medical records. Lab Data I reviewed the patient's lab results. 09/04/24 03:52 09/04/24 03:[address] 09/04/24 03:02 IMPRESSION: 1. No acute intracranial findings. 2. Moderate cerebral small-vessel disease. 3. Involutional changes of brain. Laboratory Results WBC 10.13 10^3/uL (3.29-11.43) 09/04/24 03:52 RBC 4.41 10^6/uL (3.85-5.65) 09/04/24 03:52 Hgb 14.00 g/dL (11.27-16.99) 09/04/24 03:52 Hct 42.5 % (37-53) 09/04/24 03:52 MCV 96.4 fl (82-101) 09/04/24 03:52 MCH 31.7 pg (27-33) 09/04/24 03:52 MCHC 32.9 g/dL (30-55) 09/04/24 03:52 RDW 14.4 % (12.1-15.1) 09/04/24 03:52 Plt Count 161 10^3/cmm (157-399) 09/04/24 03:52 MPV 9.1 fL (7.4-10.4) 09/04/24 03:52 Neut % (Auto) 75.2 % 09/04/24 03:52 Lymph % (Auto) 17.0 % 09/04/24 03:52 [place] % (Auto) 6.0 % 09/04/24 03:52 Eos % (Auto) 0.3 % 09/04/24 03:52 Baso % (Auto) 0.5 % 09/04/24 03:52 Neut # (Auto) 7.62 10^3/uL (1.8-7.7) 09/04/24 03:52 Lymph # (Auto) 1.7 10^3/uL (0.8-4.8) 09/04/24 03:52 [place] # (Auto) 0.6 10^3/uL (0.2-0.9) 09/04/24 03:52 Eos # (Auto) 0.0 10^3/uL (0.0-0.8) 09/04/24 03:52 Baso # (Auto) 0.1 10^3/uL (0.0-0.1) 09/04/24 03:52 Nucleated RBC % (auto) 0 % 09/04/24 03:52 Nucleated RBCs # 0.0 /100WBC 09/04/24 03:52 PT 24.00 SECONDS (12.1-14.9) H 09/04/24 03:52 INR 2.06 (0.8-1.2) H 09/04/24 03:52 Sodium 135 mmol/L (136-145) L 09/04/24 03:52 Potassium 4.1 mmol/L (3.5-5.1) 09/04/24 03:52 Chloride 100 mmol/L (98-107) 09/04/24 03:52 Carbon Dioxide 22 mmol/L (22-29) 09/04/24 03:52 Anion Gap 17.1 (5-19) 09/04/24 03:52 BUN 19 mg/dL (8-23) 09/04/24 03:52 Creatinine 1.1 mg/dL (0.7-1.2) 09/04/24 03:52 GFR Calculation Not Reportable 09/04/24 03:52 Glucose 100 mg/dL (65-115) 09/04/24 03:52 Calculated Osmolality 282 mOsm/kg (285-295) L 09/04/24 03:52 Calcium 9.0 mg/dL (8.5-10.5) 09/04/24 03:52 Total Bilirubin 0.9 mg/dL (0.15-1.2) 09/04/24 03:52 AST 31 U/L (0-40) 09/04/24 03:52 ALT 19 U/L (0-41) 09/04/24 03:52 Alkaline Phosphatase 111 U/L (40-130) 09/04/24 03:52 Total Protein 6.8 g/dL (6.6-8.7) 09/04/24 03:52 Albumin 4.0 g/dL (3.5-5.2) 09/04/24 03:52 Globulin 2.8 g/dL (1.3-4.6) 09/04/24 03:52 All radiology interpretation(s) finalized by discharge Discharge Plan Discharge Patient Disposition: Home Clinical Impression: Fall Qualifiers: Encounter type: initial encounter Qualified Code(s): W19.XXXA - Unspecified fall, initial encounter Dementia Qualifiers: Dementia type: unspecified type Contusion of head Qualifiers: Encounter type: initial encounter Contusion of head detail: scalp Qualified Code(s): S00.03XA - Contusion of scalp, initial encounter Condition: Stable Prescriptions: No Action (DME) Accu-Chek Julianna Plus test strp Strip See Rx Instructions .ROUTE .MEDSUPPLY Qty: 50 5RF Rx Instructions: 1 strip daily (DME) standard wheelchair See Rx Instructions .Route .MEDSUPPLY Qty: 1 0RF Rx Instructions: As directed docusate sodium [Colace] 100 mg capsule 100 mg PO BID PRN (Reason: constipation) Qty: 100 5RF metoprolol succinate 50 mg tablet extended release 24 hr 50 mg PO QAM Qty: 90 3RF warfarin 5 mg tablet 5 mg PO DAILY Qty: 90 3RF Protocol: Dose Management Condition: Saturday Dose/Route: 2.5 mg Instruction: 0.5 x 5 mg tablets Condition: Saturday Dose/Route: 2 mg Instruction: 1 x 2 mg tablet Condition: Saturday Dose/Route: 2.5 mg Instruction: 0.5 x 5 mg tablets Condition: Saturday Dose/Route: 2.5 mg Instruction: 0.5 x 5 mg tablets Condition: Dose/Route: 2 mg Instruction: 1 x 2 mg tablet Condition: Saturday Dose/Route: 2 mg Instruction: 1 x 2 mg tablet Condition: Saturday Dose/Route: 2.5 mg Instruction: 0.5 x 5 mg tablets Protocol Text: Adjustment Start Date: Saturday08/26/24 INR Value: 25.70 SECONDS INR Date: 08/25/24 Recheck Date: 09/23/24 nitroglycerin [Nitro-Dur] 0.4 mg/hr patch 24 hour 1 patch TRANSDERMA Q24H Qty: 90 3RF Rx Instructions: allow nitrate-free interval of approx. 10-12 hrs per 24-hour period metformin 500 mg tablet extended release 24 hr See Rx Instructions .ROUTE .COMPLEX Qty: 90 1RF Hold Instructions: Resume on 08/22/22. Dose Instruction: TAKE ONE TABLET BY MOUTH DAILY Rx Instructions: TAKE ONE TABLET BY MOUTH DAILY enalapril maleate 10 mg tablet 10 mg PO BID Qty: 180 3RF warfarin 2 mg tablet 2 mg PO DAILY Qty: 90 2RF Protocol: Dose Management Condition: Saturday Dose/Route: 2.5 mg Instruction: 0.5 x 5 mg tablets Condition: Saturday Dose/Route: 2 mg Instruction: 1 x 2 mg tablet Condition: Saturday Dose/Route: 2.5 mg Instruction: 0.5 x 5 mg tablets Condition: Saturday Dose/Route: 2.5 mg Instruction: 0.5 x 5 mg tablets Condition: Dose/Route: 2 mg Instruction: 1 x 2 mg tablet Condition: Saturday Dose/Route: 2 mg Instruction: 1 x 2 mg tablet Condition: Saturday Dose/Route: 2.5 mg Instruction: 0.5 x 5 mg tablets Protocol Text: Adjustment Start Date: Saturday08/26/24 INR Value: 25.70 SECONDS INR Date: 08/25/24 Recheck Date: 09/23/24 cholecalciferol (vitamin D3) [Vitamin D3] 50 mcg (2,000 unit) capsule See Rx Instructions .ROUTE .COMPLEX Qty: 90 1RF Dose Instruction: TAKE ONE CAPSULE BY MOUTH ONCE DAILY Rx Instructions: TAKE ONE CAPSULE BY MOUTH ONCE DAILY amiodarone 200 mg tablet See Rx Instructions .ROUTE .COMPLEX Qty: 90 3RF Dose Instruction: TAKE ONE TABLET BY MOUTH DAILY Rx Instructions: TAKE ONE TABLET BY MOUTH DAILY Miralax 17 gram/dose powder 4 g PO DAILY Qty: 119 0RF aspirin 81 mg Tablet,Delayed Release (Dr/Ec) 81 mg PO QAM folic acid 1 mg tablet 1 mg PO QAM Rx Instructions: getting over the counter ferrous sulfate [iron] 325 mg (65 mg iron) Tablet 325 mg PO DAILY potassium gluconate 595 mg (99 mg) Tablet 595 mg PO DAILY magnesium oxide 400 mg magnesium Tablet 400 mg PO DAILY Discharge Orders: Discharge ED (Routine); Ordered 09/04/24 Ordered By: Jamal Sims Referrals: Yanely Owens FNP [Primary Care Provider] - Patient Instructions: Abrasion (ED) Activity Restrictions/Additional Instructions: Thank you for choosing [facility] for your healthcare needs today. Please realize that you were seen in the emergency department and that we are providing you with an emergency medical screening exam and this may not be a complete and all exclusive of all testing and/or medical workup we may need to determine your element or severity of your illness. It is very important that you follow-up as instructed with your primary care provider or specialist for the additional evaluation and to discuss your medical treatment plan. You may return to the emergency department should you have concerns or if your condition changes or worsens in any way. Coding Level of Care Code ED Tin Pourer for Marina Daniels
[2024-09-04 03:56] LABS: Basophils # 0.1 10^3/uL (0.0-0.1); Basophils % 0.5 %; Eosinophils % 0.3 %; Hematocrit 42.5 % (37-53); Lymphocytes # 1.7 10^3/uL (0.8-4.8); Mean Corpuscular HGB Conc 32.9 g/dL (30-55); Mean Corpuscular Hemoglobin 31.7 pg (27-33); Mean Corpuscular Volume 96.4 fl (82-101); Mean Platelet Volume 9.1 fL (7.4-10.4); Monocytes # 0.6 10^3/uL (0.2-0.9); Neutrophils # 7.62 10^3/uL (1.8-7.7); Neutrophils % 75.2 %; Nucleated Red Blood Cells % 0 %; Platelet Count 161 10^3/cmm (157-399); Red Blood Count 4.41 10^6/uL (3.85-5.65); Red Cell Distribution Width 14.4 % (12.1-15.1); White Blood Count 10.13 10^3/uL (3.29-11.43)
[2024-09-04] MEDS: sodium chloride 0.9% 1,000 ML 999 ML IV (03:59)
[2024-09-04 04:05] LABS: INR 2.06 (0.8-1.2)
[2024-09-04 04:12] LABS: Alanine Aminotransferase 19 U/L (0-41); Alkaline Phosphatase 111 U/L (40-130); Anion Gap 17.1 (5-19); Aspartate Amino Transferase 31 U/L (0-40); Blood Urea Nitrogen 19 mg/dL (8-23); Carbon Dioxide 22 mmol/L (22-29); Chloride 100 mmol/L (98-107); Creatinine Clr Calc Pharmacy 65.2405; Globulin 2.8 g/dL (1.3-4.6); Glucose 100 mg/dL (65-115); Osmolality Calculated 282 mOsm/kg (285-295); Potassium 4.1 mmol/L (3.5-5.1); Sodium 135 mmol/L (136-145); Total Bilirubin 0.9 mg/dL (0.15-1.2); Total Protein 6.8 g/dL (6.6-8.7)
[2024-09-04 05:15] VITALS: BP 142/103; PULSE 78; O2SAT 98
== END 2024-09-04 05:18 | disposition home or self-care (01) ==
PROVIDERS: Emergency Provider Emergency Medicine; PCP Nurse Practitioner Family
DX: S00.03XA Contusion of scalp, initial encounter (principal); F03.90 Unspecified dementia, unspecified severity, without behavioral disturbance, psychotic disturbance, mood disturbance, and anxiety; Z79.01 Long term (current) use of anticoagulants; Z79.84 Long term (current) use of oral hypoglycemic drugs; Z79.82 Long term (current) use of aspirin; Z87.891 Personal history of nicotine dependence; I25.10 Atherosclerotic heart disease of native coronary artery without angina pectoris; E11.9 Type 2 diabetes mellitus without complications; I10 Essential (primary) hypertension; E78.2 Mixed hyperlipidemia; Z95.1 Presence of aortocoronary bypass graft; W19.XXXA Unspecified fall, initial encounter
CPT/HCPCS: 70450; 80053; 85025; 85610; 99284; J7030

== ENCOUNTER → 2024-09-22 10:32 | Outpatient (BNVA) | payer MEDICARE, MEDICAID, SELFPAY | PROVIDERS: PCP Nurse Practitioner Family; Visit Provider Internal Medicine | DX: Z79.01 Long term (current) use of anticoagulants (principal); R30.0 Dysuria | CPT/HCPCS: 81000; 85610; 87086 ==

== ENCOUNTER → 2024-09-29 11:18 | Outpatient (BNVA) | payer MEDICARE, MEDICAID, SELFPAY | PROVIDERS: PCP Nurse Practitioner Family; Visit Provider Internal Medicine | DX: Z79.01 Long term (current) use of anticoagulants (principal) | CPT/HCPCS: 85610 ==

== ENCOUNTER → 2024-10-06 10:35 | Outpatient (BNVA) | payer MEDICARE, MEDICAID, SELFPAY | PROVIDERS: PCP Nurse Practitioner Family; Visit Provider Internal Medicine | DX: I49.9 Cardiac arrhythmia, unspecified (principal) | CPT/HCPCS: 85610 ==

== ENCOUNTER → 2024-11-04 11:21 | Outpatient (BNVA) | payer MEDICARE, MEDICAID, SELFPAY | PROVIDERS: PCP Nurse Practitioner Family; Visit Provider Internal Medicine | DX: Z79.01 Long term (current) use of anticoagulants (principal) | CPT/HCPCS: 85610 ==

== ENCOUNTER → 2024-11-11 11:34 | Outpatient (BNVA) | payer MEDICARE, MEDICAID, SELFPAY | PROVIDERS: PCP Nurse Practitioner Family; Visit Provider Internal Medicine Cardiovascular Disease | DX: Z79.01 Long term (current) use of anticoagulants (principal) | CPT/HCPCS: 85610 ==

== ENCOUNTER 2024-11-13 13:30 | Inpatient (IN) | payer MEDICARE, MEDICAID, SELFPAY ==
[2024-11-13] VITALS (7 sets, daily range): BP systolic 94–142; BP diastolic 71–87; PULSE 92–130; RESP 16–32; TEMP 36.8; O2SAT 90–96; BMI 24.4
--- NOTE | 2024-11-13 13:33 | XR_ITS ---
WS: [id number] Exam: XR foot RT min 3V* [id number] Date/Time of Exam: 11/13/2024 1:33 PM Reason For Exam: wound No fracture noted. No bone destruction identified. Mild degenerative joint changes. Vascular calcific ation noted about the foot and ankle. Surgical clips along the medial ankle. XR/XR foot RT min 3V* [id number] IMPRESSION: 1. Degenerative changes. No fracture or bone destruction.
--- NOTE | 2024-11-13 14:15 | ECG_ITS ---
[facility] Date: 2024-11-13 Pat Name: Justyn Pedroza Department: Room: Gender: Male Vp Treasurer: : 1950 Requested By: Cortez Haro Order Number: [id number] Rustam MD: Ej Francis M.D. Measurements Intervals [place] Rate: 109 P: 0 NE: 0 QRS: 84 QRSD: 140 T: -44 QT: 328 QTc: 442 Interpretive Statements ATRIAL FIBRILLATION WITH RAPID VENTRICULAR RESPONSE INTRAVENTRICULAR CONDUCTION DELAY [130+ ms QRS DURATION] INFERIOR MYOCARDIAL INFARCTION , OF INDETERMINATE AGE [40+ ms Q WAVE AND/OR ST/T ABNORMALITY IN II/aVF] Compared to ECG 02/08/2024 03:46:41 Intraventricular conduction delay now present Myocardial infarct finding still present Electronically Signed On 11-13-2024 22:06:59 COMMERCIAL PILOT by Ej Francis M.D. [email or web address]
--- NOTE | 2024-11-13 14:15 | XR_ITS ---
WS: [email or web address] Exam: XR chest 1V portable [id number] Date/Time of Exam: 11/13/2024 2:35 PM Reason For Exam: Possible Sepsis Comparison 02/08/2024. The lungs are fully inflated and clear. Mild cardiac enlargement. Signs of previous CABG surgery. No pleural effusions. Bony structures are intact. Advanced degenerative change of both shoulders. XR/XR chest 1V portable [id number] IMPRESSION: 1. Mild cardiac enlargement. No acute finding.
--- NOTE | 2024-11-13 14:16 | ED_ITS ---
HPI - Wound/Laceration 2 General: Chief Complaint: Wound/Laceration Stated Complaint: right foot wound/swelling Time Seen by Provider: 11/13/24 13:37 Source: patient Mode of arrival: ambulatory Limitations: no limitations History of Present Illness: 74-year-old male states family states no ticed wound to his right foot 3 days ago states that it has progressed he now has some drainage from the wound and his entire foot is red and hot. He states he is also developed a fever today and has had some increased confusion. Patient is able to tell me his name but is quite confused. No known injuries to that foot. He is a diabetic. Associated symptoms: Reports fever(s); Denies chills, nausea or vomiting Related Data Home Medications Medication Instructions Recorded Confirmed aspirin 81 mg tablet,delayed 81 mg PO QAM 07/12/22 11/13/24 release ferrous sulfate 325 mg (65 mg 325 mg PO DAILY 07/12/22 11/13/24 iron) tablet (iron) folic acid 1 mg tablet 1 mg PO QAM 07/12/22 11/13/24 magnesium oxide 400 mg PO DAILY 07/12/22 11/13/24 potassium gluconate 595 mg (99 mg) 595 mg PO DAILY 07/12/22 11/13/24 tablet amiodarone 200 mg tablet 200 mg PO DAILY 11/13/24 11/13/24 cholecalciferol (vitamin D3) 50 50 mcg PO DAILY 11/13/24 11/13/24 mcg (2,000 unit) capsule (Vitamin D3) metformin 500 mg tablet,extended 500 mg PO DAILY 11/13/24 11/13/24 release 24 hr Previous Rx's Medication Instructions Recorded blood sugar diagnostic (Accu-Chek #50 ea 03/13/21 Julianna Plus test strips) standard wheelchair #1 ea 05/21/23 metoprolol succinate 50 mg 50 mg PO QAM #90 tabs 01/03/24 tablet,extended release 24 hr warfarin 5 mg tablet 5 mg PO DAILY #90 tabs 02/17/24 nitroglycerin 0.4 mg/hr 1 patch transdermal Q24H #90 ea 05/21/24 transdermal 24 hour patch (Nitro-Dur) enalapril maleate 10 mg tablet 10 mg PO BID #180 tabs 06/01/24 docusate sodium 100 mg capsule 100 mg PO BID PRN constipation 07/30/24 (Colace) #100 caps warfarin 2 mg tablet 2 mg PO DAILY #90 tabs 08/05/24 Allergies Allergy/AdvReac Type Severity Reaction Status Date / Time venlafaxine [From Effexor] Allergy hypertensio Verified 08/11/24 12:53 n Review of Systems 2 Const: Reports: fever(s); Denies: chills or body aches ENMT: Denies: throat pain or dental pain Card: Denies: chest pain Resp: Denies: dyspnea GI: Denies: abdominal pain, nausea, vomiting or diarrhea Musc: Reports: extremity pain; Denies: neck pain or back pain Skin/Breast: Reports: erythema; Denies: rash Neuro: Reports: confusion PFSH ED 2 PFSH: Medical History Tremor Ventricular tachycardia CAD (coronary artery disease) Dementia Chronic anticoagulation Controlled diabetes mellitus Vitamin D deficiency Neuropathic peripheral nerve Iron deficiency Essential (primary) hypertension Mixed hyperlipidemia Atrial fibrillation, chronic Anxiety disorder, unspecified Encounter for therapeutic drug level monitoring Surgical History History of appendectomy 1979 Hx of CABG in 1991 Family History Mother Diabetes Dementia Grandmother Heart disease Paternal Social History Smoking and tobacco/nicotine status: never used tobacco/nicotine Second hand smoke exposure: No Alcohol intake: never Substance/Drug Use: never Adopted: No Caregiver/support person: No Lives independently: Yes Household members: spouse Housing: House Marital status: service: No Current occupational status: retired Do you think of yourself as: Straight/Heterosexual Current gender identity: Male Physical Exam 2 Const: COMMON NORMALS: patient oriented x3 GENERAL APPEARANCE: ill appearing HENMT: COMMON NORMALS: normocephalic and atraumatic HEAD & SCALP: n ormocephalic and atraumatic Eye: COMMON NORMALS: conjunctivae normal CONJUNCTIVA: Yes conjunctivae normal Neck/C-Spine: COMMON NORMALS: full ROM and supple Chest: COMMONS NORMALS: normal inspection of the chest Resp: COMMON NORMALS: normal respiratory effort, No retractions, No use of accessory muscles and clear to auscultation bilaterally AUSCULTATION: clear to auscultation bilaterally Cardio: COMMON NORMALS: regular rhythm RATE: tachycardic RHYTHM: regular rhythm Extremity: COMMON NORMALS: full ROM NARRATIVE EXTREMITY EXAM: Erythema noted to right foot with wound at the base of the great toe distal pulses intact Neuro: COMMON NORMALS: patient oriented x3, moves all extremities and no focal motor deficits Psych: COMMON NORMALS: mental status grossly normal, Normal thought process present and cooperative THOUGHT PROCESS: Normal thought process present Skin: COMMON NORMALS: no rashes or lesions noted GENERAL SKIN EXAM: no rashes or lesions noted Course 2 Vital Signs: Vital signs: Vital Signs Temperature 98.3 F 11/13/24 14:03 Pulse Rate 119 H 11/13/24 15:29 Respiratory Rate 17 11/13/24 14:03 Blood Pressure 142/82 11/13/24 15:29 Pulse Oximetry 95 11/13/24 15:29 Oxygen Delivery Me thod Room Air 11/13/24 15:29 MDM - Wound/Laceration Medical Decision Making Patient presents here with right foot cellulitis patient was seen in the ER by Dr. Corona. He is also altered does have a history dementia and is having A- fib is in A-fib here I spoke to the hospitalist will admit did start IV antibiotics. Medical Records I reviewed the patient's medical records. Lab Data I reviewed the patient's lab results. 11/13/24 14:28 Radiology Impressions Foot X-Ray 11/13/24 13:33 IMPRESSION: 1. Degenerative changes. No fracture or bone destruction. Chest X-Ray 11/13/24 14:15 IMPRESSION: 1. Mild cardiac enlargement. No acute finding. Laboratory Results WBC 17.16 10^3/uL (3.29-11.43) H 11/13/24 14:28 RBC 4.01 10^6/uL (3.85-5.65) 11/13/24 14:28 Hgb 12.50 g/dL (11.27-16.99) 11/13/24 14:28 Hct 38.4 % (37-53) 11/13/24 14:28 MCV 95.8 fl (82-101) 11/13/24 14: MCH 31.2 pg (27-33) 11/13/24 14:28 MCHC 32.6 g/dL (30-55) 11/13/24 14: RDW 13.2 % (12.1-15.1) 11/13/24 14: Plt Count 235 10^3/cmm (157-399) 11/13/24 14: MPV 9.4 fL (7.4-10.4) 11/13/24 14: Neut % (Auto) 85.7 % 11/13/24 14: Lymph % (Auto) 5.0 % 11/13/24 14: [place] % (Auto) 8.1 % 11/13/24 14: Eos % (Auto) 0.2 % 11/13/24 14: Baso % (Auto) 0.2 % 11/13/24 14: Neut # (Auto) 14.70 10^3/uL (1.8-7.7) H 11/13/24 14: Lymph # (Auto) 0.9 10^3/uL (0.8-4.8) 11/13/24 14: [place] # (Auto) 1.4 10^3/uL (0.2-0.9) H 11/13/24 14: Eos # (Auto) 0.0 10^3/uL (0.0-0.8) 11/13/24 14: Baso # (Auto) 0.0 10^3/uL (0.0-0.1) 11/13/24 14: Nucleated RBC % (auto) 0 % 11/13/24 14: Nucleated RBCs # 0.0 /100WBC 11/13/24 14:28 ESR 23 mm/hr (0-10) H 11/13/24 14:28 PT 19.50 SECONDS (12.1-14.9) H 11/13/24 14:28 INR 1.58 (0.8-1.2) H 11/13/24 14:28 Lactic Acid 1.8 mmol/L (0.5-2.2) 11/13/24 14:28 C-Reactive Protein 278.6 mg/L (0.0-4.9) H 11/13/24 14:28 All radiology interpretation(s) finalized by discharge EKG Data EKG 1: I personally reviewed and interpreted this EKG as follows: EKG interpretation date: 11/13/24 EKG interpretation time: 14:43 Interpretation: afib with rvr hr [address] elevation qrs 140 qtc 392 Discharge Plan Discharge Patient Disposition: Admitted As Inpatient Clinical Impression: Cellulitis of right foot, Atrial fibrillation, chronic, Dementia Condition: Stable Prescriptions: No Action (DME) Accu-Chek Julianna Plus test strp Strip See Rx Instructions .ROUTE .MEDSUPPLY Qty: 50 5RF Rx Instructions: 1 strip daily (DME) standard wheelchair See Rx Instructions .Route .MEDSUPPLY Qty: 1 0RF Rx Instructions: As directed docusate sodium [Colace] 100 mg capsule 100 mg PO BID PRN (Reason: constipation) Qty: 100 5RF metoprolol succinate 50 mg tablet extended release 24 hr 50 mg PO QAM Qty: 90 3RF warfarin 5 mg tablet 5 mg PO DAILY Qty: 90 3RF Protocol: Dose Management Condition: Saturday Dose/Route: 2 mg Instruction: 1 x 2 mg tablet Condition: Saturday Dose/Route: 2 mg Instruction: 1 x 2 mg tablet Condition: Saturday Dose/Route: 2 mg Instruction: 1 x 2 mg tablet Condition: Saturday Dose/Route: 2 mg Instruction: 1 x 2 mg tablet Condition: Dose/Route: 3 mg Instruction: 1.5 x 2 mg tablets Condition: Saturday Dose/Route: 2 mg Instruction: 1 x 2 mg tablet Condition: Saturday Dose/Route: 2 mg Instruction: 1 x 2 mg tablet Protocol Text: Adjustment Start Date: Saturday11/04/24 INR Value: 21.80 SECONDS INR Date: 11/04/24 Recheck Date: 11/11/24 nitroglycerin [Nitro-Dur] 0.4 mg/hr patch 24 hour 1 patch TRANSDERMA Q24H Qty: 90 3RF Rx Instructions: allow nitrate-free interval of approx. 10-12 hrs per 24-hour period enalapril maleate 10 mg tablet 10 mg PO BID Qty: 180 3RF warfarin 2 mg tablet 2 mg PO DAILY Qty: 90 2RF Protocol: Dose Management Condition: Saturday Dose/Route: 2 mg Instruction: 1 x 2 mg tablet Condition: Saturday Dose/Route: 2 mg Instruction: 1 x 2 mg tablet Condition: Saturday Dose/Route: 2 mg Instruction: 1 x 2 mg tablet Condition: Saturday Dose/Route: 2 mg Instruction: 1 x 2 mg tablet Condition: Dose/Route: 3 mg Instruction: 1.5 x 2 mg tablets Condition: Saturday Dose/Route: 2 mg Instruction: 1 x 2 mg tablet Condition: Saturday Dose/Route: 2 mg Instruction: 1 x 2 mg tablet Protocol Text: Adjustment Start Date: Saturday11/04/24 INR Value: 21.80 SECONDS INR Date: 11/04/24 Recheck Date: 11/11/24 amiodarone 200 mg tablet 200 mg PO DAILY metformin 500 mg tablet extended release 24 hr 500 mg PO DAILY cholecalciferol (vitamin D3) [Vitamin D3] 50 mcg (2,000 unit) capsule 50 mcg PO DAILY aspirin 81 mg Tablet,Delayed Release (Dr/Ec) 81 mg PO QAM folic acid 1 mg tablet 1 mg PO QAM Rx Instructions: getting over the counter ferrous sulfate [iron] 325 mg (65 mg iron) Tablet 325 mg PO DAILY potassium gluconate 595 mg (99 mg) Tablet 595 mg PO DAILY magnesium oxide 400 mg magnesium Tablet 400 mg PO DAILY Referrals: Yanely Owens, TERRITORY ACCOUNT REPRESENTATIVE [Primary Care Provider] - Coding Level of Care Code ED Bench Worker Binding for Marina Daniels
--- NOTE | 2024-11-13 14:19 | PM.CONSULT ---
Providers/Reason For Consult Consulting Physician/Specialty*: Felix Corona D.P.M. Reason for Consult*: Right foot wound with cellulitis Primary Care Provider: TODD Douglas History of Present Illness History of Present Illness Justyn Pedroza is a 74 year old male presenting with a right foot wound. The condition developed approximately three days ago when the patient reportedly bumped her right foot into a metal bed at home. The patient has a significant past medical history, including type 2 diabetes mellitus, coronary artery disease, atrial fibrillation, cardiomyopathy, and arrhythmia, as well as dementia. The patient's family noted increased aggression and violence, which deviated from her baseline behavior, prompting them to seek medical attention. The wound, located at the medial aspect of the right first metatarsal-phalangeal joint, currently exhibits increased redness and pain, consistent with cellulitis. There has been an increase in erythema and warmth of the right foot. Review of Systems General: Reports: 10 or more systems reviewed and unremarkable except in HPI and below Narrative: - Neurological: Reports aggression and violence, deviating from baseline due to dementia. Const: Denies: fever(s) or chills Eyes: Denies: change in vision Card: Denies: chest pain or palpitations Resp: Denies: dyspnea or productive cough GI: Denies: abdominal pain, nausea or vomiting : Denies: flank pain Musc: Reports: extremity swelling, joint stiffness and deformity Skin/Breast: Reports: erythema, sores, changes in skin color, dry skin, nail changes and change in hair Neuro: Reports: numbness in extremities, sensory changes and difficulty walking Psych: Denies: suicidal ideation Endo: Denies: change in body appearance Ernie/Lymph: Denies: tender lymph nodes Medications/Allergies Home Medications Medication Instructions Recorded Confirmed Last Taken Type blood sugar diagnostic (Accu-Chek #50 ea 03/13/21 11/13/24 Unknown Rx Julianna Plus test strips) aspirin 81 mg tablet,delayed 81 mg PO QAM 07/12/22 11/13/24 08/20/22 07:00 History release ferrous sulfate 325 mg (65 mg 325 mg PO DAILY 07/12/22 11/13/24 08/19/22 08:00 History iron) tablet (iron) folic acid 1 mg tablet 1 mg PO QAM 07/12/22 11/13/24 08/19/22 08:00 History magnesium oxide 400 mg PO DAILY 07/12/22 11/13/24 08/19/22 08:00 History potassium gluconate 595 mg (99 mg) 595 mg PO DAILY 07/12/22 11/13/24 08/19/22 08:00 History tablet standard wheelchair #1 ea 05/21/23 11/13/24 Unknown Rx metoprolol succinate 50 mg 50 mg PO QAM #90 tabs 01/03/24 11/13/24 Unknown Rx tablet,extended release 24 hr warfarin 5 mg tablet 5 mg PO DAILY #90 tabs 02/17/24 11/13/24 Unknown Rx nitroglycerin 0.4 mg/hr 1 patch transdermal Q24H #90 ea 05/21/24 11/13/24 Unknown Rx transdermal 24 hour patch (Nitro-Dur) enalapril maleate 10 mg tablet 10 mg PO BID #180 tabs 06/01/24 11/13/24 Unknown Rx docusate sodium 100 mg capsule 100 mg PO BID PRN constipation 07/30/24 11/13/24 Unknown Rx (Colace) #100 caps warfarin 2 mg tablet 2 mg PO DAILY #90 tabs 08/05/24 11/13/24 Unknown Rx amiodarone 200 mg tablet 200 mg PO DAILY 11/13/24 11/13/24 Unknown History cholecalciferol (vitamin D3) 50 50 mcg PO DAILY 11/13/24 11/13/24 Unknown History mcg (2,000 unit) capsule (Vitamin D3) metformin 500 mg tablet,extended 500 mg PO DAILY 11/13/24 11/13/24 Unknown History release 24 hr Allergies Allergy/AdvReac Type Severity Reaction Status Date / Time venlafaxine [From Effexor] Allergy hypertensio Verified 08/11/24 12:53 n PFSH Acute PFSH: Medical History Tremor Ventricular tachycardia CAD (coronary artery disease) Dementia Chronic anticoagulation Controlled diabetes mellitus Vitamin D deficiency Neuropathic peripheral nerve Iron deficiency Essential (primary) hypertension Mixed hyperlipidemia Atrial fibrillation, chronic Anxiety disorder, unspecified Encounter for therapeutic drug level monitoring Surgical History History of appendectomy 1979 Hx of CABG in 1991 Family History Mother Diabetes Dementia Grandmother Heart disease Paternal Social History Smoking and tobacco/nicotine status: never used tobacco/nicotine Second hand smoke exposure: No Alcohol intake: never Substance/Drug Use: never Adopted: No Caregiver/support person: No Lives independently: Yes Household members: spouse Housing: House Marital status: service: No Current occupational status: retired Do you think of yourself as: Straight/Heterosexual Current gender identity: Male Vitals/I&O/Wt Last Vital Signs Temp 98.3 F 11/13/24 14:03 Pulse 92 11/13/24 14:03 Resp 17 11/13/24 14:03 BP 94/71 11/13/24 14:03 Pulse Ox 96 11/13/24 14:03 O2 Del Method Room Air 11/13/24 14:03 Weight last 48 hrs Weight 180 lb Physical Exam Narrative: - Vascular- Diminished pedal pulses in both feet. Faintly palpable dorsalis pedis and posterior tibial arteries bilaterally with capillary refill time less than 5 seconds to the distal hallux bilaterally. - Neurological- Decreased protective sensation tested with Vieyra YC monofilament to the level of the toes bilaterally. - Dermatological- Wound at the medial aspect of the right first metatarsal-phalangeal joint, measuring 1.3 cm x 1.7 cm x 0.2 cm with exposed fat layer, desquamation, serous-anguinous drainage, eva-wound erythema with cellulitis extending to the ankle. No proximal lymphangitic streaking proximal to the ankle or cellulitis proximal to the ankle. Dystrophic toenails x10 and hyperkeratotic buildup at the plantar forefoot bilaterally. - Musculoskeletal- Tenderness noted at the right foot wound. No crepitus with palpation of soft tissue adjacent to the wound. Const: COMMON NORMALS: no acute distress, patient oriented x3 and alert HENMT: COMMON NORMALS: normocephalic HEAD & SCALP: normocephalic Eye: COMMON NORMALS: Equal, round and reactive pupils present PUPIL: Yes Equal, round and reactive pupils present Resp: COMMON NORMALS: normal respiratory effort, No retractions and No use of accessory muscles Cardio: COMMON NORMALS: regular rate RATE: regular rate Extremity: COMMON NORMALS: no calf tenderness; negative for no pedal edema GENERAL: Yes deformity Neuro: COMMON NORMALS: patient oriented x3 SENSORIUM/ORIENTATION: Yes alert SENSORY EXAM: Yes extremities MONOFILAMENT EXAM PERFORMED: Yes MOTOR EXAM: 5/5 motor strength present throughout Psych: COMMON NORMALS: cooperative Skin: WOUNDS: Yes wounds noted NAILS: discolored, dystrophic and yellow and thickened Data 11/13/24 14:28 A&P Assessment and plan (1) Peripheral arterial disease: (2) T2DM (type 2 diabetes mellitus): Qualifiers: Diabetes mellitus [facility] insulin use: without long term care pharmacist use Diabetes mellitus complication status: without complication Qualified Code(s): E11.9 - Type 2 diabetes mellitus without complications (3) Non-pressure chronic ulcer of other part of right foot with fat layer exposed: PROCEDURE: Full thickness wound debridement Location: Medial aspect of right first metatarsal phalangeal joint Local Anesthesia: none due to neuropathy Consent: Verbal Sterile Prep: with alcohol Details: Full thickness sharp debridement of the wound was performed using sterile dermal curette. The wound was debrided of hyperkeratotic rim and devitalized and fibrotic tissue down to subcutaneous tissue, being the deepest level of debridement. Predebridement measurements: 1.3 cm x 1.7 cm x 0.2 cm Postdebridement measurements: 1.5 cm x 1.8 cm x 0.2 cm Hemostasis: Pressure Irrigation: sterile saline Dressing: Saline wet-to-dry Estimated Blood Loss: minimal Postdebridement wound culture taken of the right foot wound and sent to microbiology for Gram stain culture and sensitivity (4) Cellulitis of right foot: Plan 74-year-old male with history of type 2 diabetes mellitus and peripheral arterial disease presenting with a right foot wound. The wound is associated with cellulitis, likely secondary to trauma consistent with inadvertent injury from bumping into a metal bed. Given the patient's extensive medical history including type 2 diabetes, impaired circulation, and sensory deficits, the current cellulitis is concerning for potential progression without intervention. Imaging and lab findings corroborate the absence of bone involvement or systemic spread at this time. Initial debridement has been performed, and culture obtained to guide targeted antimicrobial therapy. - Labs: White blood cell count 17.6, erythrocyte sedimentation rate 23, C-reactive protein 276.6 mg/L. - Imaging: Right foot X-ray in 3 views shows degenerative changes, no fracture, or bony destruction. No erosive changes consistent with an infectious process or soft tissue emphysema around the wound. No foreign body noted. The patient presents with a right foot wound in the context of multiple comorbidities including type 2 diabetes mellitus and peripheral arterial disease, which suggest a compromised healing environment. The clinical picture is consistent with cellulitis secondary to soft tissue ulceration with bacterial infection. Initial debridement was successfully performed, and a wound culture was obtained to guide further antimicrobial management. Immediate empirical IV antibiotic therapy was recommended due to the risk of rapid progression given the patient's compromised vascular status and neuropathy. Surgical debridement is not considered necessary at this stage but will be reassessed if there are signs of deterioration. Continuous monitoring of both the local wound status and the patient's systemic response is essential, given the complexity of the case. The primary treatment goal is to resolve the cellulitis while preventing further complications, particularly with this patient's background of cardiovascular and neurologic conditions. Consult Attestations Medical Necessity Statement: Requires admission to hospital service with initiation of empiric IV antibiotics for right foot wound with cellulitis in the presence of peripheral arterial disease and diabetes Coding Level of Care Code Acute Code for [facility] Diagnoses Peripheral arterial disease I73.9 Type 2 diabetes mellitus without complication, without long-term current use of insulin E11.9 Diabetes mellitus [facility] insulin use: without [facility] use Diabetes mellitus complication status: without complication Non-pressure chronic ulcer of other part of right foot with fat layer exposed L97.512 Cellulitis of right foot L03.115 Comment CPT code 60826
[2024-11-13] MEDS: sodium chloride 0.9% 2,449.41 ML 2449.41 ML IV (14:39)
[2024-11-13 14:41] LABS: Basophils % 0.2 %; Eosinophils % 0.2 %; Hematocrit 38.4 % (37-53); Lymphocytes # 0.9 10^3/uL (0.8-4.8); Mean Corpuscular HGB Conc 32.6 g/dL (30-55); Mean Corpuscular Hemoglobin 31.2 pg (27-33); Mean Corpuscular Volume 95.8 fl (82-101); Mean Platelet Volume 9.4 fL (7.4-10.4); Monocytes # 1.4 10^3/uL (0.2-0.9); Monocytes % 8.1 %; Neutrophils % 85.7 %; Nucleated Red Blood Cells % 0 %; Platelet Count 235 10^3/cmm (157-399); Red Blood Count 4.01 10^6/uL (3.85-5.65); Red Cell Distribution Width 13.2 % (12.1-15.1); White Blood Count 17.16 10^3/uL (3.29-11.43)
[2024-11-13] MEDS: piperacillin-tazobactam 3.375 GM in sodium chloride 0.9% (plus) 50 ML IV ×2 (14:41→20:39)
[2024-11-13 14:50] LABS: Erythrocyte Sedimentation Rate 23 mm/hr (0-10)
[2024-11-13 14:54] LABS: INR 1.58 (0.8-1.2)
[2024-11-13 14:58] LABS: C Reactive Protein 278.6 mg/L (0.0-4.9); Lactic Sepsis W/Reflex 1.8 mmol/L (0.5-2.2)
[2024-11-13] MEDS: VANCOMYCIN ADD-Vantage 1,000 MG in 0.9% NaCl ADD-Vantage 250 ML 250 MG IV (15:16)
[2024-11-13] MEDS: LORazepam 2 mg/mL INJ 1 mL 1 MG IVP (15:19)
[2024-11-13 16:47] LABS: Alanine Aminotransferase 59 U/L (0-41); Albumin Level 2.7 g/dL (3.5-5.2); Alkaline Phosphatase 62 U/L (40-130); Anion Gap 16.2 (5-19); Aspartate Amino Transferase 63 U/L (0-40); Blood Urea Nitrogen 24 mg/dL (8-23); Calcium 8.2 mg/dL (8.5-10.5); Carbon Dioxide 22 mmol/L (22-29); Chloride 104 mmol/L (98-107); Creatinine Clr Calc Pharmacy 93.5222; Globulin 3.1 g/dL (1.3-4.6); Glucose 122 mg/dL (65-115); Osmolality Calculated 293 mOsm/kg (285-295); Potassium 3.2 mmol/L (3.5-5.1); Sodium 139 mmol/L (136-145); Total Bilirubin 1.6 mg/dL (0.15-1.2); Total Protein 5.8 g/dL (6.6-8.7)
[2024-11-13 17:36] LABS: Estmated Average Glucose 100; Hemoglobin A1C 5.1 % (4.0-6.0)
[2024-11-13] MEDS: enoxaparin 40 mg/0.4 mL Syringe SUBCUT (17:38)
[2024-11-13 17:46] LABS: Thyroid Stimulating Hormone 0.01 uIU/mL (0.27-4.20)
--- NOTE | 2024-11-13 18:04 | PC.NURSE ---
ATTEMPTED TO GIVE 1700 PO MEDS, PT REFUSED AND SPIT MED OUT. PT UNWILLING TO SWALLOW WATER. ATTEMPTED TO CALL DR. CHENG TO INFORM HER OF REFUSAL, SHE DID NOT ANSWER MESSAGE WAS LEFT FOR HER.
[2024-11-13] MEDS: metoprolol tartrate 1 mg/1 mL SDV 5 mL 2.5 MG IVP ×2 (19:26→20:24)
[2024-11-13] MEDS: linezolid premix 600 MG/300 ML PREMIX 300 MG IV (19:29)
[2024-11-13] MEDS: haloperidol inj 5 mg/mL INJ 1 mL IM (20:44)
[2024-11-13 20:59] LABS: Glucose Point of Care 141 mg/dL (70-110)
[2024-11-13] MEDS: amiodarone 200 mg Tablet PO (21:39)
[2024-11-13] MEDS: potassium chloride ER 20 mEq Tablet PO (21:39)
--- NOTE | 2024-11-13 21:56 | P.HP_ITS ---
Providers/Chief Complaint 2 Admitting Physician: Angela Mesa MD Primary Care Provider: TODD Douglas Chief Complaint: right foot wound/swelling History of Present Illness Justyn Pedroza is a 74 year old male with PMH a fib a/c with warfarin, DM, HTN , dementia brought to the ER by his family due to foot cellulitis. Patient sustained injury to the rigth foot 3 days ago, since then the foot has become red. hot and tender. Fever +, chills+. Patient has additionally had behavior disturbances, more aggressive and disoriented than at baseline. Review of Systems 2 General: Reports: ROS unobtainable due to mental status Medications/Allergies Home Medications Medication Instructions Recorded Confirmed Last Taken Type blood sugar diagnostic (Accu-Chek #50 ea 03/13/21 11/13/24 Unknown Rx Julianna Plus test strips) aspirin 81 mg tablet,delayed 81 mg PO QAM 07/12/22 11/13/24 08/20/22 07:00 History release ferrous sulfate 325 mg (65 mg 325 mg PO DAILY 07/12/22 11/13/24 08/19/22 08:00 History iron) tablet (iron) folic acid 1 mg tablet 1 mg PO QAM 07/12/22 11/13/24 08/19/22 08:00 History magnesium oxide 400 mg PO DAILY 07/12/22 11/13/24 08/19/22 08:00 History potassium gluconate 595 mg (99 mg) 595 mg PO DAILY 07/12/22 11/13/24 08/19/22 08:00 History tablet standard wheelchair #1 ea 05/21/23 11/13/24 Unknown Rx metoprolol succinate 50 mg 50 mg PO QAM #90 tabs 01/03/24 11/13/24 Unknown Rx tablet,extended release 24 hr warfarin 5 mg tablet 5 mg PO DAILY #90 tabs 02/17/24 11/13/24 Unknown Rx nitroglycerin 0.4 mg/hr 1 patch transdermal Q24H #90 ea 05/21/24 11/13/24 Unknown Rx transdermal 24 hour patch (Nitro-Dur) enalapril maleate 10 mg tablet 10 mg PO BID #180 tabs 06/01/24 11/13/24 Unknown Rx docusate sodium 100 mg capsule 100 mg PO BID PRN constipation 07/30/24 11/13/24 Unknown Rx (Colace) #100 caps warfarin 2 mg tablet 2 mg PO DAILY #90 tabs 08/05/24 11/13/24 Unknown Rx amiodarone 200 mg tablet 200 mg PO DAILY 11/13/24 11/13/24 Unknown History cholecalciferol (vitamin D3) 50 50 mcg PO DAILY 11/13/24 11/13/24 Unknown History mcg (2,000 unit) capsule (Vitamin D3) metformin 500 mg tablet,extended 500 mg PO DAILY 11/13/24 11/13/24 Unknown History release 24 hr Allergies Allergy/AdvReac Type Severity Reaction Status Date / Time venlafaxine [From Effexor] Allergy hypertensio Verified 08/11/24 12:53 n PFSH Acute 2 PFSH: Medical History Tremor Ventricular tachycardia CAD (coronary artery disease) Dementia Chronic anticoagulation Controlled diabetes mellitus Vitamin D deficiency Neuropathic peripheral nerve Iron deficiency Essential (primary) hypertension Mixed hyperlipidemia Atrial fibrillation, chronic Anxiety disorder, unspecified Encounter for therapeutic drug level monitoring Surgical History History of appendectomy 1979 Hx of CABG in 1991 Family History Mother Diabetes Dementia Grandmother Heart disease Paternal Social History Smoking and tobacco/nicotine status: never used tobacco/nicotine Second hand smoke exposure: No Alcohol intake: never Substance/Drug Use: never Adopted: No Caregiver/support person: No Lives independently: Yes Household members: spouse Housing: House Marital status: service: No Current occupational status: retired Do you think of yourself as: Straight/Heterosexual Current gender identity: Male Vitals/I&O/Wt Last Vital Signs Temp 98.3 F 11/13/24 14:03 Pulse 121 H 11/13/24 20:00 Resp 32 H 11/13/24 20:00 BP 115/81 11/13/24 20:00 Pulse Ox 90 11/13/24 20:00 O2 Del Method Nasal Cannula 11/13/24 20:00 11/13/24 11/13/24 11/13/24 06:59 14:59 22:59 Intake Total 3049.41 / 3049.41 Balance 3049.41 / 3049.41 Weight last 48 hrs Weight 81.647 kg Weight 81.647 kg Physical Exam 2 Narrative: General: No acute distress, AO x1 HEENT: PERRLA, pupils bilaterally equal and reactive, pallors not present Chest: Normal vesicular breath sounds, no added sounds, equal good air entry bilaterally CVS: S1-S2 regular, no murmurs, no tachycardia, no gallops, no rubs Abdomen: Soft, nontender, no organomegaly, bowel sounds present Neuro: Moves all extremities well laying in bed, does not follow commands for direct neurological testing. Data 11/14/24 04:33 11/14/24 04:33 Micro: Microbiology 11/13/24 14:28 Blood Culture - Preliminary Blood SPECIMEN COLLECTED 11/13/24 14:28 Blood Culture - Preliminary Blood SPECIMEN COLLECTED A&P Assessment and plan (1) Cellulitis of right foot: Cellulitis of the right foot, injury sustained 2 days ago. Worsening wound. Currently with elevated white blood cell count, hypotension upon admission, fever, tachycardia concerned that patient could go on to develop sepsis. He has received fluid bolus in the emergency room. Currently blood pressure is 140/97 mmHg. Start empiric antibiotic coverage with piperacillin/tazobactam and linezolid 600 mg IV every 12 hours. Blood cultures taken in the emergency room Appreciate podiatry consult, but has been debrided at bedside. Concerns for underlying abscess at this present time. (2) Atrial fibrillation, chronic: Atrial fibrillation, currently with RVR Patient may not be able to consistently take oral medications Typically on amiodarone and metoprolol at home Will start him on metoprolol 5 mg IV every 4 hours standing medication. If does not respond appropriately will likely need to start amiodarone IV versus digoxin. Chronically anticoagulated with warfarin. Currently subtherapeutic INR at 1.3. Will hold anticoagulation for now in case further surgical intervention is anticipated (3) Chronic anticoagulation: Typically on warfarin, subtherapeutic INR at 1.3 currently. (4) Dementia: Patient has baseline dementia. Family reports worsening of mental status since onset of illness. Likely has encephalopathy from acute infection on top of underlying dementia. CT of the head without any acute abnormalities. Plan History of CHF, ischemic cardiomyopathy. Last known ejection fraction of 30% from 2021. He has received fluid bolus in the emergency room, will hold off on further IV fluids unless necessitated. Currently blood pressure has improved to 140/97 at the time of this assessment. Hold antihypertensives with the exception of metoprolol for now Diabetes mellitus, typically on metformin at home. Insulin low-dose sliding scale for now. Check HbA1c. Hypokalemia: KCl 20 mEq p.o. now DVT prophylaxis: Lovenox 40 mg subcutaneously DNR/DNI as reported by family Attestations 2 Medical Necessity Statement*: Greater than 2 midnight stay is anticipated for IV antibiotics for right cellulitis, received debridement at bedside, will closely need to monitor clinical progress. Coding Level of Care Code Acute Code for [facility] Fwd High MDM includes number and complexity of problems actively addressed during encounter, amount and/or complexity of data reviewed/ordered and described risk of complication, morbidity or mortality of management as documented Diagnoses Cellulitis of right foot L03.115 Atrial fibrillation, chronic I48.20 Chronic anticoagulation Z79.01 Dementia F03.90
[2024-11-13] MEDS: metoprolol tartrate 1 mg/1 mL SDV 5 mL 5 MG IVP (23:41)
[2024-11-13 23:55] LABS: Free T4 Free Thyroxine 3.07 ng/dL (0.82-1.77); T3 Free 1.8 PG/ML (2.0-4.4)
[2024-11-14] VITALS (14 sets, daily range): BP systolic 102–147; BP diastolic 70–95; PULSE 75–133; RESP 20–29; TEMP 36.7–36.9; O2SAT 92–100
[2024-11-14] MEDS: morphine 4 mg/mL SDV 1 mL 2 MG IVP ×3 (01:57→18:02)
[2024-11-14 03:20] LABS: Iron 13 ug/dL (59-158); Percent Saturation 10.8 % (20-50); Total Iron Binding Capacity 120 mcg/dl; Unsaturated Iron Binding 107 ug/dL (112-347)
[2024-11-14] MEDS: metoprolol tartrate 1 mg/1 mL SDV 5 mL 5 MG IVP ×3 (03:28→12:24)
[2024-11-14] MEDS: haloperidol inj 5 mg/mL INJ 1 mL IM ×2 (03:44→20:42)
[2024-11-14] MEDS: piperacillin-tazobactam 3.375 GM in sodium chloride 0.9% (plus) 50 ML IV ×3 (03:46→20:14)
[2024-11-14 04:50] LABS: Basophils # 0.1 10^3/uL (0.0-0.1); Basophils % 0.3 %; Eosinophils % 0.1 %; Hematocrit 36.9 % (37-53); Lymphocytes # 1.4 10^3/uL (0.8-4.8); Lymphocytes % 8.5 %; Mean Corpuscular HGB Conc 32.5 g/dL (30-55); Mean Corpuscular Hemoglobin 31.6 pg (27-33); Mean Corpuscular Volume 97.1 fl (82-101); Mean Platelet Volume 9.3 fL (7.4-10.4); Monocytes # 1.1 10^3/uL (0.2-0.9); Monocytes % 6.8 %; Neutrophils # 13.49 10^3/uL (1.8-7.7); Neutrophils % 83.4 %; Nucleated Red Blood Cells % 0 %; Platelet Count 233 10^3/cmm (157-399); Red Cell Distribution Width 13.4 % (12.1-15.1); White Blood Count 16.17 10^3/uL (3.29-11.43)
[2024-11-14 05:15] LABS: Alanine Aminotransferase 58 U/L (0-41); Albumin Level 3.1 g/dL (3.5-5.2); Alkaline Phosphatase 68 U/L (40-130); Anion Gap 15.6 (5-19); Aspartate Amino Transferase 54 U/L (0-40); Blood Urea Nitrogen 23 mg/dL (8-23); Calcium 8.9 mg/dL (8.5-10.5); Carbon Dioxide 25 mmol/L (22-29); Chloride 104 mmol/L (98-107); Creatinine Clr Calc Pharmacy 93.5222; Globulin 3.4 g/dL (1.3-4.6); Glucose 118 mg/dL (65-115); Osmolality Calculated 297 mOsm/kg (285-295); Potassium 3.6 mmol/L (3.5-5.1); Sodium 141 mmol/L (136-145); Total Bilirubin 1.8 mg/dL (0.15-1.2); Total Protein 6.5 g/dL (6.6-8.7)
[2024-11-14 05:29] LABS: Folate Level 9.2 ng/mL (4.5-32.2)
[2024-11-14] MEDS: linezolid premix 600 MG/300 ML PREMIX 300 MG IV ×2 (06:06→18:03)
[2024-11-14] MEDS: aspirin 81 mg EC Tablet PO (06:06)
[2024-11-14 07:06] LABS: Glucose Point of Care 154 mg/dL (70-110)
--- NOTE | 2024-11-14 10:01 | P.PN_ITS ---
Subjective 2 Subjective: Patient is seen bedside this a.m., has a one-to-one sitter, patient is sleeping, leukocytosis persists. No strikethrough bleeding or drainage of the right foot dressing. Vitals/I&O/Wt Last Vital Signs Temp 98.4 F 11/14/24 07:59 Pulse 128 H 11/14/24 07:59 Resp 24 H 11/14/24 08:24 BP 133/82 11/14/24 07:59 Pulse Ox 93 11/14/24 07:59 O2 Del Method Room Air 11/14/24 07:59 11/13/24 11/14/24 11/14/24 22:59 06:59 14:59 Intake Total 3049.41 / 3049.41 150 / 3199.41 350 / 350 Output Total 0 / 0 Balance 3049.41 / 3049.41 150 / 3199.41 350 / 350 Weight last 48 hrs Weight 180 lb Weight 180 lb Weight 180 lb Physical Exam 2 Narrative: - Vascular- Diminished pedal pulses in b oth feet. Faintly palpable dorsalis pedis and posterior tibial arteries bilaterally with capillary refill time less than 5 seconds to the distal hallux bilaterally. - Neurological- Decreased protective sen sation tested with Vieyra YC monofilament to the level of the toes bilaterally. - Dermatological- Wound at the medial as pect of the right first metatarsal- phalangeal joint, measuring 1.3 cm x 1.7 cm x 0.2 cm with exposed fat layer, desquamation, serous-anguinous drainage, eva-wound erythema with cellulitis extending to the ankle. No proximal lymphangitic streaking proximal to the ankle or cellulitis proximal to the ankle. Dystrophic toenails x10 and hyperkeratotic buildup at the plantar forefoot bilaterally. - Musculoskeletal- Tenderness noted at t he right foot wound. No crepitus with palpation of soft tissue adjacent to the wound. Const: COMMON NORMALS: no acute distress, patient oriented x3 and alert HENMT: COMMON NORMALS: normocephalic HEAD & SCALP: normocephalic Eye: COMMON NORMALS: Equal, round and reactive pupils present PUPIL: Yes Equal, round and reactive pupils present Resp: COMMON NORMALS: normal respiratory effort, No retractions and No use of accessory muscles Cardio: COMMON NORMALS: regular rate RATE: regular rate Extremity: COMMON NORMALS: no calf tenderness; negative for no pedal edema GENERAL: Yes deformity Neuro: COMMON NORMALS: patient oriented x3 SENSORIUM/ORIENTATION: Yes alert SENSORY EXAM: Yes extremities MONOFILAMENT EXAM PERFORMED: Yes MOTOR EXAM: 5/5 motor strength present throughout Psych: COMMON NORMALS: cooperative Skin: WOUNDS: Yes wounds noted NAILS: discolored, dystrophic and yellow and thickened Data 11/15/24 04:29 11/15/24 04:29 Micro: Microbiology 11/13/24 14:28 Blood Culture - Preliminary Blood SPECIMEN COLLECTED 11/13/24 14:28 Blood Culture - Preliminary Blood SPECIMEN COLLECTED A&P Assessment and plan (1) Peripheral arterial disease: (2) T2DM (type 2 diabetes mellitus): Qualifiers: Diabetes mellitus exterminator termite insulin use: without exterminator termite use Diabetes mellitus complication status: without complication Qualified Code(s): E11.9 - Type 2 diabetes mellitus without complications (3) Non-pressure chronic ulcer of other part of right foot with fat layer exposed: (4) Cellulitis of right foot: Plan 74-year-old diabetic male presents with right foot wound with cellulitis Leukocytosis persists Wound cultures pending Clinically there is some improvement with erythema resolving Hydrofera Blue primary dressing followed by [facility] Podiatry will follow Attestations 2 Medical Necessity Statement*: continued need for iv antibiotics, uncontrolled rate Coding Level of Care Code Acute Code for [facility] Diagnoses Peripheral arterial disease I73.9 Type 2 diabetes mellitus without complication, without long-term current use of insulin E11.9 Diabetes mellitus custodial insulin use: without custodial use Diabetes mellitus complication status: without complication Non-pressure chronic ulcer of other part of right foot with fat layer exposed L97.512 Cellulitis of right foot L03.115
--- NOTE | 2024-11-14 10:58 | PC.SLP ---
Attempted cognitive speech therapy evaluation on 11/14/24 at 1030. Pt was reported per nursing staff to be unconscious in a deep medicated sleep. They recommended coming back tomorrow on 11/15/24 to attempt evaluation due to the type of medication given early this morning. Angelica Siddiqui MA, CCC-MEDICAL INVESTIGATOR
[2024-11-14 11:24] LABS: Glucose Point of Care 111 mg/dL (70-110)
--- NOTE | 2024-11-14 12:07 | USCV_ITS ---
Justyn Pedroza Age: 74 Gender: M : 1950 Exam Date: 11/14/2024 15:36 Ordering Phys: Angela Mesa MD Technologist: Tereso Tate Exam Location: [facility] [place] Indication: history of chf BP: 102 / 72 HR: Rhythm: Sinus Technical Quality: Adequate MEASUREMENTS (Male / Female) Normal Values 2D ECHO LV Diastolic Diameter PLAX 5.7 cm 4.2 - 5.9 / 3.9 - 5.3 cm IVS Diastolic Thickness 0.9 cm 0.6 - 1.0 / 0.6 - 0.9 cm IVS Systolic Thickness 0.9 cm LVPW Diastolic Thickness 1.3 cm 0.6 - 1.0 / 0.6 - 0.9 cm LVPW Systolic Thickness 1.7 cm LVOT Diameter 2.0 cm LV Ejection Fraction 2D Teich 30.2 % LV Ejection Fraction MOD 4C 45.2 % LV Ejection Fraction MOD 2C 51.3 % LV Ejection Fraction 2C AL 52.6 % LA Diameter 5.0 cm RA Systolic Volume 4C AL 53.5 ml RA Systolic Volume 4C MOD 55.6 ml Aorta at Sinotubular Diameter 2.8 cm IVC Diameter 2.0 cm M-MODE LA Ao Ratio MM 1.0 AV Cusp Separation MM 1.0 cm FINDINGS Left Ventricle Thinned out and severely hypokinetic septum and the anteroseptal segments. LV ejection fraction of 48%. Mild evaluate LV cavity Right Ventricle Normal right ventricular size. Right Atrium Mildly increased right atrial size. Left Atrium Moderately increased left atrial size. Mitral Valve Moderate mitral annular calcification. Aortic Valve Thickened aortic valve. Tricuspid Valve No gross abnormality noted Pulmonic Valve Pulmonic valve not well visualized. Pericardium No pericardial effusion. Aorta Normal aortic annulus size. IVC Normal IVC dimension with <50% respiratory change of the inferior vena cava. CONCLUSIONS Thinned out and severely hypokinetic septum and the anteroseptal segments. LV ejection fraction of 48%. Mild evaluate LV cavity. Moderately increased left atrial size. Mildly increased right atrial size. Thickened aortic valve. There is no pericardial effusion. There are no intracardiac masses. Compared to the study from 07/12/2022, there is significant improvement of the LV ejection fraction-from from 30% to 48% Dr Jose Franklin MD [facility] (Electronically Signed) Final Date: 15 November 2024 19:39 S
--- NOTE | 2024-11-14 12:08 | ECG_ITS ---
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 Measurements Intervals [place] Rate: 98 P: 0 FL: 0 QRS: 100 QRSD: 137 T: -45 QT: 410 QTc: 525 Interpretive Statements ATRIAL FIBRILLATION BORDERLINE RIGHT AXIS DEVIATION [QRS AXIS > 90] INTRAVENTRICULAR CONDUCTION DELAY [130+ ms QRS DURATION] INFERIOR MYOCARDIAL INFARCTION , OF INDETERMINATE AGE [40+ ms Q WAVE AND/OR ST/T ABNORMALITY IN II/aVF] Compared to ECG 11/13/2024 14:43:07 No significant changes Electronically Signed On 11-15-2024 22:24:01 LINK ASSEMBLER by Jose Franklin M.D. [id number]
--- NOTE | 2024-11-14 12:19 | P.PN_ITS ---
Subjective 2 Subjective: Afebrile, hemodynamically stable. Leukocytosis about the same. He is currently lethargic this morning. Continues to be in A-fib RVR. Heart rate between 90-1 13. Medications: Reviewed: Yes Vitals/I&O/Wt Last Vital Signs Temp 98.4 F 11/14/24 07:59 Pulse 128 H 11/14/24 07:59 Resp 24 H 11/14/24 08:24 BP 133/82 11/14/24 07:59 Pulse Ox 93 11/14/24 07:59 O2 Del Method Room Air 11/14/24 07:59 11/13/24 11/14/24 11/14/24 22:59 06:59 14:59 Intake Total 3049.41 / 3049.41 150 / 3199.41 350 / 350 Output Total 0 / 0 Balance 3049.41 / 3049.41 150 / 3199.41 350 / 350 Weight last 48 hrs Weight 81.647 kg Weight 81.647 kg Weight 81.647 kg Physical Exam 2 Narrative: General: Lethargic, somnolent, winces to pain and turning on bright lights however cannot follow commands. HEENT: PERRLA, pupils bilaterally equal and reactive, pallors not present Chest: Normal vesicular breath sounds, no added sounds, equal good air entry bilaterally CVS: S1-S2 regular, no murmurs, no tachycardia, no gallops, no rubs Abdomen: Soft, nontender, no organomegaly, bowel sounds present Data 11/14/24 04:33 11/14/24 04:33 Micro: Microbiology 11/13/24 14:28 Blood Culture - Preliminary Blood SPECIMEN COLLECTED 11/13/24 14:28 Blood Culture - Preliminary Blood SPECIMEN COLLECTED A&P Assessment and plan (1) Cellulitis of right foot: Cellulitis of the right foot, injury sustained 2 days ago. Worsening wound. Currently with elevated white blood cell count, hypotension upon admission, fever, tachycardia concerned that patient could go on to develop sepsis. He has received fluid bolus in the emergency room. Currently blood pressure is 140/97 mmHg. Start empiric antibiotic coverage with piperacillin/tazobactam and linezolid 600 mg IV every 12 hours. Blood cultures taken in the emergency room Appreciate podiatry consult, but has been debrided at bedside. Concerns for underlying abscess at this present time. (2) Atrial fibrillation, chronic: Atrial fibrillation, currently with RVR Patient may not be able to consistently take oral medications Typically on amiodarone and metoprolol at home Will start him on metoprolol 5 mg IV every 4 hours standing medication. If does not respond appropriately will likely need to start amiodarone IV versus digoxin. Chronically anticoagulated with warfarin. Currently subtherapeutic INR at 1.3. Will hold anticoagulation for now in case further surgical intervention is anticipated (3) Chronic anticoagulation: Typically on warfarin, subtherapeutic INR at 1.3 currently. (4) Dementia: Patient has baseline dementia. Family reports worsening of mental status since onset of illness. Likely has encephalopathy from acute infection on top of underlying dementia. CT of the head without any acute abnormalities. Plan History of CHF, ischemic cardiomyopathy. Last known ejection fraction of 30% from 2021. He has received fluid bolus in the emergency room, will hold off on further IV fluids unless necessitated. Currently blood pressure has improved to 140/97 at the time of this assessment. Hold antihypertensives with the exception of metoprolol for now Diabetes mellitus, typically on metformin at home. Insulin low-dose sliding scale for now. Check HbA1c. Hypokalemia: KCl 20 mEq p.o. now DVT prophylaxis: Lovenox 40 mg subcutaneously DNR/DNI as reported by family 11/14/2024 Patient is lethargic today. He is somnolent. He has received morphine a total of 4 mg since overnight. Additionally received Haldol 2 doses since overnight. This may be contributing to his somnolence. Will reduce morphine frequency to 2 mg IV every [address] head performed yesterday did not show any acute stroke. Will continue IV antibiotics including piperacillin tazobactam and linezolid today. Resume anticoagulation with Lovenox 80 mg subcutaneously every 12 hours. Patient appearing to be clinically dry. Dry parched mucous membranes, dry skin coated tongue. Start gentle IV fluids D5 normal saline at 30 cc an hour. Patient's HbA1c reviewed at ~5. Will obtain echocardiogram to estimate ejection fraction. Previously known from 2021 at 30%. If EF has improved may be able to use IV fluids more generously. Make NPO as high risk of aspiration with reduced mental status. Suspect that increased somnolence and lethargy on top of dementia is related to acute encephalopathy from infection. Digoxin added for rate control. Continue metoprolol 5 mg IV every 4 hours. Reviewed low TSH, low T3, elevated T4. Likely related to hyperthyroidism. Doubt this is contributing to his mental status currently. May be responsible for persistent tachycardia. Unable to use oral methimazole currently. Beta- blockers currently on. Attestations 2 Medical Necessity Statement*: continued need for iv antibiotics, uncontrolled rate Coding Level of Care Code Acute Code for [facility] Diagnoses Cellulitis of right foot L03.115 Atrial fibrillation, chronic I48.20 Chronic anticoagulation Z79.01 Dementia F03.90
[2024-11-14] MEDS: dextrose 5%-sod chloride 0.9% 1,000 ML 30 ML IV (12:25)
[2024-11-14] MEDS: enoxaparin 80 mg/0.8 mL Syringe SUBCUT ×2 (12:25→23:35)
[2024-11-14] MEDS: digoxin 250 mcg/ml INJ 2 mL 500 MCG IVP (12:25)
[2024-11-14 13:04] LABS: Hepatitis A Antibody IgM Non-Reactive (Nonreactive); Hepatitis B Core AB, Total Non-Reactive (Nonreactive); Hepatitis B Surface AB < 3.5 (11.5-1000); Hepatitis B Surface Antigen Non-Reactive (Nonreactive); Hepatitis C Virus Antibody Non-Reactive (Nonreactive)
[2024-11-14 13:19] LABS: Troponin(5th) Baseline 13 ng/L (0-15)
--- NOTE | 2024-11-14 14:36 | ECG_ITS ---
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 Measurements Intervals [place] Rate: 94 P: 0 NV: 0 QRS: 95 QRSD: 138 T: -45 QT: 407 QTc: 510 Interpretive Statements ATRIAL FIBRILLATION BORDERLINE RIGHT AXIS DEVIATION [QRS AXIS > 90] INTRAVENTRICULAR CONDUCTION DELAY [130+ ms QRS DURATION] INFERIOR MYOCARDIAL INFARCTION , OF INDETERMINATE AGE [40+ ms Q WAVE AND/OR ST/T ABNORMALITY IN II/aVF] Compared to ECG 11/14/2024 12:39:12 No significant changes Electronically Signed On 11-15-2024 22:37:30 MANAGER DISCOVERY by Jose Franklin M.D. [id number]
[2024-11-14 15:50] LABS: Troponin 5 2HR 13.61 ng/L (0-15); Troponin 5 2HR Delta 0.61 ABS# (0-10)
[2024-11-14 17:28] LABS: Glucose Point of Care 109 mg/dL (70-110)
--- NOTE | 2024-11-14 17:59 | PC.NURSE ---
Informed Dr Mesa of improved heart rate . Patient more awake. Received orders to not give digoxin dose and to given Metoprolol 2.5mg IVP at this time.
[2024-11-14] MEDS: metoprolol tartrate 1 mg/1 mL SDV 5 mL 2.5 MG IVP (18:11)
--- NOTE | 2024-11-14 18:18 | ECG_ITS ---
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 Measurements Intervals [place] Rate: 83 P: 0 IN: 0 QRS: 66 QRSD: 137 T: -60 QT: 332 QTc: 392 Interpretive Statements ATRIAL FIBRILLATION INTRAVENTRICULAR CONDUCTION DELAY [130+ ms QRS DURATION] POSSIBLE ANTERIOR MYOCARDIAL INFARCTION , OF INDETERMINATE AGE [30 ms Q WAVE IN V3/V4, OR R < 0.2 mV IN V4] INFERIOR MYOCARDIAL INFARCTION , PROBABLY OLD [40+ ms Q WAVE AND/OR ST/T ABNORMALITY IN II/aVF] Compared to ECG 11/14/2024 14:36:40 No significant changes Electronically Signed On 11-15-2024 22:37:33 CHROMOSOMAL DISORDERS COUNSELOR by Jose Franklin M.D. [id number]
[2024-11-14 18:54] LABS: Troponin 5 6HR 12.49 ng/L (0-15)
[2024-11-14 18:57] LABS: Troponin 5 6HR Delta -0.51 ng/L (0-12)
[2024-11-14 20:59] LABS: Glucose Point of Care 118 mg/dL (70-110)
[2024-11-15] VITALS (12 sets, daily range): BP systolic 114–144; BP diastolic 65–90; PULSE 75–102; RESP 18–34; TEMP 36.6–37; O2SAT 90–100
[2024-11-15] MEDS: morphine 4 mg/mL SDV 1 mL 2 MG IVP ×2 (02:23→20:03)
[2024-11-15] MEDS: digoxin 250 mcg/ml INJ 2 mL 125 MCG IVP (02:24)
[2024-11-15] MEDS: piperacillin-tazobactam 3.375 GM in sodium chloride 0.9% (plus) 50 ML IV ×3 (04:46→20:02)
[2024-11-15 05:06] LABS: Basophils % 0.3 %; Eosinophils # 0.1 10^3/uL (0.0-0.8); Eosinophils % 0.5 %; Hematocrit 32.8 % (37-53); Lymphocytes % 10.1 %; Mean Corpuscular HGB Conc 32.3 g/dL (30-55); Mean Corpuscular Hemoglobin 30.7 pg (27-33); Mean Corpuscular Volume 95.1 fl (82-101); Mean Platelet Volume 10.3 fL (7.4-10.4); Monocytes # 0.6 10^3/uL (0.2-0.9); Monocytes % 6.2 %; Neutrophils # 8.08 10^3/uL (1.8-7.7); Nucleated Red Blood Cells % 0 %; Platelet Count 150 10^3/cmm (157-399); Red Blood Count 3.45 10^6/uL (3.85-5.65); Red Cell Distribution Width 13.2 % (12.1-15.1); White Blood Count 9.86 10^3/uL (3.29-11.43)
[2024-11-15 05:28] LABS: Alanine Aminotransferase 39 U/L (0-41); Albumin Level 2.5 g/dL (3.5-5.2); Alkaline Phosphatase 60 U/L (40-130); Anion Gap 13.2 (5-19); Aspartate Amino Transferase 33 U/L (0-40); Blood Urea Nitrogen 16 mg/dL (8-23); Calcium 7.6 mg/dL (8.5-10.5); Carbon Dioxide 26 mmol/L (22-29); Chloride 108 mmol/L (98-107); Creatinine Clr Calc Pharmacy 93.5222; Globulin 2.3 g/dL (1.3-4.6); Glucose 104 mg/dL (65-115); Osmolality Calculated 299 mOsm/kg (285-295); Potassium 3.2 mmol/L (3.5-5.1); Sodium 144 mmol/L (136-145); Total Bilirubin 1.3 mg/dL (0.15-1.2); Total Protein 4.8 g/dL (6.6-8.7)
[2024-11-15] MEDS: linezolid premix 600 MG/300 ML PREMIX 300 MG IV ×2 (06:23→18:46)
[2024-11-15 06:25] LABS: Glucose Point of Care 93 mg/dL (70-110)
--- NOTE | 2024-11-15 09:40 | P.PN_ITS ---
Subjective 2 Subjective: Patient seen bedside this a.m., is more alert. Vitals/I&O/Wt Last Vital Signs Temp 98.0 F 11/15/24 08:00 Pulse 80 11/15/24 08:00 Resp 24 H 11/15/24 08:00 BP 122/69 11/15/24 08:00 Pulse Ox 94 11/15/24 07:34 O2 Del Method Room Air 11/15/24 07:34 11/14/24 11/15/24 11/15/24 22:59 06:59 14:59 Intake Total 350 / 700 50 / 750 Output Total 500 / 500 Balance -150 / 200 50 / 250 Weight last 48 hrs Weight 180 lb Weight 180 lb Weight 180 lb Weight 180 lb Physical Exam 2 Narrative: - Vascular- Diminished pedal pulses in b oth feet. Faintly palpable dorsalis pedis and posterior tibial arteries bilaterally with capillary refill time less than 5 seconds to the distal hallux bilaterally. - Neurological- Decreased protective sen sation tested with Vieyra YC monofilament to the level of the toes bilaterally. - Dermatological- Wound at the medial as pect of the right first metatarsal- phalangeal joint, measuring 1.3 cm x 1.7 cm x 0.2 cm with exposed fat layer, desquamation, no drainage, nearly resolved erythema and cellulitis to the right foot. Toenails 1, 2, 3, 4, 5 left and right foot are elongated, thickened and discolored with subungual debris. Lower extremity integument is atrophic with decreased texture and turgor, has thin shiny appearance. Hyperkeratotic buildup plantar feet. - Musculoskeletal- Tenderness noted at t he right foot wound. No crepitus with palpation of soft tissue adjacent to the wound. Data 11/15/24 04:29 11/15/24 04:29 Micro: Microbiology 11/13/24 14:31 Wound Culture - Preliminary Toe - #1 Coag positive Staphylococcus 11/13/24 14:28 Blood Culture - Preliminary Blood NEGATIVE TO DATE 11/13/24 14:28 Blood Culture - Preliminary Blood NEGATIVE TO DATE A&P Assessment and plan (1) Peripheral arterial disease: (2) T2DM (type 2 diabetes mellitus): Qualifiers: Diabetes mellitus parts counterman insulin use: without parts counterman use Diabetes mellitus complication status: without complication Qualified Code(s): E11.9 - Type 2 diabetes mellitus without complications (3) Non-pressure chronic ulcer of other part of right foot with fat layer exposed: (4) Cellulitis of right foot: Plan 74-year-old diabetic male presents with right foot wound with cellulitis Patient is afebrile, no leukocytosis Right foot wound culture significant for coag positive Staphylococcus Resolved cellulitis to the right foot, very minimal residual periwound erythema to the right foot Hydrofera Blue primary dressing followed by Kerlix Clinically improving wound to the right foot, continuing empiric antibiotics for now, awaiting sensitivities from culture. Would benefit from oral antibiotic course at discharge, recommend wound care clinic follow-up after this hospitalization. Podiatry will follow Attestations 2 Medical Necessity Statement*: continued need for iv antibiotics, uncontrolled rate Coding Level of Care Code Acute Code for g Fwd Diagnoses Peripheral arterial disease I73.9 Type 2 diabetes mellitus without complication, without long-term current use of insulin E11.9 Diabetes mellitus parts counterman insulin use: without skilled nursing use Diabetes mellitus complication status: without complication Non-pressure chronic ulcer of other part of right foot with fat layer exposed L97.512 Cellulitis of right foot L03.115
[2024-11-15] MEDS: lidocaine 1% 5 ML in potassium chloride premix 100 ML 52.5 ML IV (10:39)
[2024-11-15 11:39] LABS: Glucose Point of Care 118 mg/dL (70-110)
[2024-11-15] MEDS: enoxaparin 80 mg/0.8 mL Syringe SUBCUT ×2 (13:35→23:43)
[2024-11-15] MEDS: dextrose 5%-sod chloride 0.9% 1,000 ML 30 ML IV (13:36)
--- NOTE | 2024-11-15 15:41 | P.PN_ITS ---
Subjective 2 Subjective: Better today. He is more alert, speaks in simple sentences such as can you help me put the covers back , I did not mean to do that , following commands, however still noted to be aspirating with attempting oral intake. Continuing to be n.p.o. per speech therapy recommendation. HR better controlled today. Medications: Reviewed: Yes Vitals/I&O/Wt Last Vital Signs Temp 98.0 F 11/15/24 12:00 Pulse 75 11/15/24 12:00 Resp 28 H 11/15/24 12:00 BP 144/72 11/15/24 12:00 Pulse Ox 97 11/15/24 12:00 O2 Del Method Room Air 11/15/24 12:00 11/15/24 11/15/24 11/15/24 06:59 14:59 22:59 Intake Total 50 / 750 1210.5 / 1210.5 Balance 50 / 250 1210.5 / 1210.5 Weight last 48 hrs Weight 81.647 kg Weight 81.647 kg Weight 81.647 kg Physical Exam 2 Narrative: General: more awake, able to have a conversation HEENT: PERRLA, pupils bilaterally equal and reactive, pallors not present Chest: Normal vesicular breath sounds, no added sounds, equal good air entry bilaterally CVS: S1-S2 regular, no murmurs, no tachycardia, no gallops, no rubs Abdomen: Soft, nontender, no organomegaly, bowel sounds present Data 11/15/24 04:29 11/15/24 04:29 Micro: Microbiology 11/13/24 14:31 Wound Culture - Preliminary Toe - #1 Coag positive Staphylococcus 11/13/24 14:28 Blood Culture - Preliminary Blood NEGATIVE TO DATE 11/13/24 14:28 Blood Culture - Preliminary Blood NEGATIVE TO DATE A&P Assessment and plan (1) Cellulitis of right foot: Cellulitis of the right foot, injury sustained 2 days ago. Worsening wound. Currently with elevated white blood cell count, hypotension upon admission, fever, tachycardia concerned that patient could go on to develop sepsis. He has received fluid bolus in the emergency room. Currently blood pressure is 140/97 mmHg. Start empiric antibiotic coverage with piperacillin/tazobactam and linezolid 600 mg IV every 12 hours. Blood cultures taken in the emergency room Appreciate podiatry consult, but has been debrided at bedside. Concerns for underlying abscess at this present time. (2) Atrial fibrillation, chronic: Atrial fibrillation, currently with RVR Patient may not be able to consistently take oral medications Typically on amiodarone and metoprolol at home Will start him on metoprolol 5 mg IV every 4 hours standing medication. If does not respond appropriately will likely need to start amiodarone IV versus digoxin. Chronically anticoagulated with warfarin. Currently subtherapeutic INR at 1.3. Will hold anticoagulation for now in case further surgical intervention is anticipated (3) Chronic anticoagulation: Typically on warfarin, subtherapeutic INR at 1.3 currently. (4) Dementia: Patient has baseline dementia. Family reports worsening of mental status since onset of illness. Likely has encephalopathy from acute infection on top of underlying dementia. CT of the head without any acute abnormalities. Plan History of CHF, ischemic cardiomyopathy. Last known ejection fraction of 30% from 2021. He has received fluid bolus in the emergency room, will hold off on further IV fluids unless necessitated. Currently blood pressure has improved to 140/97 at the time of this assessment. Hold antihypertensives with the exception of metoprolol for now Diabetes mellitus, typically on metformin at home. Insulin low-dose sliding scale for now. Check HbA1c. Hypokalemia: KCl 20 mEq p.o. now DVT prophylaxis: Lovenox 40 mg subcutaneously DNR/DNI as reported by family 11/14/2024 Patient is lethargic today. He is somnolent. He has received morphine a total of 4 mg since overnight. Additionally received Haldol 2 doses since overnight. This may be contributing to his somnolence. Will reduce morphine frequency to 2 mg IV every [address] head performed yesterday did not show any acute stroke. Will continue IV antibiotics including piperacillin tazobactam and linezolid today. Resume anticoagulation with Lovenox 80 mg subcutaneously every 12 hours. Patient appearing to be clinically dry. Dry parched mucous membranes, dry skin coated tongue. Start gentle IV fluids D5 normal saline at 30 cc an hour. Patient's HbA1c reviewed at ~5. Will obtain echocardiogram to estimate ejection fraction. Previously known from 2021 at 30%. If EF has improved may be able to use IV fluids more generously. Make NPO as high risk of aspiration with reduced mental status. Suspect that increased somnolence and lethargy on top of dementia is related to acute encephalopathy from infection. Digoxin added for rate control. Continue metoprolol 5 mg IV every 4 hours. Reviewed low TSH, low T3, elevated T4. Likely related to hyperthyroidism. Doubt this is contributing to his mental status currently. May be responsible for persistent tachycardia. Unable to use oral methimazole currently. Beta- blockers currently on. 11/15/2024. Patient is more awake today. He is able to have a simple conversation. Heart rate is better controlled. Continue metoprolol 5 mg IV every 6 hours.. Attempted speech and swallow evaluation today however was noted to be aspirating therefore continues to be NPO. Leukocytosis has resolved. Right foot cellulitis is improving. Continue IV antibiotics next 24 hours. His wound culture thus far showing coag positive staph, likely Staph aureus, pending final identification as to MSSA versus MRSA to decide discharge antibiotics. Attestations 2 Medical Necessity Statement*: continue IV antibiotics. Awaiting improvement in mental status to resume p.o. intake, reliably take oral antibiotics, awaiting wound culture. Coding Level of Care Code Acute Code for Chg Fwd High MDM includes number and complexity of problems actively addressed during encounter, amount and/or complexity of data reviewed/ordered and described risk of complication, morbidity or mortality of management as documented Diagnoses Cellulitis of right foot L03.115 Atrial fibrillation, chronic I48.20 Chronic anticoagulation Z79.01 Dementia F03.90
[2024-11-15 17:13] LABS: Glucose Point of Care 135 mg/dL (70-110)
[2024-11-15] MEDS: metoprolol tartrate 1 mg/1 mL SDV 5 mL 5 MG IVP ×2 (17:30→22:12)
[2024-11-15 21:20] LABS: Glucose Point of Care 134 mg/dL (70-110)
[2024-11-15] MEDS: haloperidol inj 5 mg/mL INJ 1 mL IM (22:12)
[2024-11-16] VITALS (8 sets, daily range): BP systolic 136–146; BP diastolic 75–94; PULSE 75–102; RESP 16–36; TEMP 36.4–37.4; O2SAT 94–98
[2024-11-16 03:45] LABS: Basophils % 0.4 %; Eosinophils # 0.1 10^3/uL (0.0-0.8); Eosinophils % 0.5 %; Lymphocytes % 10.9 %; Mean Corpuscular HGB Conc 32.4 g/dL (30-55); Mean Corpuscular Hemoglobin 31.3 pg (27-33); Mean Corpuscular Volume 96.6 fl (82-101); Mean Platelet Volume 9.6 fL (7.4-10.4); Monocytes # 0.5 10^3/uL (0.2-0.9); Monocytes % 5.1 %; Neutrophils # 7.61 10^3/uL (1.8-7.7); Neutrophils % 81.3 %; Nucleated Red Blood Cells % 0 %; Platelet Count 177 10^3/cmm (157-399); Red Blood Count 3.52 10^6/uL (3.85-5.65); Red Cell Distribution Width 13.3 % (12.1-15.1); White Blood Count 9.37 10^3/uL (3.29-11.43)
[2024-11-16] MEDS: metoprolol tartrate 1 mg/1 mL SDV 5 mL 5 MG IVP ×4 (03:59→21:13)
[2024-11-16] MEDS: piperacillin-tazobactam 3.375 GM in sodium chloride 0.9% (plus) 50 ML IV ×3 (04:00→21:11)
[2024-11-16 04:28] LABS: Alanine Aminotransferase 30 U/L (0-41); Albumin Level 2.4 g/dL (3.5-5.2); Alkaline Phosphatase 63 U/L (40-130); Anion Gap 13.2 (5-19); Aspartate Amino Transferase 23 U/L (0-40); Blood Urea Nitrogen 16 mg/dL (8-23); Calcium 7.9 mg/dL (8.5-10.5); Carbon Dioxide 27 mmol/L (22-29); Chloride 105 mmol/L (98-107); Creatinine Clr Calc Pharmacy 86.7104; Globulin 3.1 g/dL (1.3-4.6); Glucose 106 mg/dL (65-115); Osmolality Calculated 296 mOsm/kg (285-295); Potassium 3.2 mmol/L (3.5-5.1); Sodium 142 mmol/L (136-145); Total Bilirubin 1.4 mg/dL (0.15-1.2); Total Protein 5.5 g/dL (6.6-8.7)
[2024-11-16] MEDS: linezolid premix 600 MG/300 ML PREMIX 300 MG IV (06:16)
[2024-11-16 06:34] LABS: Glucose Point of Care 110 mg/dL (70-110)
[2024-11-16] MEDS: ketorolac 30 mg/mL INJ 15 MG IVP ×2 (11:10→21:13)
[2024-11-16] MEDS: enoxaparin 80 mg/0.8 mL Syringe 70 MG SUBCUT (11:21)
[2024-11-16 11:31] LABS: Glucose Point of Care 126 mg/dL (70-110)
--- NOTE | 2024-11-16 11:41 | P.PN_ITS ---
Subjective 2 Subjective: Leukocytosis remains resolved. Tmax 99.3. Wound culture identified as MSSA. Patient continues to be lethargic on and off. Has not been awake enough today to reattempt oral feeding. Medications: Reviewed: Yes Vitals/I&O/Wt Last Vital Signs Temp 99.3 F 11/16/24 09:07 Pulse 81 11/16/24 08:57 Resp 16 11/16/24 08:57 BP 136/75 11/16/24 08:57 Pulse Ox 97 11/16/24 08:57 O2 Del Method Room Air 11/16/24 08:57 11/15/24 11/16/24 11/16/24 22:59 06:59 14:59 Intake Total 350 / 1560.5 50 / 1610.5 350 / 350 Balance 350 / 1560.5 50 / 1610.5 350 / 350 Weight last 48 hrs Weight 67.222 kg Weight 81.647 kg Physical Exam 2 Narrative: General: No acute distress, AO x3 HEENT: PERRLA, pupils bilaterally equal and reactive, pallors not present Chest: Normal vesicular breath sounds, no added sounds, equal good air entry bilaterally CVS: S1-S2 regular, no murmurs, no tachycardia, no gallops, no rubs Abdomen: Soft, nontender, no organomegaly, bowel sounds present Neuro: No focal deficits, no facial deformity, AO x3, power 5/5 in all limbs Extremities: dressing over right foot Data 11/16/24 03:25 11/16/24 03:25 Micro: Microbiology 11/13/24 14:31 Wound Culture - Final Toe - #1 Staphylococcus aureus A&P Assessment and plan (1) Cellulitis of right foot: Cellulitis of the right foot, injury sustained 2 days ago. Worsening wound. Currently with elevated white blood cell count, hypotension upon admission, fever, tachycardia concerned that patient could go on to develop sepsis. He has received fluid bolus in the emergency room. Currently blood pressure is 140/97 mmHg. Start empiric antibiotic coverage with piperacillin/tazobactam and linezolid 600 mg IV every 12 hours. Blood cultures taken in the emergency room Appreciate podiatry consult, but has been debrided at bedside. Concerns for underlying abscess at this present time. (2) Atrial fibrillation, chronic: Atrial fibrillation, currently with RVR Patient may not be able to consistently take oral medications Typically on amiodarone and metoprolol at home Will start him on metoprolol 5 mg IV every 4 hours standing medication. If does not respond appropriately will likely need to start amiodarone IV versus digoxin. Chronically anticoagulated with warfarin. Currently subtherapeutic INR at 1.3. Will hold anticoagulation for now in case further surgical intervention is anticipated (3) Chronic anticoagulation: Typically on warfarin, subtherapeutic INR at 1.3 currently. (4) Dementia: Patient has baseline dementia. Family reports worsening of mental status since onset of illness. Likely has encephalopathy from acute infection on top of underlying dementia. CT of the head without any acute abnormalities. Plan History of CHF, ischemic cardiomyopathy. Last known ejection fraction of 30% from 2021. He has received fluid bolus in the emergency room, will hold off on further IV fluids unless necessitated. Currently blood pressure has improved to 140/97 at the time of this assessment. Hold antihypertensives with the exception of metoprolol for now Diabetes mellitus, typically on metformin at home. Insulin low-dose sliding scale for now. Check HbA1c. Hypokalemia: KCl 20 mEq p.o. now DVT prophylaxis: Lovenox 40 mg subcutaneously DNR/DNI as reported by family 11/14/2024 Patient is lethargic today. He is somnolent. He has received morphine a total of 4 mg since overnight. Additionally received Haldol 2 doses since overnight. This may be contributing to his somnolence. Will reduce morphine frequency to 2 mg IV every [address] head performed yesterday did not show any acute stroke. Will continue IV antibiotics including piperacillin tazobactam and linezolid today. Resume anticoagulation with Lovenox 80 mg subcutaneously every 12 hours. Patient appearing to be clinically dry. Dry parched mucous membranes, dry skin coated tongue. Start gentle IV fluids D5 normal saline at 30 cc an hour. Patient's HbA1c reviewed at ~5. Will obtain echocardiogram to estimate ejection fraction. Previously known from 2021 at 30%. If EF has improved may be able to use IV fluids more generously. Make NPO as high risk of aspiration with reduced mental status. Suspect that increased somnolence and lethargy on top of dementia is related to acute encephalopathy from infection. Digoxin added for rate control. Continue metoprolol 5 mg IV every 4 hours. Reviewed low TSH, low T3, elevated T4. Likely related to hyperthyroidism. Doubt this is contributing to his mental status currently. May be responsible for persistent tachycardia. Unable to use oral methimazole currently. Beta- blockers currently on. 11/15/2024. Patient is more awake today. He is able to have a simple conversation. Heart rate is better controlled. Continue metoprolol 5 mg IV every 6 hours.. Attempted speech and swallow evaluation today however was noted to be aspirating therefore continues to be NPO. Leukocytosis has resolved. Right foot cellulitis is improving. Continue IV antibiotics next 24 hours. His wound culture thus far showing coag positive staph, likely Staph aureus, pending final identification as to MSSA versus MRSA to decide discharge antibiotics. 11/16/24: D/c linezolid as MSSA on wound cx. Patient is lethargic again this morning. We will hold all doses of morphine and Ativan. Using Toradol and IV Tylenol for pain management instead. Attempt to have patient be as awake as possible to be able to undergo speech therapy assessment to assess if he will be safe to eat and take p.o. medications. Check respiratory viral panel, Tmax 99.3. INR low. Start overlap with Lovenox. Goal to start Lovenox once INR has reached 2.0. Attestations 2 Medical Necessity Statement*: Continue IV antibiotics, need for further speech therapy assessment, mentation is not currently back to baseline, start bridging anticoagulation Coding Level of Care Code Acute Code for Chg Fwd Diagnoses Cellulitis of right foot L03.115 Atrial fibrillation, chronic I48.20 Chronic anticoagulation Z79.01 Dementia F03.90
--- NOTE | 2024-11-16 11:55 | XRR_ITS ---
PROCEDURE INFORMATION: Exam: XR Chest Exam date and time: 11/16/2024 12:30 PM Age: 74 years old Clinical indication: Shortness of breath; Additional info: Assess for edema TECHNIQUE: Imaging protocol: Radiologic exam of the chest. Views: 1 view. COMPARISON: CR XR chest 1V portable [id number] 11/13/2024 2:47 PM FINDINGS: Lungs: Bronchovascular prominence with interstitial and airspace opacities bilaterally. Pleural spaces: No significant pleural effusion. No definitive pneumothorax. Heart/Mediastinum: The cardiomediastinal silhouette is enlarged and stable. Vasculature: Calcification of the aortic arch. Bones/joints: Median sternotomy wires are in place. Bilateral shoulder arthritis. XR/XR chest 1V portable [id number] IMPRESSION: Cardiomegaly with mild bronchovascular prominence and patchy ground-glass/interstitial opacities suggest mild pulmonary vascular congestion.
[2024-11-16 12:32] LABS: NT Pro B Type Natriuretic Pept 5856 pg/mL (0-125)
[2024-11-16] MEDS: acetaminophen 1,000 MG/100 ML PIGGYBACK 400 MG IV (12:32)
[2024-11-16 13:56] LABS: Adenovirus Not Detected (NOT DETECT); Chlamydia Pneumoniae Not Detected (NOT DETECT); Coronavirus 229E,HKU1,NL63,OC4 Not Detected (NOT DETECT); Human Metapneumovirus Not Detected (NOT DETECT); Human Rhinovirus/Enterovirus Not Detected (NOT DETECT); Influenza A Not Detected (NOT DETECT); Influenza A H1 Not Detected (NOT DETECT); Influenza A H1-2009 Not Detected (NOT DETECT); Influenza A H3 Not Detected (NOT DETECT); Influenza B Not Detected (NOT DETECT); Mycoplasma Pneumoniae Not Detected (NOT DETECT); Parainfluenza Virus Type 1 Not Detected (NOT DETECT); Parainfluenza Virus Type 2 Not Detected (NOT DETECT); Parainfluenza Virus Type 3 Not Detected (NOT DETECT); Parainfluenza Virus Type 4 Not Detected (NOT DETECT); Respiratory Syncytial Virus A Not Detected (NOT DETECT); Respiratory Syncytial Virus B Not Detected (NOT DETECT); SARS-COV-2 Not Detected (NOT DETECT)
[2024-11-16 16:26] LABS: Glucose Point of Care 96 mg/dL (70-110)
[2024-11-16 20:48] LABS: Glucose Point of Care 90 mg/dL (70-110)
--- NOTE | 2024-11-16 22:04 | PC.NURSE ---
Spoke with regarding patient becoming very agitated, yelling out, started pulling at IV lines and trying to get OOB. The patient had been previously medicated for pain with IV Toradol prior to dressing change of right foot. PLANT CLERK is currently sitting with patient for safety. gaveorder for 1x dose of Haldol IM for aggitation.
[2024-11-16] MEDS: haloperidol inj 5 mg/mL INJ 1 mL IM (22:38)
[2024-11-17] VITALS (11 sets, daily range): BP systolic 118–156; BP diastolic 74–96; PULSE 74–113; RESP 24–40; TEMP 36.8–37.8; O2SAT 89–99
[2024-11-17] MEDS: enoxaparin 80 mg/0.8 mL Syringe 70 MG SUBCUT ×2 (00:09→12:53)
[2024-11-17] MEDS: piperacillin-tazobactam 3.375 GM in sodium chloride 0.9% (plus) 50 ML IV ×3 (04:09→21:59)
[2024-11-17] MEDS: metoprolol tartrate 1 mg/1 mL SDV 5 mL 5 MG IVP ×4 (04:09→22:00)
[2024-11-17 04:50] LABS: INR 1.79 (0.8-1.2)
[2024-11-17 06:41] LABS: Glucose Point of Care 79 mg/dL (70-110)
[2024-11-17] MEDS: pantoprazole DR 40 mg Tablet PO (09:23)
--- NOTE | 2024-11-17 10:42 | PC.NURSE ---
pt is more awake this morning. able to follow commands. He is able to take spoonful bites of pudding and drink water with a straw. Dr Mcdonald at bedside and updated on pt's mentation status.
[2024-11-17 11:29] LABS: Glucose Point of Care 67 mg/dL (70-110)
[2024-11-17] MEDS: dextrose 10% 125 ML 750 ML IV (12:55)
[2024-11-17 13:29] LABS: Glucose Point of Care 100 mg/dL (70-110)
--- NOTE | 2024-11-17 13:32 | P.PN_ITS ---
Subjective 2 Subjective: Patient seen bedside this afternoon, was sleeping and remained asleep during the room, normal respiration rate observed. Vitals/I&O/Wt Last Vital Signs Temp 98.2 F 11/17/24 11:54 Pulse 95 11/17/24 11:54 Resp 35 H 11/17/24 11:54 BP 128/74 11/17/24 11:54 Pulse Ox 92 11/17/24 11:54 O2 Del Method Room Air 11/17/24 11:54 11/16/24 11/17/24 11/17/24 22:59 06:59 14:59 Intake Total 943.5 / 1393.5 170 / 1563.5 150 / 150 Balance 943.5 / 1393.5 170 / 1563.5 150 / 150 Weight last 48 hrs Weight 160 lb 11.2 oz Weight 148 lb 3.2 oz Physical Exam 2 Narrative: - Vascular- Diminished pedal pulses in b oth feet. Faintly palpable dorsalis pedis and posterior tibial arteries bilaterally with capillary refill time less than 5 seconds to the distal hallux bilaterally. - Neurological- Decreased protective sen sation tested with Vieyra YC monofilament to the level of the toes bilaterally. - Dermatological- Wound at the medial as pect of the right first metatarsal- phalangeal joint, measuring 1.3 cm x 1.7 cm x 0.2 cm with exposed fat layer, desquamation, no drainage, nearly resolved erythema and cellulitis to the right foot. Toenails 1, 2, 3, 4, 5 left and right foot are elongated, thickened and discolored with subungual debris. Lower extremity integument is atrophic with decreased texture and turgor, has thin shiny appearance. Hyperkeratotic buildup plantar feet. - Musculoskeletal- Tenderness noted at t he right foot wound. No crepitus with palpation of soft tissue adjacent to the wound. Clinical image from 11/13/2024 Clinical image taken 11/17/2024 Const: COMMON NORMALS: no acute distress, patient oriented x3 and alert HENMT: COMMON NORMALS: normocephalic HEAD & SCALP: normocephalic Eye: COMMON NORMALS: Equal, round and reactive pupils present PUPIL: Yes Equal, round and reactive pupils present Resp: COMMON NORMALS: normal respiratory effort, No retractions and No use of accessory muscles Cardio: COMMON NORMALS: regular rate RATE: regular rate Extremity: COMMON NORMALS: no calf tenderness; negative for no pedal edema GENERAL: Yes deformity Neuro: COMMON NORMALS: patient oriented x3 SENSORIUM/ORIENTATION: Yes alert SENSORY EXAM: Yes extremities MONOFILAMENT EXAM PERFORMED: Yes MOTOR EXAM: 5/5 motor strength present throughout Psych: COMMON NORMALS: cooperative Skin: WOUNDS: Yes wounds noted NAILS: discolored, dystrophic and yellow and thickened Data 11/16/24 03:25 11/16/24 03:25 A&P Assessment and plan (1) Peripheral arterial disease: (2) T2DM (type 2 diabetes mellitus): Qualifiers: Diabetes mellitus group home insulin use: without supervisor intermediates use Diabetes mellitus complication status: without complication Qualified Code(s): E11.9 - Type 2 diabetes mellitus without complications (3) Non-pressure chronic ulcer of other part of right foot with fat layer exposed: (4) Cellulitis of right foot: Plan 74-year-old diabetic male presents with right foot wound with cellulitis Patient is afebrile, no leukocytosis Right foot wound culture significant for coag positive Staphylococcus Resolved cellulitis to the right foot, improving periwound erythema to the right foot Hydrofera Blue primary dressing followed by Denise, nursing staff to perform once daily dressing change Clinically improving wound to the right foot, continuing empiric antibiotics for now, awaiting sensitivities from culture. Would benefit from oral antibiotic course at discharge, recommend wound care clinic follow-up after this hospitalization. Podiatry will follow Attestations 2 Medical Necessity Statement*: Continue IV antibiotics, need for further speech therapy assessment, mentation is not currently back to baseline, start bridging anticoagulation Coding Level of Care Code Acute Code for g Fwd Diagnoses Peripheral arterial disease I73.9 Type 2 diabetes mellitus without complication, without long-term current use of insulin E11.9 Diabetes mellitus group home insulin use: without group home use Diabetes mellitus complication status: without complication Non-pressure chronic ulcer of other part of right foot with fat layer exposed L97.512 Cellulitis of right foot L03.115
--- NOTE | 2024-11-17 13:38 | P.PN_ITS ---
Subjective 2 Subjective: Seen this morning. Patient is confused. Alert awake however unable to tell me his name. Nursing staff present at bedside. INR 1.79 this morning. Patient has had waxing waning mentation and has not received warfarin and other oral medications as directed secondary to altered mental status and difficulty swallowing. Vitals/I&O/Wt Last Vital Signs Temp 98.2 F 11/17/24 11:54 Pulse 95 11/17/24 11:54 Resp 35 H 11/17/24 11:54 BP 128/74 11/17/24 11:54 Pulse Ox 92 11/17/24 11:54 O2 Del Method Room Air 11/17/24 11:54 11/16/24 11/17/24 11/17/24 22:59 06:59 14:59 Intake Total 943.5 / 1393.5 170 / 1563.5 150 / 150 Balance 943.5 / 1393.5 170 / 1563.5 150 / 150 Weight last 48 hrs Weight 72.892 kg Weight 67.222 kg Physical Exam 2 Narrative: General: No acute distress, AO x1, appears to be lethargic and confused at this time. HEENT: PERRLA, pupils bilaterally equal and reactive, pallors not present Chest: Normal vesicular breath sounds, no added sounds, equal good air entry bilaterally CVS: S1-S2 regular, no murmurs, no tachycardia, no gallops, no rubs Abdomen: Soft, nontender, no organomegaly, bowel sounds present Neuro: No focal deficits, no facial deformity, Extremities: dressing over right foot Data 11/16/24 03:25 11/16/24 03:25 A&P Assessment and plan (1) Cellulitis of right foot: Cellulitis of the right foot, injury sustained 2 days ago. Worsening wound. Currently with elevated white blood cell count, hypotension upon admission, fever, tachycardia concerned that patient could go on to develop sepsis. He has received fluid bolus in the emergency room. Currently blood pressure is 140/97 mmHg. Start empiric antibiotic coverage with piperacillin/tazobactam and linezolid 600 mg IV every 12 hours. Blood cultures taken in the emergency room Appreciate podiatry consult, but has been debrided at bedside. Concerns for underlying abscess at this present time. (2) Atrial fibrillation, chronic: Atrial fibrillation, currently with RVR Patient may not be able to consistently take oral medications Typically on amiodarone and metoprolol at home Will start him on metoprolol 5 mg IV every 4 hours standing medication. If does not respond appropriately will likely need to start amiodarone IV versus digoxin. Chronically anticoagulated with warfarin. Currently subtherapeutic INR at 1.3. Will hold anticoagulation for now in case further surgical intervention is anticipated (3) Chronic anticoagulation: Typically on warfarin, subtherapeutic INR at 1.3 currently. (4) Dementia: Patient has baseline dementia. Family reports worsening of mental status since onset of illness. Likely has encephalopathy from acute infection on top of underlying dementia. CT of the head without any acute abnormalities. Plan History of CHF, ischemic cardiomyopathy. Last known ejection fraction of 30% from 2021. He has received fluid bolus in the emergency room, will hold off on further IV fluids unless necessitated. Currently blood pressure has improved to 140/97 at the time of this assessment. Hold antihypertensives with the exception of metoprolol for now Diabetes mellitus, typically on metformin at home. Insulin low-dose sliding scale for now. Check HbA1c. Hypokalemia: KCl 20 mEq p.o. now DVT prophylaxis: Lovenox 40 mg subcutaneously DNR/DNI as reported by family 11/14/2024 Patient is lethargic today. He is somnolent. He has received morphine a total of 4 mg since overnight. Additionally received Haldol 2 doses since overnight. This may be contributing to his somnolence. Will reduce morphine frequency to 2 mg IV every [address] head performed yesterday did not show any acute stroke. Will continue IV antibiotics including piperacillin tazobactam and linezolid today. Resume anticoagulation with Lovenox 80 mg subcutaneously every 12 hours. Patient appearing to be clinically dry. Dry parched mucous membranes, dry skin coated tongue. Start gentle IV fluids D5 normal saline at 30 cc an hour. Patient's HbA1c reviewed at ~5. Will obtain echocardiogram to estimate ejection fraction. Previously known from 2021 at 30%. If EF has improved may be able to use IV fluids more generously. Make NPO as high risk of aspiration with reduced mental status. Suspect that increased somnolence and lethargy on top of dementia is related to acute encephalopathy from infection. Digoxin added for rate control. Continue metoprolol 5 mg IV every 4 hours. Reviewed low TSH, low T3, elevated T4. Likely related to hyperthyroidism. Doubt this is contributing to his mental status currently. May be responsible for persistent tachycardia. Unable to use oral methimazole currently. Beta- blockers currently on. 11/15/2024. Patient is more awake today. He is able to have a simple conversation. Heart rate is better controlled. Continue metoprolol 5 mg IV every 6 hours.. Attempted speech and swallow evaluation today however was noted to be aspirating therefore continues to be NPO. Leukocytosis has resolved. Right foot cellulitis is improving. Continue IV antibiotics next 24 hours. His wound culture thus far showing coag positive staph, likely Staph aureus, pending final identification as to MSSA versus MRSA to decide discharge antibiotics. 11/16/24: D/c linezolid as MSSA on wound cx. Patient is lethargic again this morning. We will hold all doses of morphine and Ativan. Using Toradol and IV Tylenol for pain management instead. Attempt to have patient be as awake as possible to be able to undergo speech therapy assessment to assess if he will be safe to eat and take p.o. medications. Check respiratory viral panel, Tmax 99.3. INR low. Start overlap with Lovenox. Goal to start Lovenox once INR has reached 2.0. 11/17/2024 -Patient appears to be slightly lethargic however awake at this time. As per nursing staff he does appear to be a little more alert today. Morphine and Ativan doses have been held. Tylenol being used for pain management. Speech therapy assessment has been ordered for today. Respiratory viral panel pending. Patient currently on Lovenox and warfarin however has not received warfarin yesterday secondary to altered mental status and difficulty swallowing. We will continue to work with patient and wait for improvement. He did have few bites of pudding this morning as per nursing staff. He was seen by speech therapy on 15 November however will be reevaluated today as he is slightly more alert. I have been told family is coming in today as well. Attestations 2 Medical Necessity Statement*: Continue IV antibiotics, need for further speech therapy assessment, mentation is not currently back to baseline, start bridging anticoagulation Diagnoses Cellulitis of right foot L03.115 Atrial fibrillation, chronic I48.20 Chronic anticoagulation Z79.01 Dementia F03.90
[2024-11-17] MEDS: warfarin 2 mg Tablet PO (15:06)
--- NOTE | 2024-11-17 15:56 | PC.SLP ---
Attempted to see pt today. Pt was being transferred to another room on the unit. Pt was asleep. Discussed with nursing the status on his ability to consume any PO. She mentioned the of pt is considering a PEG tube for nutritional purposes due to low amount consumed. NSG reported pt consumed a few bites of pudding and a few sips of thin liquid through straw. Discussed with NSG on using thin liquids until more alert versus thickened liquids which will increase aspiration pneumonia versus water. REJECTOR will follow up tomorrow for an informal bedside swallow re-evaluation to determine if safe on pudding and thin liquids or able to upgrade diet. Angelica Siddiqui MA, CCC-REJECTOR
[2024-11-17 17:15] LABS: Glucose Point of Care 78 mg/dL (70-110)
[2024-11-17 21:14] LABS: Glucose Point of Care 77 mg/dL (70-110)
[2024-11-17 22:59] LABS: Glucose Point of Care 82 mg/dL (70-110)
[2024-11-18] VITALS (9 sets, daily range): BP systolic 116–137; BP diastolic 76–99; PULSE 82–113; RESP 18–39; TEMP 37–38.4; O2SAT 90–99
[2024-11-18] MEDS: enoxaparin 80 mg/0.8 mL Syringe 70 MG SUBCUT ×2 (00:36→13:05)
[2024-11-18 04:03] LABS: Glucose Point of Care 87 mg/dL (70-110)
--- NOTE | 2024-11-18 04:13 | XRR_ITS ---
PROCEDURE INFORMATION: Exam: XR Chest Exam date and time: 11/18/2024 5:02 AM Age: 74 years old Clinical indication: Shortness of breath; Prior surgery; Surgery date: 6+ months; Surgery type: Cabg; Additional info: Elevated respiratory rate TECHNIQUE: Imaging protocol: Radiologic exam of the chest. Views: 1 view. COMPARISON: CR XR chest 1V portable [id number] 11/16/2024 12:30 PM FINDINGS: Lungs: There are hazy bibasilar opacities. Pleural spaces: Costophrenic angles are not optimally visualized and small pleural effusions cannot be excluded. Heart/Mediastinum: Mild cardiomegaly. Vasculature: There is calcified plaque in the aortic knob. Bones/joints: Unremarkable. Gastrointestinal tract: Gaseous distension of large and small bowel loops in the visualized upper abdomen. Other findings: There are post-sternotomy changes and postoperative changes overlying the mediastinum. XR/XR chest 1V portable [id number] IMPRESSION: 1. Mild cardiomegaly. 2. Nonspecific hazy bibasilar opacities. Differential includes atelectasis and pneumonia.
[2024-11-18 04:16] LABS: Basophils % 0.4 %; Eosinophils # 0.1 10^3/uL (0.0-0.8); Eosinophils % 0.4 %; Hematocrit 36.8 % (37-53); Lymphocytes % 8.8 %; Mean Corpuscular HGB Conc 33.2 g/dL (30-55); Mean Corpuscular Hemoglobin 30.9 pg (27-33); Mean Corpuscular Volume 93.2 fl (82-101); Mean Platelet Volume 10.5 fL (7.4-10.4); Monocytes # 0.4 10^3/uL (0.2-0.9); Monocytes % 3.2 %; Neutrophils # 9.72 10^3/uL (1.8-7.7); Neutrophils % 86.1 %; Nucleated Red Blood Cells % 0 %; Platelet Count 228 10^3/cmm (157-399); Red Blood Count 3.95 10^6/uL (3.85-5.65); Red Cell Distribution Width 13.4 % (12.1-15.1); White Blood Count 11.28 10^3/uL (3.29-11.43)
[2024-11-18 04:41] LABS: Blood Urea Nitrogen 28 mg/dL (8-23); Calcium 7.7 mg/dL (8.5-10.5); Carbon Dioxide 26 mmol/L (22-29); Chloride 104 mmol/L (98-107); Creatinine Clr Calc Pharmacy 89.3879; Glucose 82 mg/dL (65-115); Magnesium 1.5 mg/dL (1.7-2.3); NT Pro B Type Natriuretic Pept 6460 pg/mL (0-125); Osmolality Calculated 297 mOsm/kg (285-295); Phosphorus 2.4 mg/dL (2.5-4.5); Sodium 141 mmol/L (136-145)
[2024-11-18] MEDS: piperacillin-tazobactam 3.375 GM in sodium chloride 0.9% (plus) 50 ML IV ×3 (04:49→21:46)
[2024-11-18] MEDS: acetaminophen 650 mg Supp PR ×2 (04:54→20:38)
[2024-11-18 06:38] LABS: Glucose Point of Care 71 mg/dL (70-110)
--- NOTE | 2024-11-18 07:48 | PC.NURSE ---
Patient hr was 70-90 Dr suresh notified and metoprolol was held. Patient was also tachypneic at 41 RR and fever of 100.2. New orders for CXR and 650 tylenol NH was given.
[2024-11-18 11:53] LABS: Glucose Point of Care 82 mg/dL (70-110)
--- NOTE | 2024-11-18 14:27 | PC.NURSE ---
took report and assumed care at 1420.
--- NOTE | 2024-11-18 14:32 | P.PN_ITS ---
Subjective 2 Subjective: Seen this morning. Patient wake up and knew his name. However was confused did not know where he was. Overnight had a fever and was more short of breath. Plan to be seen by speech therapy today. He has been aspirating. Is strictly NPO. He was more tachypneic this morning however as the day progressed tachypnea improved. Patient was reseen towards the afternoon in presence of family. Discussed with them patient's current status and offered a PEG tube. Did discuss with him the risk of aspiration with PEG tube remains the same. Patient's son voices that patient never wanted any tubes or to be on life support. His other son also mentioned that patient has had a progressive decline in the last few months. is also present at bedside. They will think about what to do further and let me know by tomorrow. I did tell him that due to his aspiration weakness dementia progressive decline if we do not do a PEG tube and hospice is a possibility or to pursue comfort measures. Patient family is leaning towards comfort measures however they will discuss along some cells before making a final decision. I did offer that if they would like a PEG tube and I will consult general surgery and cardiology for clearance and to risk stratification for surgical procedure. Vitals/I&O/Wt Last Vital Signs Temp 98.6 F 11/18/24 11:20 Pulse 104 H 11/18/24 11:20 Resp 18 11/18/24 11:20 BP 124/99 11/18/24 11:20 Pulse Ox 97 11/18/24 11:20 O2 Del Method Room Air 11/18/24 11:20 11/17/24 11/18/24 11/18/24 22:59 06:59 14:59 Intake Total 50 / 325 50 / 375 50 / 50 Balance 50 / 325 50 / 375 50 / 50 Weight last 48 hrs Weight 69.808 kg Weight 72.892 kg Physical Exam 2 Narrative: General: No acute distress, AO x1, appears to be lethargic and confused at this time. HEENT: PERRLA, pupils bilaterally equal and reactive, pallors not present Chest: Normal vesicular breath sounds, no added sounds, equal good air entry bilaterally CVS: S1-S2 regular, no murmurs, no tachycardia, no gallops, no rubs Abdomen: Soft, nontender, no organomegaly, bowel sounds present Neuro: No focal deficits, no facial deformity, Extremities: dressing over right foot Data 11/18/24 03:11 11/18/24 03:11 A&P Assessment and plan (1) Cellulitis of right foot: Cellulitis of the right foot, injury sustained 2 days ago. Worsening wound. Currently with elevated white blood cell count, hypotension upon admission, fever, tachycardia concerned that patient could go on to develop sepsis. He has received fluid bolus in the emergency room. Currently blood pressure is 140/97 mmHg. Start empiric antibiotic coverage with piperacillin/tazobactam and linezolid 600 mg IV every 12 hours. Blood cultures taken in the emergency room Appreciate podiatry consult, but has been debrided at bedside. Concerns for underlying abscess at this present time. (2) Atrial fibrillation, chronic: Atrial fibrillation, currently with RVR Patient may not be able to consistently take oral medications Typically on amiodarone and metoprolol at home Will start him on metoprolol 5 mg IV every 4 hours standing medication. If does not respond appropriately will likely need to start amiodarone IV versus digoxin. Chronically anticoagulated with warfarin. Currently subtherapeutic INR at 1.3. Will hold anticoagulation for now in case further surgical intervention is anticipated (3) Chronic anticoagulation: Typically on warfarin, subtherapeutic INR at 1.3 currently. (4) Dementia: Patient has baseline dementia. Family reports worsening of mental status since onset of illness. Likely has encephalopathy from acute infection on top of underlying dementia. CT of the head without any acute abnormalities. (5) Goals of care, counseling/discussion: Plan History of CHF, ischemic cardiomyopathy. Last known ejection fraction of 30% from 2021. He has received fluid bolus in the emergency room, will hold off on further IV fluids unless necessitated. Currently blood pressure has improved to 140/97 at the time of this assessment. Hold antihypertensives with the exception of metoprolol for now Diabetes mellitus, typically on metformin at home. Insulin low-dose sliding scale for now. Check HbA1c. Hypokalemia: KCl 20 mEq p.o. now DVT prophylaxis: Lovenox 40 mg subcutaneously DNR/DNI as reported by family 11/14/2024 Patient is lethargic today. He is somnolent. He has received morphine a total of 4 mg since overnight. Additionally received Haldol 2 doses since overnight. This may be contributing to his somnolence. Will reduce morphine frequency to 2 mg IV every [address] head performed yesterday did not show any acute stroke. Will continue IV antibiotics including piperacillin tazobactam and linezolid today. Resume anticoagulation with Lovenox 80 mg subcutaneously every 12 hours. Patient appearing to be clinically dry. Dry parched mucous membranes, dry skin coated tongue. Start gentle IV fluids D5 normal saline at 30 cc an hour. Patient's HbA1c reviewed at ~5. Will obtain echocardiogram to estimate ejection fraction. Previously known from 2021 at 30%. If EF has improved may be able to use IV fluids more generously. Make NPO as high risk of aspiration with reduced mental status. Suspect that increased somnolence and lethargy on top of dementia is related to acute encephalopathy from infection. Digoxin added for rate control. Continue metoprolol 5 mg IV every 4 hours. Reviewed low TSH, low T3, elevated T4. Likely related to hyperthyroidism. Doubt this is contributing to his mental status currently. May be responsible for persistent tachycardia. Unable to use oral methimazole currently. Beta- blockers currently on. 11/15/2024. Patient is more awake today. He is able to have a simple conversation. Heart rate is better controlled. Continue metoprolol 5 mg IV every 6 hours.. Attempted speech and swallow evaluation today however was noted to be aspirating therefore continues to be NPO. Leukocytosis has resolved. Right foot cellulitis is improving. Continue IV antibiotics next 24 hours. His wound culture thus far showing coag positive staph, likely Staph aureus, pending final identification as to MSSA versus MRSA to decide discharge antibiotics. 11/16/24: D/c linezolid as MSSA on wound cx. Patient is lethargic again this morning. We will hold all doses of morphine and Ativan. Using Toradol and IV Tylenol for pain management instead. Attempt to have patient be as awake as possible to be able to undergo speech therapy assessment to assess if he will be safe to eat and take p.o. medications. Check respiratory viral panel, Tmax 99.3. INR low. Start overlap with Lovenox. Goal to start Lovenox once INR has reached 2.0. 11/17/2024 -Patient appears to be slightly lethargic however awake at this time. As per nursing staff he does appear to be a little more alert today. Morphine and Ativan doses have been held. Tylenol being used for pain management. Speech therapy assessment has been ordered for today. Respiratory viral panel pending. Patient currently on Lovenox and warfarin however has not received warfarin yesterday secondary to altered mental status and difficulty swallowing. We will continue to work with patient and wait for improvement. He did have few bites of pudding this morning as per nursing staff. He was seen by speech therapy on 15 November however will be reevaluated today as he is slightly more alert. I have been told family is coming in today as well. 11/18/2024 -Patient was more awake alert this morning however throughout the day as the day progressed he became more lethargic and sleepy. Ativan and morphine are not being given at this time. Speech therapy ordered for today. Patient did have a speech evaluation attempted however was too sleepy to participate. Could not get evaluated today. I did discuss with the patient's family regarding a PEG tube. They will think about this further and let me know. If patient's family decides for PEG tube I will consult general surgery. With patient's progressive decline and not wanting any kind of life support as per patient's son family is considering hospice comfort care however are undecided. We will follow-up with the family again tomorrow.. Attestations 2 Medical Necessity Statement*: continued hospitalization at this time for progressive dementia, failure to thrive and aspiration pneumonia. Diagnoses Cellulitis of right foot L03.115 Atrial fibrillation, chronic I48.20 Chronic anticoagulation Z79.01 Dementia F03.90 Goals of care, counseling/discussion Z71.89
--- NOTE | 2024-11-18 14:40 | PC.SLP ---
The pt is not alert enough to participate at this time. Not safe for oral intake.
[2024-11-18 16:51] LABS: Glucose Point of Care 75 mg/dL (70-110)
[2024-11-18] MEDS: metoprolol tartrate 1 mg/1 mL SDV 5 mL 5 MG IVP ×2 (16:54→21:45)
--- NOTE | 2024-11-18 17:04 | PC.NURSE ---
Provider is updated that family has decided to put patient on comfort care.
[2024-11-18 21:21] LABS: Glucose Point of Care 77 mg/dL (70-110)
[2024-11-19] VITALS (7 sets, daily range): BP systolic 123–151; BP diastolic 64–81; PULSE 101–130; RESP 19–40; TEMP 37–37.7; O2SAT 86–98
[2024-11-19] MEDS: enoxaparin 80 mg/0.8 mL Syringe 70 MG SUBCUT (00:45)
[2024-11-19] MEDS: acetaminophen 650 mg Supp PR (00:46)
[2024-11-19] MEDS: metoprolol tartrate 1 mg/1 mL SDV 5 mL 5 MG IVP ×2 (03:46→09:14)
[2024-11-19] MEDS: piperacillin-tazobactam 3.375 GM in sodium chloride 0.9% (plus) 50 ML IV (03:46)
[2024-11-19 05:51] LABS: INR 1.76 (0.8-1.2)
[2024-11-19 06:36] LABS: Glucose Point of Care 102 mg/dL (70-110)
--- NOTE | 2024-11-19 07:24 | PC.NURSE ---
Patient family expressed that they are wanting patient to be on comfort care. was notified by day RN. No orders for comfort care was entered. Dr Howard was also notified and no new orders at this time.
--- NOTE | 2024-11-19 11:04 | P.PN_ITS ---
Subjective 2 Subjective: Seen this morning. Patient appears to be very lethargic. Will open his eyes when his name is called. Had fever overnight to 101.8. As per nursing staff continues to have coughing episodes and is aspirating. Had a long discussion with patient's family regarding patient's current management and care. Please see note from yesterday. ? Family requested for comfort measures. Discussed with patient's over the phone today. She states that they are sure they do not want a PEG tube and want to keep him comfortable. She does not want him to suffer. She states this sounds at the same position. She would like us to transition to comfort measures to keep patient comfortable at this time. Vitals/I&O/Wt Last Vital Signs Temp 98.6 F 11/19/24 07:23 Pulse 101 H 11/19/24 07:23 Resp 36 H 11/19/24 07:23 BP 128/81 11/19/24 07:23 Pulse Ox 95 11/19/24 07:23 O2 Del Method Room Air 11/19/24 07:23 11/18/24 11/19/24 11/19/24 22:59 06:59 14:59 Intake Total 50 / 100 70 / 170 50 / 50 Balance 50 / 100 70 / 170 50 / 50 Weight last 48 hrs Weight 68.855 kg Weight 69.808 kg Physical Exam 2 Narrative: General: No acute distress, oriented to self only, appears to be lethargic and confused at this time. HEENT: PERRLA, pupils bilaterally equal and reactive, pallors not present Chest: Rhonchi at right base, left base diminished breath sounds, slightly tachypneic, rest of lungs clear to auscultation. CVS: S1-S2 regular, no murmurs, tachycardia present, pulse 110. No gallops, no rubs Abdomen: Soft, nontender, no organomegaly, bowel sounds present Neuro: Lethargic, responds to his name however unable to do a neuroexam secondary to lethargy and somnolence. Extremities: dressing over right foot Data 11/18/24 03:11 11/18/24 03:11 Micro: Microbiology 11/13/24 14:28 Blood Culture - Final Blood NO GROWTH AFTER 5 DAYS 11/13/24 14:28 Blood Culture - Final Blood NO GROWTH AFTER 5 DAYS A&P Assessment and plan (1) Cellulitis of right foot: Cellulitis of the right foot, injury sustained 2 days ago. Worsening wound. Currently with elevated white blood cell count, hypotension upon admission, fever, tachycardia concerned that patient could go on to develop sepsis. He has received fluid bolus in the emergency room. Currently blood pressure is 140/97 mmHg. Start empiric antibiotic coverage with piperacillin/tazobactam and linezolid 600 mg IV every 12 hours. Blood cultures taken in the emergency room Appreciate podiatry consult, but has been debrided at bedside. Concerns for underlying abscess at this present time. (2) Atrial fibrillation, chronic: Atrial fibrillation, currently with RVR Patient may not be able to consistently take oral medications Typically on amiodarone and metoprolol at home Will start him on metoprolol 5 mg IV every 4 hours standing medication. If does not respond appropriately will likely need to start amiodarone IV versus digoxin. Chronically anticoagulated with warfarin. Currently subtherapeutic INR at 1.3. Will hold anticoagulation for now in case further surgical intervention is anticipated (3) Chronic anticoagulation: Typically on warfarin, subtherapeutic INR at 1.3 currently. (4) Dementia: Patient has baseline dementia. Family reports worsening of mental status since onset of illness. Likely has encephalopathy from acute infection on top of underlying dementia. CT of the head without any acute abnormalities. (5) Goals of care, counseling/discussion: Plan History of CHF, ischemic cardiomyopathy. Last known ejection fraction of 30% from 2021. He has received fluid bolus in the emergency room, will hold off on further IV fluids unless necessitated. Currently blood pressure has improved to 140/97 at the time of this assessment. Hold antihypertensives with the exception of metoprolol for now Diabetes mellitus, typically on metformin at home. Insulin low-dose sliding scale for now. Check HbA1c. Hypokalemia: KCl 20 mEq p.o. now DVT prophylaxis: Lovenox 40 mg subcutaneously DNR/DNI as reported by family 11/14/2024 Patient is lethargic today. He is somnolent. He has received morphine a total of 4 mg since overnight. Additionally received Haldol 2 doses since overnight. This may be contributing to his somnolence. Will reduce morphine frequency to 2 mg IV every [address] head performed yesterday did not show any acute stroke. Will continue IV antibiotics including piperacillin tazobactam and linezolid today. Resume anticoagulation with Lovenox 80 mg subcutaneously every 12 hours. Patient appearing to be clinically dry. Dry parched mucous membranes, dry skin coated tongue. Start gentle IV fluids D5 normal saline at 30 cc an hour. Patient's HbA1c reviewed at ~5. Will obtain echocardiogram to estimate ejection fraction. Previously known from 2021 at 30%. If EF has improved may be able to use IV fluids more generously. Make NPO as high risk of aspiration with reduced mental status. Suspect that increased somnolence and lethargy on top of dementia is related to acute encephalopathy from infection. Digoxin added for rate control. Continue metoprolol 5 mg IV every 4 hours. Reviewed low TSH, low T3, elevated T4. Likely related to hyperthyroidism. Doubt this is contributing to his mental status currently. May be responsible for persistent tachycardia. Unable to use oral methimazole currently. Beta- blockers currently on. 11/15/2024. Patient is more awake today. He is able to have a simple conversation. Heart rate is better controlled. Continue metoprolol 5 mg IV every 6 hours.. Attempted speech and swallow evaluation today however was noted to be aspirating therefore continues to be NPO. Leukocytosis has resolved. Right foot cellulitis is improving. Continue IV antibiotics next 24 hours. His wound culture thus far showing coag positive staph, likely Staph aureus, pending final identification as to MSSA versus MRSA to decide discharge antibiotics. 11/16/24: D/c linezolid as MSSA on wound cx. Patient is lethargic again this morning. We will hold all doses of morphine and Ativan. Using Toradol and IV Tylenol for pain management instead. Attempt to have patient be as awake as possible to be able to undergo speech therapy assessment to assess if he will be safe to eat and take p.o. medications. Check respiratory viral panel, Tmax 99.3. INR low. Start overlap with Lovenox. Goal to start Lovenox once INR has reached 2.0. 11/17/2024 -Patient appears to be slightly lethargic however awake at this time. As per nursing staff he does appear to be a little more alert today. Morphine and Ativan doses have been held. Tylenol being used for pain management. Speech therapy assessment has been ordered for today. Respiratory viral panel pending. Patient currently on Lovenox and warfarin however has not received warfarin yesterday secondary to altered mental status and difficulty swallowing. We will continue to work with patient and wait for improvement. He did have few bites of pudding this morning as per nursing staff. He was seen by speech therapy on 15 November however will be reevaluated today as he is slightly more alert. I have been told family is coming in today as well. 11/18/2024 -Patient was more awake alert this morning however throughout the day as the day progressed he became more lethargic and sleepy. Ativan and morphine are not being given at this time. Speech therapy ordered for today. Patient did have a speech evaluation attempted however was too sleepy to participate. Could not get evaluated today. I did discuss with the patient's family regarding a PEG tube. They will think about this further and let me know. If patient's family decides for PEG tube I will consult general surgery. With patient's progressive decline and not wanting any kind of life support as per patient's son family is considering hospice comfort care however are undecided. We will follow-up with the family again tomorrow.. 11/19/2024 -Another goals of care discussion took place over the phone with patient's . She is requesting comfort measures at this time. Family does not want to proceed with a PEG tube. She does not want patient to suffer and would like to keep him comfortable. I discussed with her at length patient's status today. ? Patient will be kept comfortable at this time as per family wishes. postal worker notified. ? Family will potentially be coming in later today. Attestations 2 Medical Necessity Statement*: Comfort measures only. Diagnoses Cellulitis of right foot L03.115 Atrial fibrillation, chronic I48.20 Chronic anticoagulation Z79.01 Dementia F03.90 Goals of care, counseling/discussion Z71.89
[2024-11-19 11:30] LABS: Glucose Point of Care 78 mg/dL (70-110)
[2024-11-19] MEDS: morphine 4 mg/mL SDV 1 mL IVP (13:02)
--- NOTE | 2024-11-19 14:37 | PC.NURSE ---
Report passed to Anna Morillo RN on med surg/
[2024-11-19] MEDS: LORazepam 2 mg/mL INJ 1 mL IVP (15:39)
[2024-11-19 16:34] LABS: Glucose Point of Care 86 mg/dL (70-110)
[2024-11-19] MEDS: morphine 10 mg/0.5 mL oral liq UD SUBLINGUAL (20:14)
--- NOTE | 2024-11-20 00:01 | PC.NURSE ---
Addendum entered by Lana Godfrey RN 11/20/24 00:04: and son notified. Patient did not have any belongings at bedside. Original Note: Patient TOD 21:55. Verified with second RN. [facility] notified and stated that they would be contacting family and that patient could be placed in morgue. Patient transferred [place] [facility] [place] at this time, awaiting to hear back from [facility].
--- NOTE | 2024-11-25 23:07 | P.DES_ITS ---
Discharge Providers DDS Date of Admission: 11/13/24 18:38 Date Summary Completed: 11/30/24 Attending Provider at Admission: Angela Mesa MD Attending Provider at Discharge: Angie Mcdonald MD Primary Care Provider: TODD Douglas Diagnoses Hospital Diagnoses (1) Cellulitis of right foot: (2) Atrial fibrillation, chronic: (3) Chronic anticoagulation: (4) Dementia: (5) Goals of care, counseling/discussion: Reason for Visit Reason for Visit right foot wound/swelling Summary Summary Summary: Comfort measures, comfortably see progress notes for details software writer not present at time of . Additional Data Advance directives?: No Discharge Plan Discharge Patient Disposition: Condition: Stable Probable Cause of Probable cause of : Cardiac arrest DS Attestations Time Spent in /Discharge Care*: less than 30 min Quality - AMI: AMI present?: No Quality - Stroke: CVA present?: No Quality - VTE: VTE present?: No Coding Level of Care Code Acute Code for [facility] Fwd Diagnoses Cellulitis of right foot L03.115 Atrial fibrillation, chronic I48.20 Chronic anticoagulation Z79.01 Dementia F03.90 Goals of care, counseling/discussion Z71.89
== END 2024-11-20 00:04 | disposition expired | DRG 602 ==
LOC: ER 15:59 → CSU 18:39 → MEDSURG 11-19 15:30
PROVIDERS: Student in an Organized Health Care Education/Training Program; Admitting Provider Student in an Organized Health Care Education/Training Program; Emergency Provider Emergency Medicine; PCP Nurse Practitioner Family; Visit Provider Internal Medicine
DX: L03.115 Cellulitis of right lower limb (principal); G93.41 Metabolic encephalopathy; I48.20 Chronic atrial fibrillation, unspecified; F03.911 Unspecified dementia, unspecified severity, with agitation; I50.22 Chronic systolic (congestive) heart failure; B95.61 Methicillin susceptible Staphylococcus aureus infection as the cause of diseases classified elsewhere; I46.9 Cardiac arrest, cause unspecified; I11.0 Hypertensive heart disease with heart failure; I25.5 Ischemic cardiomyopathy; E11.621 Type 2 diabetes mellitus with foot ulcer; L97.512 Non-pressure chronic ulcer of other part of right foot with fat layer exposed; E87.6 Hypokalemia; Z66 Do not resuscitate; I95.9 Hypotension, unspecified; R00.0 Tachycardia, unspecified; R13.10 Dysphagia, unspecified; F41.9 Anxiety disorder, unspecified; E78.2 Mixed hyperlipidemia; I25.10 Atherosclerotic heart disease of native coronary artery without angina pectoris; R25.1 Tremor, unspecified; Z79.01 Long term (current) use of anticoagulants; Z51.5 Encounter for palliative care; Z79.84 Long term (current) use of oral hypoglycemic drugs; Z95.1 Presence of aortocoronary bypass graft; Z83.3 Family history of diabetes mellitus; Z82.49 Family history of ischemic heart disease and other diseases of the circulatory system; Z82.0 Family history of epilepsy and other diseases of the nervous system
CPT/HCPCS: 36415; 36416; 51702; 71045; 73630; 80048; 80053; 80162; 82746; 82962; 83036; 83540; 83550; 83605; 83735; 83880; 84100; 84439; 84443; 84481; 84484; 85025; 85610; 85651; 86140; 86705; 86706; 86709; 86803; 87040; 87070; 87077; 87186; 87340; 87486; 87581; 87633; 92523; 92610; 93005; 93308; 96365; 96367; 96372; 96375; 96376; 99285; J0131; J1160; J1630; J1650; J1885; J2020; J2060; J2270; J2543; J3370; J3480; J3490; J7030; J7042; J7050; J7799